=== PATIENT | female | born 1940 | race Caucasian/White ===

== ENCOUNTER 2017-01-25 16:12 | Outpatient (CLI) | payer MEDICARE ==
--- NOTE | 2017-01-26 09:27 | XRAY Report ---
BILATERAL HIPS AND PELVIS: 01/25/2017 CLINICAL INDICATION: Bilateral hip pain. FINDINGS: Frontal view of the hips and pelvis and bilateral frogleg lateral views of the hips demons trate mild degenerative changes in both hips. There is no evidence of acute fracture. The visualize d bowel gas pattern is normal. IMPRESSION: MILD BILATERAL HIP OSTEOARTHRITIS. JOB #: [id number] EXT JOB #:[id number]
--- NOTE | 2017-01-26 09:32 | XRAY Report ---
THREE-VIEW BILATERAL KNEES: 01/25/2017 CLINICAL INDICATION: Pain. FINDINGS: AP, lateral, sunrise views of both knees are compared to previous films of the right knee of 12/05/2012. There is moderate bilateral osteoarthritis, worse laterally on the right and medially on the left. There is no evidence of acute fracture. A moderate right effusion is present. No lef t effusion is seen. IMPRESSION: MODERATE BILATERAL OSTEOARTHRITIS. MODERATE RIGHT JOINT EFFUSION. NO EVIDENCE OF FRACT URE. JOB #: [id number] EXT JOB #:[id number]
== END 2017-01-25 16:13 | disposition home or self-care (01) ==
LOC: DI 16:12
PROVIDERS: ATTEND Internal Medicine
DX: M16.0 Bilateral primary osteoarthritis of hip (principal); M17.0 Bilateral primary osteoarthritis of knee; M25.461 Effusion, right knee
CPT/HCPCS: 73521

== ENCOUNTER 2017-02-10 09:19 | Day surgery (SDC) | payer MEDICARE ==
[~2017-02-10 09:19] MED LIST: PHENYLEPHRINE 2.5% OPHTH 2 ML DROPS ONE
[2017-02-10] MEDS ORDERED: PHENYLEPHRINE 2.5% OPHTH 2 ML DROPS OPTH ONE (09:52)
[2017-02-10] MEDS ORDERED: CYCLOPENTOLATE 1% OPHTH DROPS 2 ML OPTH ONE (09:52)
[2017-02-10] MEDS ORDERED: PROPARACAINE 0.5% OPHTH DROPS 15 ML OPTH ONE ×2 (09:52→10:59)
[2017-02-10] MEDS ORDERED: KETOROLAC 0.45% OPHTH DROPS OPTH ONE (09:52)
[2017-02-10] MEDS ORDERED: LACTATED RINGERS 500 ML IV ONE (09:53)
[2017-02-10] MEDS ORDERED: CHONDR SULF/HYALURONATE SYRINGE IO ONE (10:59)
[2017-02-10] MEDS ORDERED: TIMOLOL 0.5% OPHTH DROPS OPTH ONE (10:59)
[2017-02-10] MEDS ORDERED: EPINEPHrine 1 MG/ML AMP IVP ONE (10:59)
[2017-02-10] MEDS ORDERED: BRIMONIDINE 0.2% OPHTH DROPS 5 ML OPTH ONE (10:59)
[2017-02-10] MEDS ORDERED: MIDAZOLAM 2 MG/2 ML VIAL IVP ONE (11:00)
[2017-02-10] MEDS ORDERED: BSS/LIDOCAINE/EPINEPHRINE 1 ML SYRINGE IO ONE (11:00)
[2017-02-10] MEDS ORDERED: TRIAMCIN/MOXIFLOX/VANCO 1 ML VIAL IO ONE (11:00)
[2017-02-10 11:51] VITALS: BP 131/67
--- NOTE | 2017-02-10 14:51 | OPERATIVE REPORT ---
DATE OF SURGERY: 02/10/2017 00:00:00 PREOPERATIVE DIAGNOSIS: Visually significant cataract, right eye. This was her first cataract surgery. POSTOPERATIVE DIAGNOSIS: Visually significant cataract, right eye. This was her first cataract surgery. NAME OF PROCEDURE: Phacoemulsification with posterior chamber intraocular lens implant, right eye. SURGEON: Hamzah Franks MD ANESTHESIA: Monitored anesthesia care. COMPLICATIONS: None. OPERATIVE INDICATIONS: This is a 76-year-old woman with progressive vision loss in the right eye due to 2+ nuclear sclerotic and 3+ cortical cataract. Best corrected visual acuity was 20/40 with glare to 20/60 in the right eye. Indications for surgery were overall decrease in vision, difficulty reading, difficulty seeing street signs, and just overall complaint of cloudy vision. She was consented at length concerning the risks and benefits of cataract surgery after which she expressed a desire to proceed with surgery. OPERATIVE PROCEDURE: The patient was taken into OR #2 and placed under monitored anesthesia care. A surgical time-out was conducted confirming correct patient, correct procedure and correct surgical site. She was placed under the LenSx laser and her eye docked to the laser interface. The laser performed the capsulotomy, lens softening, phaco wounds, and arcuate keratotomy incisions. She was then moved to the operating microscope, given topical anesthesia, and then prepped and draped in the usual sterile fashion. The eye was entered at the 12 and 9 o'clock positions. Intracameral Shugarcaine was injected into the anterior chamber, followed by Viscoat. Capsulorrhexis flap created by the LenSx laser was removed from the anterior chamber. The nucleus was hydrodissected and phacoemulsified. Cortex was evacuated using automated infusion aspiration. Provisc was injected into the capsular bag and a 16.5 diopter toric intraocular lens was inserted into the bag and rotated into axis 093. I/A was used to evacuate the viscoelastic materials while holding the lens in the proper position. The eye was inflated to physiologic pressure using balanced salt solution and found to be watertight. Again, the lens position was verified. Approximately 0.8 mL of a mixture of triamcinolone, moxifloxacin, and vancomycin was injected subconjunctivally in the superior quadrant for infection and inflammation prophylaxis. The wounds were then checked again. The patient was taken from the operating room in good condition and given postoperative instructions. JOB #: [id number] EXT JOB #:[id number]
== END 2017-02-10 09:20 | disposition home or self-care (01) ==
LOC: SDS 09:19
PROVIDERS: ATTEND Ophthalmology
PROC: 08RJ3JZ Replacement of Right Lens with Synthetic Substitute, Percutaneous Approach (ICD-10-PCS; principal; 2017-02-10 10:30)
DX: H25.811 Combined forms of age-related cataract, right eye (principal); R03.0 Elevated blood-pressure reading, without diagnosis of hypertension; E03.9 Hypothyroidism, unspecified; Z83.3 Family history of diabetes mellitus; Z90.710 Acquired absence of both cervix and uterus
CPT/HCPCS: 66984; A9270; V2632; V2787

== ENCOUNTER 2017-03-17 08:55 | Day surgery (SDC) | payer MEDICARE ==
[2017-03-17] MEDS ORDERED: KETOROLAC 0.45% OPHTH DROPS ONE (09:35)
[2017-03-17] MEDS ORDERED: CYCLOPENTOLATE 1% OPHTH DROPS 2 ML ONE (09:36)
[2017-03-17] MEDS ORDERED: PROPARACAINE 0.5% OPHTH DROPS 15 ML ONE (09:36)
[2017-03-17] MEDS ORDERED: PHENYLEPHRINE 2.5% OPHTH 2 ML DROPS ONE (09:36)
[2017-03-17] MEDS ORDERED: LACTATED RINGERS 500 ML IV ONE (09:37)
[2017-03-17] MEDS ORDERED: PHENYLEPHRINE 2.5% OPHTH 2 ML DROPS OPTH ONE (09:50)
[2017-03-17] MEDS ORDERED: CYCLOPENTOLATE 1% OPHTH DROPS 2 ML OPTH ONE (09:50)
[2017-03-17] MEDS ORDERED: PROPARACAINE 0.5% OPHTH DROPS 15 ML OPTH ONE ×2 (09:50→11:05)
[2017-03-17] MEDS ORDERED: KETOROLAC 0.45% OPHTH DROPS OPTH ONE (09:50)
[2017-03-17] MEDS ORDERED: MIDAZOLAM 2 MG/2 ML VIAL ONE (10:34)
[2017-03-17] MEDS ORDERED: BRIMONIDINE 0.2% OPHTH DROPS 5 ML OPTH ONE (11:04)
[2017-03-17] MEDS ORDERED: EPINEPHrine 1 MG/ML AMP IVP ONE (11:04)
[2017-03-17] MEDS ORDERED: TIMOLOL 0.5% OPHTH DROPS OPTH ONE (11:05)
[2017-03-17] MEDS ORDERED: BSS/LIDOCAINE/EPINEPHRINE 1 ML SYRINGE IO ONE ×2 (11:05)
[2017-03-17] MEDS ORDERED: TRIAMCIN/MOXIFLOX/VANCO 1 ML VIAL IO ONE ×2 (11:05)
[2017-03-17] MEDS ORDERED: CHONDR SULF/HYALURONATE SYRINGE IO ONE (11:05)
[2017-03-17 11:24] VITALS: BP 130/72
--- NOTE | 2017-03-18 03:40 | OPERATIVE REPORT ---
DATE OF SURGERY: 03/17/2017 00:00:00 PREOPERATIVE DIAGNOSIS: Visually significant cataract left eye. Cataract surgery was performed on the right eye on 10 February 2017. POSTOPERATIVE DIAGNOSIS: Visually significant cataract left eye. Cataract surgery was performed on the right eye on 10 February 2017. NAME OF PROCEDURE: Phacoemulsification posterior chamber intraocular lens implant, left eye. SURGEON: Hamzah Franks M.D. ANESTHESIA: Monitored anesthesia care. COMPLICATIONS: None. OPERATIVE INDICATIONS: This is a 76-year-old woman with progressive vision loss in the right eye due to 3+ cortical cataract. Best corrected visual acuity was 20/30 in the left eye. INDICATIONS FOR SURGERY: Overall decrease in vision, difficulty seeing words on a computer screen and difficulty with reading. She was consented at length concerning risks and benefits of cataract surgery after which she expressed a desire to proceed with surgery. OPERATIVE PROCEDURE: The patient was taken into OR #2 and placed under monitored anesthesia care. A surgical timeout was conducted confirming correct patient, correct procedure and correct surgical site. She was placed under the LenSx laser and her eye docked to laser interface. Laser performed a capsulotomy and lens softening, phaco-wounds and ocular keratotomy incisions. She was then moved to the operating microscope, given topical anesthesia and prepped and draped in the usual sterile fashion. The eye was entered at the 6 and 3 o'clock positions. Intracameral Shugarcaine was injected into the anterior chamber followed by Viscoat. Capsulorhexis flap created by the LenSx laser was removed from the anterior chamber. The nucleus was hydrodissected and phacoemulsified. The cortex was evacuated using automated infusion aspiration. Provisc was injected in the capsular bag and an 18.0 Diopter Toric intraocular lens was inserted into the bag and rotated to axis 0.92. Approximately 0.7 mL of a mixture of triamcinolone, moxifloxacin, vancomycin was injected subconjunctivally in the superior quadrant for infection and inflammation prophylaxis. I/A was used to evacuate the viscoelastic materials and the new lens verified to be in the proper position. The eye was inflated to a physiologic pressure using balanced salt solution and found to be watertight. The IOL axis was again verified to be at the proper orientation of axis 0.92. The patient was taken from the operating room in good condition and given postoperative instructions. JOB #: [id number] EXT JOB #:[id number] MTDD
== END 2017-03-17 08:56 | disposition home or self-care (01) ==
LOC: SDS 08:55
PROVIDERS: ATTEND Ophthalmology
PROC: 08RK3JZ Replacement of Left Lens with Synthetic Substitute, Percutaneous Approach (ICD-10-PCS; principal; 2017-03-17 10:00)
DX: H25.812 Combined forms of age-related cataract, left eye (principal); I10 Essential (primary) hypertension; E03.9 Hypothyroidism, unspecified; Z83.3 Family history of diabetes mellitus; Z90.710 Acquired absence of both cervix and uterus
CPT/HCPCS: 66984; A9270; J3490; V2632

== ENCOUNTER 2017-05-11 08:37 | Outpatient (CLI) | payer MEDICARE ==
--- NOTE | 2017-05-13 07:06 | Mammography Report ---
DIGITAL SCREENING MAMMOGRAPHY: 05/11/2017 COMPARISON: 01/03/2014, 12/02/2011, 09/28/2010, 03/16/2010, 09/12/2009, 08/27/2009, and 05/10/2007. TECHNIQUE: Bilateral digital CC and MLO projections. FINDINGS: There are scattered fibroglandular densities. There is a stereotactic biopsy clip in the anterior right breast. A lateral nodule in the right breast is unchanged compared to priors. Otherw ise, no dominant mass, architectural distortion, skin thickening, suspicious microcalcifications, or interval change. IMPRESSION: NEGATIVE. BIRADS CATEGORY 1. SUGGEST RETURN TO ROUTINE SCREENING IN 12 MONTHS. STANDARD QUALIFYING STATEMENTS 1. This examination was reviewed with the aid of Computer-Aided Detection (CAD). 2. A negative or benign imaging report should not delay biopsy if clinically suspicious findings are present. Consider surgical consultation if warranted. More than 5% of cancers are not identified by i maging. 3. Dense breasts may obscure an underlying neoplasm. JOB #: [id number] EXT JOB #:[id number]
== END 2017-05-11 08:38 | disposition home or self-care (01) ==
LOC: DI.N 08:37
PROVIDERS: ATTEND Internal Medicine
DX: Z12.31 Encounter for screening mammogram for malignant neoplasm of breast (principal)
CPT/HCPCS: 77067

== ENCOUNTER 2017-05-11 13:39 | Outpatient (CLI) | payer MEDICARE ==
[2017-05-11 13:26] LABS: BASOPHILS # (AUTO) 0.1 10^3/uL (0.0-0.1); BASOPHILS % (AUTO) 0.8 %; EOSINOPHILS # (AUTO) 0.1 10^3/uL (0.0-0.7); EOSINOPHILS % (AUTO) 1.1 %; HCT - HEMATOCRIT 43.1 % (37.0-47.0); HGB - HEMOGLOBIN 14.5 g/dL (12.0-16.0); LYMPHOCYTES # (AUTO) 0.9 10^3/uL (1.5-3.5); LYMPHOCYTES % (AUTO) 14.3 %; MEAN CORPUSCULAR HEMOGLOBIN 28.6 pg (27.0-31.0); MEAN CORPUSCULAR HGB CONC 33.6 g/dL (32.0-36.0); MEAN CORPUSCULAR VOLUME 85.2 fL (81.0-99.0); MEAN PLATELET VOLUME 9.8 fL (7.9-10.8); MONOCYTES # (AUTO) 0.5 10^3/uL (0.0-1.0); MONOCYTES % (AUTO) 8.1 %; NEUTROPHILS # (AUTO) 4.5 10^3/uL (1.5-6.6); NEUTROPHILS % (AUTO) 75.7 %; RED BLOOD COUNT 5.06 10^6/uL (4.20-5.40); RED CELL DISTRIBUTION WIDTH 14.4 % (12.0-15.0)
[2017-05-11 13:52] LABS: BILIRUBIN,TOTAL 1.4 mg/dL (0.2-1.0); BUN - BLOOD UREA NITROGEN 11 mg/dL (6-20); CALCIUM 9.2 mg/dL (8.5-10.3); CARBON DIOXIDE - CO2 28 mmol/L (21-32); CHLORIDE 101 mmol/L (101-111); CHOL/HDL RATIO 4.4 (<4.4); CHOLESTEROL 194 mg/dL; CREATININE 0.7 mg/dL (0.4-1.0); GFR - MDRD 82 (>89); GLUCOSE 97 mg/dL (70-100); HDL CHOLESTEROL 44 mg/dL; LDL/HDL RATIO 2.7 (<4.4); POTASSIUM 3.5 mmol/L (3.5-5.0); SODIUM 138 mmol/L (135-145); TRIGLYCERIDES 148 mg/dL; VLDL CHOLESTEROL 30 mg/dL
== END 2017-05-11 13:40 | disposition home or self-care (01) ==
LOC: LAB.N 13:39
PROVIDERS: ATTEND Internal Medicine
DX: D70.9 Neutropenia, unspecified (principal); E03.9 Hypothyroidism, unspecified; E78.5 Hyperlipidemia, unspecified; I10 Essential (primary) hypertension
CPT/HCPCS: 36415; 80053; 80061; 84443; 85025

== ENCOUNTER 2018-06-26 09:05 | Outpatient (CLI) | payer MEDICARE ==
[2018-06-26 13:14] LABS: BASOPHILS % (AUTO) 0.7 %; EOSINOPHILS # (AUTO) 0.1 10^3/uL (0.0-0.7); EOSINOPHILS % (AUTO) 1.6 %; HGB - HEMOGLOBIN 12.3 g/dL (12.0-16.0); LYMPHOCYTES # (AUTO) 0.9 10^3/uL (1.5-3.5); LYMPHOCYTES % (AUTO) 19.1 %; MEAN CORPUSCULAR HEMOGLOBIN 25.9 pg (27.0-31.0); MEAN CORPUSCULAR HGB CONC 33.1 g/dL (32.0-36.0); MEAN CORPUSCULAR VOLUME 78.2 fL (81.0-99.0); MEAN PLATELET VOLUME 10.1 fL (7.9-10.8); MONOCYTES # (AUTO) 0.4 10^3/uL (0.0-1.0); MONOCYTES % (AUTO) 8.1 %; NEUTROPHILS # (AUTO) 3.4 10^3/uL (1.5-6.6); NEUTROPHILS % (AUTO) 70.5 %; PLT - PLATELET COUNT 138 10^3/uL (130-450); RED BLOOD COUNT 4.75 10^6/uL (4.20-5.40); RED CELL DISTRIBUTION WIDTH 16.9 % (12.0-15.0); WHITE BLOOD COUNT 4.8 x10^3/uL (4.8-10.8)
[2018-06-26 13:31] LABS: ALBUMIN 3.5 g/dL (3.2-5.5); ALKALINE PHOSPHATASE 49 IU/L (42-121); ALT ALANINE AMINOTRANSFERASE 18 IU/L (10-60); AST ASPARTATE AMINOTRANSFERASE 24 IU/L (10-42); BILIRUBIN,TOTAL 0.9 mg/dL (0.2-1.0); BUN - BLOOD UREA NITROGEN 16 mg/dL (6-20); CALCIUM 8.7 mg/dL (8.5-10.3); CARBON DIOXIDE - CO2 25 mmol/L (21-32); CHLORIDE 104 mmol/L (101-111); CHOL/HDL RATIO 3.5 (<4.4); CHOLESTEROL 164 mg/dL; CREATININE 0.6 mg/dL (0.4-1.0); GFR - MDRD 97 (>89); GLUCOSE 92 mg/dL (70-100); HDL CHOLESTEROL 47 mg/dL; LDL CHOLESTEROL,CALCULATED 95 mg/dL; SODIUM 139 mmol/L (135-145); VLDL CHOLESTEROL 22 mg/dL
== END 2018-06-26 09:06 | disposition home or self-care (01) ==
LOC: LAB.N 09:05
PROVIDERS: ATTEND Internal Medicine
DX: D70.9 Neutropenia, unspecified (principal); E03.9 Hypothyroidism, unspecified; E78.5 Hyperlipidemia, unspecified; I10 Essential (primary) hypertension
CPT/HCPCS: 36415; 80053; 80061; 83721; 84443; 85025

== ENCOUNTER 2018-06-26 11:39 | Outpatient (CLI) | payer MEDICARE ==
--- NOTE | 2018-06-27 11:23 | Mammography Report ---
Reason: SCREENING MAMMOGRAM Procedure Date: 06/26/2018 Accession Number: [id number] / [id number] Procedure: MGN - Screening Mammo Dig Bilat CPT Code: FULL RESULT: EXAM: Screening Mammo Dig Bilat DATE: 06/26/2018 12:05 PM CLINICAL HISTORY: 77-year-old female with family history of breast cancer in the daughter at age 35 as well as personal history of biopsy of the right breast with benign results. The patient is here for screening. TECHNIQUE: Bilateral CC and MLO views were obtained. A left cleavage view was also obtained. COMPARISON: 05/11/2017, 01/03/2014, 12/02/2011, 09/28/2010. FINDINGS: The breasts demonstrate scattered fibroglandular densities bilaterally. A biopsy marker is again seen in the right breast and is unchanged, typically benign. No suspicious masses, clustered microcalcifications, or regions of architectural distortion are identified. IMPRESSION: Benign findings RECOMMENDATION: Routine annual screening unless otherwise clinically indicated. BIRADS CATEGORY 2: Benign findings STANDARD QUALIFYING STATEMENTS: 1. This examination was reviewed with the aid of Computer-Aided Detection (CAD). 2. A negative or benign imaging report should not delay biopsy if clinically suspicious findings are present. Consider surgical consultation if warrented. More than 5% of cancers are not identified by imaging. 3. Dense breasts may obscure an underlying neoplasm. 4. This examination was reviewed without the aid of 3D breast imaging (tomosynthesis).
== END 2018-06-26 11:40 | disposition home or self-care (01) ==
LOC: DI.N 11:39
PROVIDERS: ATTEND Internal Medicine
DX: Z12.31 Encounter for screening mammogram for malignant neoplasm of breast (principal); Z80.3 Family history of malignant neoplasm of breast
CPT/HCPCS: 77067

== ENCOUNTER 2018-09-16 07:57 | Emergency (ER) | payer MEDICARE ==
[2018-09-16 08:13] VITALS: BP 169/84
[2018-09-16] MEDS ORDERED: SODIUM CHLORIDE 0.9% 1,000 ML IV ONE (08:33)
--- NOTE | 2018-09-16 08:36 | ED Physician Documentation ---
History of Present Illness - Stated complaint Stated Complaint: LT FOOT PX - Chief complaint Chief Complaint: Ext Problem - History obtained from History obtained from: Patient - History of Present Illness Timing: Enter time (399), Today - Additonal information Additional information: Previously well 77-year-old female who is on hydrochlorothiazide and Synthroid was awakened at 4:00 in the morning with severe pain in the dorsum of her left foot. She felt this was a cramp she did get up and drink some water and tried to walk around she was unable to walk this off entirely and this morning she has persistence of this pain in an area over the top of the foot that is very tender. She still feels that this area is cramped up. She is come to the emergency department for evaluation. She states that the last visit to her primary care doctor was for routine physical exam and all of her laboratory tests were good. She denies any nocturia denies any polyuria polydipsia. Review of Systems Constitutional: denies: Fever, Chills, Myalgias, Fatigue, Sweats Eyes: denies: Decreased vision Ears: denies: Ear pain Nose: denies: Congestion Throat: denies: Sore throat Cardiac: denies: Chest pain / pressure, Palpitations Respiratory: denies: Dyspnea, Cough GI: denies: Abdominal Pain, Nausea, Vomiting, Constipation, Diarrhea : denies: Dysuria, Frequency Skin: denies: Rash Musculoskeletal: reports: Extremity pain, Extremity swelling, Pain with weight bearing. denies: Neck pain, Back pain Neurologic: denies: Generalized weakness, Focal weakness, Numbness Endocrine: denies: Polydypsia, Polyuria PD PAST MEDICAL HISTORY - Past Medical History Cardiovascular: None Respiratory: None Endocrine/Autoimmune: HyPOthyroidism GI: None : None HEENT: Chronic vision loss Psych: None Musculoskeletal: Osteoarthritis Derm: Psoriasis - Past Surgical History General: Colonoscopy Ortho: Arthroscopic surgery /SALES ENGINEER: Hysterectomy HEENT: Cataracts - Present Medications Home Medications: Ambulatory Orders Medication Instructions Recorded Confirmed Levothyroxine [Synthroid] 1 tab PO DAILY 02/09/17 03/17/17 Hydrochlorothiazide 12.5 mg PO DAILY 03/17/17 03/17/17 traMADol [Ultram] 50 - 100 mg PO Q6H PRN #20 tablet 09/16/18 - Allergies Allergies/Adverse Reactions: Allergies Allergy/AdvReac Type Severity Reaction Status Date / Time No Known Drug Allergies Allergy Verified 09/16/18 08:12 - Social History Does the pt smoke?: No Smoking Status: Never smoker - Immunizations Immunizations are current?: Yes PD ED PE NORMAL - Vitals Vital signs reviewed: Yes (hypertensive ) - General General: Alert and oriented X 3, No acute distress, Well developed/nourished - HEENT HEENT: Atraumatic, PERRL, EOMI - Neck Neck: Supple, no meningeal sign, No bony TTP - Respiratory Respiratory: No respiratory distress - Back Back: No CVA TTP, No spinal TTP - Derm Derm: Normal color, Warm and dry, No rash - Extremities Extremities: No deformity, Other (There is point tenderness to the dorsum of the left foot over the distal metatarsals from #4 to the lateral aspect of #1. There is mild swelling over the area without erythema. The swelling is not consistent with gout. There is no specific pain to movement of the 1st MTP joint. distal n/v is intact. ) - Neuro Neuro: Alert and oriented X 3, presales engineer 2-12 intact, No motor deficit, No sensory deficit, Normal speech Eye Opening: To Voice Verbal: Oriented - Psych Psych: Normal mood, Normal affect Results - Vitals Vitals: Vital Signs - 24 hr 09/16/18 08:10 Temperature 36.8 C Heart Rate 72 Respiratory 16 Rate Blood Pressure 169/84 H O2 Saturation 99 Oxygen O2 Source Room air - Labs Labs: Laboratory Tests 09/16/18 09/16/18 09/16/18 08:54 08:54 08:54 WBC 7.1 RBC 4.90 Hgb 13.1 Hct 39.3 MCV 80.2 L MCH 26.8 L MCHC 33.3 RDW 17.0 H Plt Count 133 MPV 8.9 Neut # (Auto) 6.0 Lymph # (Auto) 0.5 L Hartley # (Auto) 0.5 Eos # (Auto) 0.0 Baso # (Auto) 0.0 Absolute Nucleated RBC 0.00 Nucleated RBC % 0.0 Sodium 140 Potassium 3.7 Chloride 102 Carbon Dioxide 29 Anion Gap 9.0 BUN 13 Creatinine 0.6 Estimated GFR (MDRD) 97 Glucose 110 H Uric Acid Calcium 9.1 Total Bilirubin 1.0 AST 25 ALT 21 Alkaline Phosphatase 51 Troponin I < 0.04 Total Protein 7.4 Albumin 3.6 Globulin 3.8 Albumin/Globulin Ratio 0.9 L Lipase 37 Urine Color Urine Clarity Urine pH Ur Specific Edison Urine Protein Urine Glucose (UA) Urine Ketones Urine Occult Blood Urine Nitrite Urine Bilirubin Urine Urobilinogen Ur Leukocyte Esterase Urine RBC Urine WBC Ur Squamous Epith Cells Urine Bacteria Ur Microscopic Review Urine Culture Comments 09/16/18 09/16/18 08:54 09:53 WBC RBC Hgb Hct MCV MCH MCHC RDW Plt Count MPV Neut # (Auto) Lymph # (Auto) Hartley # (Auto) Eos # (Auto) Baso # (Auto) Absolute Nucleated RBC Nucleated RBC % Sodium Potassium Chloride Carbon Dioxide Anion Gap BUN Creatinine Estimated GFR (MDRD) Glucose Uric Acid 5.4 Calcium Total Bilirubin AST ALT Alkaline Phosphatase Troponin I Total Protein Albumin Globulin Albumin/Globulin Ratio Lipase Urine Color LIGHT YELLOW Urine Clarity CLEAR Urine pH 7.5 Ur Specific Edison 1.010 Urine Protein NEGATIVE Urine Glucose (UA) NEGATIVE Urine Ketones NEGATIVE Urine Occult Blood NEGATIVE Urine Nitrite NEGATIVE Urine Bilirubin NEGATIVE Urine Urobilinogen 0.2 (NORMAL) Ur Leukocyte Esterase TRACE H Urine RBC None Seen Urine WBC 0-3 Ur Squamous Epith Cells RARE Squamous Urine Bacteria Rare Ur Microscopic Review INDICATED Urine Culture Comments INDICATED - Rads (name of study) foot Radiology: Prelim report reviewed (Impression: 1. No definite acute osseous or articular abnormality. Old appearing deformity of the second metatarsal head and second proximal phalangeal base with moderate degenerative joint disease, which may be posttraumatic.), EMP read indepedently, See rad report Procedures - IVC sono (time) 0830 Bedside IVC sono: IVC measures (cm) (1.18), IVC collapsed c insp (cm) (complete), Dehydration (est 1 liter deficit) PD MEDICAL DECISION MAKING - ED course Complexity details: considered differential, d/w patient ED course: 77-year-old female awakened in the middle of the night with a severe pain in her left foot feels that she has had some cramping, and on interrogation of the inferior vena cava, she is found to be dehydrated. IV is begun with normal saline and her electrolytes are checked as well as an x-ray of her foot. There is abnormality to the distal 2nd metatarsal consistent with remote injury and the patient does not give any history of this. Her uric acid is normal. There is some swelling to the dorsum without erythema. She is given decadron and tylenol and we will refer her to the executive talent acquisition consultant for further diagnostics on this metatarsalgia. Departure - Departure Disposition: 01 Home, Self Care Clinical Impression: Metatarsalgia of left foot Condition: Stable Instructions: Metatarsalgia Follow-Up: Ravi Kumar MD [Primary Care Provider] - Florence Cano DPM [Provider Admit Priv/Credential] - Prescriptions: traMADol [Ultram] 50 - 100 mg PO Q6H PRN #20 tablet PRN Reason: Pain Comments: Today in the Emergency Department your blood pressure was elevated. This can happen from the stress of the visit itself, from a current illness or circumstance or from uncontrolled hypertension. If you take blood pressure medications take your usual mediations, have your blood pressure re-checked in an appropriate setting and follow up any elevation with your primary care doctor.
--- NOTE | 2018-09-16 09:06 | XRAY Report ---
Reason: pain over dorsum distal MT's Procedure Date: 09/16/2018 Accession Number: [id number] / [id number] Procedure: XR - Foot 3 View LT CPT Code: FULL RESULT: EXAM: LEFT FOOT RADIOGRAPHY EXAM DATE: 09/16/2018 08:46 AM. CLINICAL HISTORY: Pain over dorsum distal MTs. COMPARISON: None. TECHNIQUE: 3 views. FINDINGS: Bones: There is deformity at the second metatarsophalangeal joint with widening of the second metatarsal head and second proximal phalangeal base. This has the appearance of chronic deformity, possibly sequela of previous injury. No definite new, acute fracture. An os peroneum is present. A small plantar calcaneal spur is present. Joints: Moderate joint space narrowing at the second metatarsophalangeal joint. Probable mild joint space narrowing at the first and third metatarsophalangeal joints. Soft Tissues: Unremarkable. IMPRESSION: 1. No definite acute osseous or articular abnormality. 2. Old-appearing deformity of the second metatarsal head and second proximal phalangeal base with moderate degenerative joint disease, which may be posttraumatic. RADIA
[2018-09-16 09:16] LABS: BASOPHILS % (AUTO) 0.6 %; EOSINOPHILS % (AUTO) 0.4 %; HGB - HEMOGLOBIN 13.1 g/dL (12.0-16.0); LYMPHOCYTES # (AUTO) 0.5 10^3/uL (1.5-3.5); LYMPHOCYTES % (AUTO) 6.9 %; MEAN CORPUSCULAR HEMOGLOBIN 26.8 pg (27.0-31.0); MEAN CORPUSCULAR HGB CONC 33.3 g/dL (32.0-36.0); MEAN CORPUSCULAR VOLUME 80.2 fL (81.0-99.0); MEAN PLATELET VOLUME 8.9 fL (7.9-10.8); MONOCYTES # (AUTO) 0.5 10^3/uL (0.0-1.0); MONOCYTES % (AUTO) 7.3 %; NEUTROPHILS % (AUTO) 84.8 %; PLT - PLATELET COUNT 133 10^3/uL (130-450); WHITE BLOOD COUNT 7.1 x10^3/uL (4.8-10.8)
[2018-09-16 09:29] LABS: ALBUMIN 3.6 g/dL (3.2-5.5); ALBUMIN/GLOBULIN RATIO 0.9 (1.0-2.2); CALCIUM 9.1 mg/dL (8.5-10.3); CREATININE 0.6 mg/dL (0.4-1.0); TOTAL PROTEIN 7.4 g/dL (6.7-8.2)
[2018-09-16] MEDS ORDERED: ACETAMINOPHEN 325 MG TABLET PO STA (10:32)
[2018-09-16 10:34] LABS: BILIRUBIN,URINE NEGATIVE (NEGATIVE); GLUCOSE, URINE (UA) NEGATIVE (NEGATIVE); KETONES,URINE (UA) NEGATIVE (NEGATIVE); LEUKOCYTE ESTERASE, URINE TRACE (NEGATIVE); NITRITE,URINE NEGATIVE (NEGATIVE); OCCULT BLOOD,URINE NEGATIVE (NEGATIVE); PH,URINE 7.5 PH (5.0-7.5); PROTEIN,URINE NEGATIVE (NEGATIVE); UROBILINOGEN,URINE 0.2 (NORMAL) E.U./dL (NORMAL)
[2018-09-16 10:43] LABS: CLARITY,URINE CLEAR (CLEAR)
[2018-09-16 10:51] LABS: BACTERIA,URINE Rare /HPF (None Seen); RBC,URINE None Seen /HPF (0-5); SQUAMOUS EPITHELIAL CELL,UR RARE Squamous (<= Few)
[2018-09-16] MEDS ORDERED: DEXAMETHASONE 10 MG/ML VIAL PO STA (11:30)
== END 2018-09-16 11:48 | disposition home or self-care (01) ==
LOC: ED 07:57
DX: M77.42 Metatarsalgia, left foot (principal); E86.0 Dehydration; R03.0 Elevated blood-pressure reading, without diagnosis of hypertension; E03.9 Hypothyroidism, unspecified
CPT/HCPCS: 36415; 73630; 80053; 81001; 83690; 84484; 84550; 85025; 87086; 96360; 99283; A9270; 81003

== ENCOUNTER 2019-06-05 09:16 | Outpatient (CLI) | payer MEDICARE ==
[2019-06-05 09:57] LABS: BASOPHILS % (AUTO) 0.6 %; EOSINOPHILS # (AUTO) 0.1 10^3/uL (0.0-0.7); EOSINOPHILS % (AUTO) 1.1 %; HGB - HEMOGLOBIN 14.6 g/dL (12.0-16.0); LYMPHOCYTES # (AUTO) 0.9 10^3/uL (1.5-3.5); LYMPHOCYTES % (AUTO) 18.6 %; MEAN CORPUSCULAR HEMOGLOBIN 27.8 pg (27.0-31.0); MEAN CORPUSCULAR VOLUME 86.7 fL (81.0-99.0); MEAN PLATELET VOLUME 10.8 fL (7.9-10.8); MONOCYTES # (AUTO) 0.4 10^3/uL (0.0-1.0); MONOCYTES % (AUTO) 8.9 %; NEUTROPHILS # (AUTO) 3.3 10^3/uL (1.5-6.6); NEUTROPHILS % (AUTO) 70.6 %; PLT - PLATELET COUNT 141 10^3/uL (130-450); RED BLOOD COUNT 5.26 10^6/uL (4.20-5.40); RED CELL DISTRIBUTION WIDTH 14.4 % (12.0-15.0); WHITE BLOOD COUNT 4.7 x10^3/uL (4.8-10.8)
[2019-06-05 10:26] LABS: ALBUMIN 3.8 g/dL (3.2-5.5); ALBUMIN/GLOBULIN RATIO 1.1 (1.0-2.2); ALKALINE PHOSPHATASE 50 IU/L (42-121); ALT ALANINE AMINOTRANSFERASE 24 IU/L (10-60); AST ASPARTATE AMINOTRANSFERASE 24 IU/L (10-42); BILIRUBIN,TOTAL 1.3 mg/dL (0.2-1.0); BUN - BLOOD UREA NITROGEN 13 mg/dL (6-20); CARBON DIOXIDE - CO2 32 mmol/L (21-32); CHLORIDE 100 mmol/L (101-111); CHOLESTEROL 180 mg/dL; CREATININE 0.6 mg/dL (0.4-1.0); GFR - MDRD 97 (>89); GLUCOSE 99 mg/dL (70-100); HDL CHOLESTEROL 45 mg/dL; LDL CHOLESTEROL,CALCULATED 113 mg/dL; LDL/HDL RATIO 2.5 (<4.4); SODIUM 142 mmol/L (135-145); TOTAL PROTEIN 7.4 g/dL (6.7-8.2); URIC ACID 4.8 mg/dL (2.6-7.2); VLDL CHOLESTEROL 22 mg/dL
[2019-06-05 11:01] LABS: THYROID STIMULATING HORMONE 1.22 uIU/mL (0.34-5.60)
[2019-06-05 11:03] LABS: FREE T4 (FREE THYROXINE) 1.16 ng/dL (0.58-1.64)
== END 2019-06-05 09:17 | disposition home or self-care (01) ==
LOC: LAB 09:16
PROVIDERS: ATTEND Family Medicine
DX: E03.9 Hypothyroidism, unspecified (principal); E78.5 Hyperlipidemia, unspecified; I10 Essential (primary) hypertension
CPT/HCPCS: 36415; 80053; 80061; 83721; 84439; 84443; 84481; 84550; 85025

== ENCOUNTER 2019-08-21 10:29 | Outpatient (CLI) | payer MEDICARE ==
[2019-08-21 12:00] LABS: BASOPHILS % (AUTO) 0.9 %; EOSINOPHILS # (AUTO) 0.1 10^3/uL (0.0-0.7); EOSINOPHILS % (AUTO) 1.5 %; HGB - HEMOGLOBIN 14.5 g/dL (12.0-16.0); LYMPHOCYTES # (AUTO) 0.9 10^3/uL (1.5-3.5); LYMPHOCYTES % (AUTO) 18.6 %; MEAN CORPUSCULAR HEMOGLOBIN 28.5 pg (27.0-31.0); MEAN CORPUSCULAR VOLUME 86.4 fL (81.0-99.0); MONOCYTES # (AUTO) 0.4 10^3/uL (0.0-1.0); NEUTROPHILS # (AUTO) 3.3 10^3/uL (1.5-6.6); NEUTROPHILS % (AUTO) 70.8 %; PLT - PLATELET COUNT 157 10^3/uL (130-450); RED BLOOD COUNT 5.09 10^6/uL (4.20-5.40); RED CELL DISTRIBUTION WIDTH 14.3 % (12.0-15.0); WHITE BLOOD COUNT 4.6 x10^3/uL (4.8-10.8)
[2019-08-21 12:07] LABS: BILIRUBIN,URINE NEGATIVE (NEGATIVE); CLARITY,URINE CLEAR (CLEAR); GLUCOSE, URINE (UA) NEGATIVE (NEGATIVE); KETONES,URINE (UA) NEGATIVE (NEGATIVE); LEUKOCYTE ESTERASE, URINE NEGATIVE (NEGATIVE); NITRITE,URINE NEGATIVE (NEGATIVE); OCCULT BLOOD,URINE NEGATIVE (NEGATIVE); PROTEIN,URINE NEGATIVE (NEGATIVE); UROBILINOGEN,URINE 0.2 (NORMAL) E.U./dL (NORMAL)
[2019-08-21 12:09] LABS: ALBUMIN 3.8 g/dL (3.2-5.5); ALBUMIN/GLOBULIN RATIO 1.1 (1.0-2.2); BILIRUBIN,TOTAL 1.4 mg/dL (0.2-1.0); CALCIUM 8.3 mg/dL (8.5-10.3); CREATININE 0.7 mg/dL (0.4-1.0); TOTAL PROTEIN 7.3 g/dL (6.7-8.2)
[2019-08-21 12:16] LABS: HB2 TOTAL 14.6 g/dL; HEMOGLOBIN A1C 0.57 g/dL; HEMOGLOBIN A1C % 5.7 % (4.6-6.2)
== END 2019-08-21 23:59 | disposition home or self-care (01) ==
LOC: LAB.N 10:29
PROVIDERS: ATTEND Family Medicine
DX: Z01.810 Encounter for preprocedural cardiovascular examination (principal); M17.0 Bilateral primary osteoarthritis of knee
CPT/HCPCS: 36415; 80053; 81001; 81003; 83036; 85025; 87086

== ENCOUNTER 2020-08-07 08:00 | Outpatient (CLI) | payer MEDICARE ==
[2020-08-07 17:53] LABS: BASOPHILS % (AUTO) 0.7 %; HGB - HEMOGLOBIN 14.6 g/dL (12.0-16.0); LYMPHOCYTES # (AUTO) 0.6 10^3/uL (1.5-3.5); LYMPHOCYTES % (AUTO) 13.4 %; MEAN CORPUSCULAR HEMOGLOBIN 27.6 pg (27.0-31.0); MEAN CORPUSCULAR HGB CONC 31.3 g/dL (32.0-36.0); MEAN CORPUSCULAR VOLUME 88.1 fL (81.0-99.0); MEAN PLATELET VOLUME 11.9 fL (7.9-10.8); MONOCYTES # (AUTO) 0.4 10^3/uL (0.0-1.0); NEUTROPHILS # (AUTO) 3.1 10^3/uL (1.5-6.6); NEUTROPHILS % (AUTO) 75.7 %; PLT - PLATELET COUNT 170 10^3/uL (130-450); RED BLOOD COUNT 5.29 10^6/uL (4.20-5.40); WHITE BLOOD COUNT 4.1 x10^3/uL (4.8-10.8)
[2020-08-07 18:15] LABS: ALBUMIN 3.9 g/dL (3.2-5.5); ALBUMIN/GLOBULIN RATIO 1.1 (1.0-2.2); ALKALINE PHOSPHATASE 56 IU/L (42-121); ALT ALANINE AMINOTRANSFERASE 18 IU/L (10-60); AST ASPARTATE AMINOTRANSFERASE 22 IU/L (10-42); BILIRUBIN,TOTAL 1.4 mg/dL (0.2-1.0); BUN - BLOOD UREA NITROGEN 14 mg/dL (6-20); CALCIUM 9.6 mg/dL (8.5-10.3); CARBON DIOXIDE - CO2 29 mmol/L (21-32); CHLORIDE 101 mmol/L (101-111); CHOL/HDL RATIO 4.2 (<4.4); CHOLESTEROL 216 mg/dL; CREATININE 0.7 mg/dL (0.4-1.0); GLUCOSE 108 mg/dL (70-100); HDL CHOLESTEROL 51 mg/dL; LDL CHOLESTEROL,CALCULATED 131 mg/dL; LDL/HDL RATIO 2.6 (<4.4); SODIUM 140 mmol/L (135-145); TOTAL PROTEIN 7.6 g/dL (6.7-8.2); URIC ACID 5.7 mg/dL (2.6-7.2); VLDL CHOLESTEROL 34 mg/dL
[2020-08-07 20:51] LABS: HEMOGLOBIN A1c% 5.3 % (4.27-6.07)
== END 2020-08-07 23:59 | disposition home or self-care (01) ==
LOC: LAB.WCP 08:00
PROVIDERS: ATTEND Family Medicine
DX: E03.9 Hypothyroidism, unspecified (principal); R71.8 Other abnormality of red blood cells; E78.5 Hyperlipidemia, unspecified; I10 Essential (primary) hypertension; M10.9 Gout, unspecified; R73.9 Hyperglycemia, unspecified
CPT/HCPCS: 36415; 80053; 80061; 83036; 83721; 84443; 84550; 85025

== ENCOUNTER 2020-09-15 08:02 | Outpatient (CLI) | payer MEDICARE ==
--- NOTE | 2020-09-15 10:03 | XRAY Report ---
PROCEDURE: Knee 4 View LT INDICATIONS: OSTEOARTHRITIS, L KNEE, SEVERE TECHNIQUE: 4 views of the left knee(s) were acquired. COMPARISON: None. FINDINGS: Bones: No fractures or dislocations. Moderate to severe tricompartmental osteoarthritis is seen most prominent in medial femoral tibial compartment with joint space narrowing, subchondral sclerosis and marginal osteophyte formation. No suspicious bony lesions. Soft tissues: No significant joint effusion. Chondrocalcinosis in medial and lateral femoral tibial c ompartments are seen. IMPRESSION: Moderate to severe tricompartmental osteoarthritis most prominent in medial femoral tibi al compartment. Chondrocalcinosis. No significant joint effusion. Reviewed by: Parminder Beltre MD on 09/15/2020 10:01 AM PST Approved by: Parminder Beltre MD on 09/15/2020 10:01 AM PST Station ID: [id number]
== END 2020-09-15 23:59 | disposition home or self-care (01) ==
LOC: DI.N 08:02
PROVIDERS: ATTEND Orthopaedic Surgery
DX: M17.12 Unilateral primary osteoarthritis, left knee (principal); M11.262 Other chondrocalcinosis, left knee

== ENCOUNTER 2020-10-03 11:03 | Outpatient (CLI) | payer MEDICARE | END 2020-10-03 23:59 | disposition home or self-care (01) | LOC: LAB.R 11:03 | PROVIDERS: ATTEND Orthopaedic Surgery | DX: Z01.818 Encounter for other preprocedural examination (principal); Z20.822 Contact with and (suspected) exposure to COVID-19 ==

== ENCOUNTER 2020-10-08 07:22 | Day surgery (SDC) | payer MEDICARE ==
[~2020-10-08 07:22] MED LIST changes: +ACETAMINOPHEN 1,000 MG/100 ML 100 ML IV ONE; +CELECOXIB 100 MG CAPSULE PO ONE; +DEXAMETHASONE 10 MG/ML VIAL ONE; -PHENYLEPHRINE 2.5% OPHTH 2 ML DROPS ONE; +VANCOMYCIN 1 GM VIAL ONE; +ceFAZolin 2 GM/50 ML 2 GM/50 ML BAG IV ONE
[2020-10-08] MEDS ORDERED: LACTATED RINGERS 1,000 ML IV ONE ×3 (08:00→13:33)
[2020-10-08] MEDS ORDERED: BUPIVACAINE 0.5% PF 10 ML VIAL ONE (08:14)
[2020-10-08] MEDS ORDERED: ePHEDrine 50 MG/ML VIAL IVP ONE (08:14)
[2020-10-08] MEDS ORDERED: PHENYLEPHRINE 10 MG/ML VIAL ONE (08:15)
[2020-10-08] MEDS ORDERED: SODIUM CHLORIDE 0.9% 10 ML ONE ×2 (08:17→09:38)
--- NOTE | 2020-10-08 08:18 | ANESTHESIA ---
Pre-Anesthesia VS, & Labs - Diagnosis left knee osteoarthritis - Procedure left total knee osteoarthritis Vital Signs: Temp Pulse Resp BP Pulse Ox 36.5 C 67 16 131/103 H 96 10/08/20 07:32 10/08/20 07:32 10/08/20 07:32 10/08/20 07:32 10/08/20 07:32 Height: 5 ft 4 in Weight (kg): 88 kg Body Mass Index: 33.3 BMI Classification: Obese - NPO >8 hours - Is Patient ?: No - Lab Results Current Lab Results: Laboratory Tests 10/08/20 07:54: POC Whole Bld Glucose 99 Home Medications and Allergies Home Medications: Ambulatory Orders Cholecalciferol [Vitamin D3] 25 mcg PO DAILY 10/01/20 Potassium Chloride 10 meq PO DAILY 10/01/20 Levothyroxine [Synthroid] 75 mcg PO DAILY 02/09/17 Hydrochlorothiazide 12.5 mg PO DAILY 03/17/17 Cholecalciferol [Vitamin D3] 25 mcg PO DAILY 10/01/20 Potassium Chloride 10 meq PO DAILY 10/01/20 Allergies/Adverse Reactions: Allergies Allergy/AdvReac Type Severity Reaction Status Date / Time coffee (Coffea arabica) Allergy Anaphylaxis Verified 10/08/20 07:52 erythromycin base AdvReac Cramps Verified 10/08/20 07:53 [From Staticin] ethyl alcohol [From Staticin] AdvReac Cramps Verified 10/08/20 07:53 Anes History & Medical History - Anesthetic History Anesthesia Complications: reports: No previous complications - Medical History Cardiovascular: reports: None Pulmonary: reports: None Gastrointestinal: reports: None Urinary: reports: None Musculoskeletal: reports: Osteoarthritis Endocrine/Autoimmune: reports: HyPOthyroidism Skin: reports: Psoriasis Smoking Status: Never smoker History of Cancer?: No - Surgical History General: Colonoscopy Eyes Ears Nose Throat (EENT): Cataracts Gynecologic: Hysterectomy Orthopedic: Arthroscopic surgery Exam General: Alert Dental: WNL Mouth Opening: Greater than 4 Fingerbreadths Neck Mobility: Normal Mallampati classification: II Thyromental Distance: greater than 6 cm Respiratory: Lungs clear Cardiovascular: Regular rate Mental/Cognitive Status: Alert/Oriented X3 Plan Anesthesia Type: General, Adductor Block Consent for Procedure(s) Verified and Reviewed: Yes Code Status: Attempt Resuscitation ASA classification: 2-Mild systemic disease Is this case an emergency?: No
[2020-10-08] MEDS ORDERED: VANCOMYCIN 1 GM VIAL ONE (08:45)
[2020-10-08] MEDS ORDERED: TRANEXAMIC ACID 1,000 MG/10 ML VIAL ONE ×2 (09:09→11:39)
[2020-10-08] MEDS ORDERED: ROPIVACAINE 0.5% PF 20 ML AMPULE ONE (09:35)
[2020-10-08] MEDS ORDERED: LIDOCAINE 2%-EPI 1:100000 20 ML MDV SUBQ ONE ×2 (11:54)
[2020-10-08] MEDS ORDERED: BUPIVACAINE 0.5% PF 30 ML VIAL INFIL ONE ×2 (11:54→12:00)
[2020-10-08] MEDS ORDERED: LIDOCAINE 2%-EPI 1:100000 20 ML MDV ONE (11:59)
[2020-10-08] MEDS ORDERED: BUPIVACAINE 0.5% PF 30 ML VIAL ONE (11:59)
--- NOTE | 2020-10-08 12:06 | OPERATIVE REPORT ---
Operative Report - General Procedure Date: 10/08/20 Planned Procedure: Left total knee arthroplasty Pre-Op Diagnosis: Osteoarthritis left knee Procedure Performed: Left total knee arthroplasty using [facility] total knee system: Journey 2 c ruciate retaining #6 femoral component, #4 tibial baseplate with 9 mm deep dish articular insert, 26 mm biconvex patellar component Post Op Diagnosis: Same as preoperative diagnosis - Procedure Note Primary Surgeon: Bk Maxwell MD Secondary Surgeon: Yovani CARDENAS Anesthesia Provider: Delvis Duarte CRNA Anesthesia Technique: Spinal Estimated Blood Loss (mL): 300 Indications: This is a 79-year-old with advanced osteoarthritis of the left knee. She is tried nonoperative treatment as is been documented. She has had a previous right total knee arthroplasty with favorable outcome and has had progressive pain since having that procedure done over a year ago. She had x-rays that show complete loss of articular cartilage to all 3 compartments of the left knee suggestive of advanced osteoarthritis of left knee. On exam she had mild effusion, joint line tenderness, 10 degree flexion contracture, crepitus and good stability. Her flexion was approximately 110 degrees Findings: She had complete loss of articular cartilage to all 3 compartments with eburnated bone surface especially medially. She had large osteophytes about the patella and tibiofemoral joint. She had loose bodies in the posterior compartment of the knee joint. Complications: None noted - Other Other Information/Narrative: The patient was brought to the operating room and was placed in a supine position. She was given a adductor canal block by anesthesia. A pneumatic tourniquet was applied to the proximal left thigh over cast padding. This was a conical shaped [place] thigh tourniquet that was sterile. A bump was placed on the operating room table to facilitate knee flexion of the left knee during surgery. A timeout procedure was performed by the entire operating room team and all were in agreement. A midline longitudinal incision was made with the knee in flexion. A medial parapatellar arthrotomy was made. The anterior horn of medial and lateral menisci were released and part of patellar fat pad was excised. The knee was flexed and the patella was dislocated laterally. A drill hole was made in the intramedullary notch with a 9.5 mm drill. Osteophytes about the proximal tibia and femur had been removed with a rondure. The distal femoral cutting guide was aligned parallel to the posterior condyles. The intramedullary jason and guide was advanced and the distal femoral guide was stabilized with half pins. The distal 5 degrees valgus cut was made through the distal femoral guide; plus 2 mm resection since she has a flexion contracture. Next the extra medullary tibial guide was assembled and applied and aligned to the mechanical axis in both sagittal and coronal planes. Tibial referencing was done to allow 3 mm of bone from the most affected side . The tibial guide was stabilized with half pins. Retractors were placed medially and laterally to protect the collateral ligaments and a retractor was placed directly against the posterior bone to sublux the tibia anteriorly. An oscillating saw was used to make the tibial proximal cut. The tibial block was removed as a single piece and the menisci were removed as well. The extension gap was assessed with a extension block spacer using a 10 mm spacer and this was found to fit well as well as the 9 mm spacer block with the knee in 90 degrees of flexion. Next the femoral positioning guide was applied and aligned to the epicondylar axis and [place] line. This was secured in place with approximately 3 degrees of external rotation. The size of the femur at the anterior lateral trochlea was a #6. Drill holes were made in the 5 and 1 #4 cutting block was inserted and secured. The 5 cuts were made to the captured block using oscillating saw. The flexion gap was assessed with the 10 mm spacer and was found to fit well. The patella was then prepared. A biconvex patellar reamer was used. The tibial trial #4 was then applied to the tibia and aligned to the mechanical axis. The punch fin was utilized. Trial reduction was performed with the femoral and tibial components in place. Notch resection was then through the trial component. Pulsatile lavage was performed. A tourniquet was applied during the cementing process. The components were inserted sequentially: Tibia, femur and lastly patellar component. Excess cement was removed and the knee was placed in extension during the hardening. Dilute Betadine irrigation was performed. The knee had full range of motion, good patellar tracking. There was good stability of the knee in full extension mid flexion and 90 degrees of flexion. There was good alignment of the left knee. The tourniquet had been deflated and had been in place for 16 minutes. Hemostasis was achieved with electrocautery. The deep closure was performed with #2 Ethibond proximal and distal to the patella with the knee in 40 degrees of flexion. O V-Loc suture was then used to close the arthrotomy incision. 2-0 Vicryl was used to close the subcutaneous tissue. 3-0 Monocryl was used to do a subcuticular skin closure. Dermabond was applied to the skin incision. After the Dermabond had hardened, a silver impregnated dressing was applied. She tolerated the procedure well and received 2 g of Ancef intravenously and 2 g of tranexamic acidVancomycin 2 g powder was placed deep and superficial to arthrotomy closure. Dilute sterile Betadine irrigation was placed about the components after cementing the components.
[2020-10-08] MEDS ORDERED: MORPHINE 2 MG/ML CARPUJECT IVP PRN ×2 (12:30→12:43)
[2020-10-08] MEDS ORDERED: ONDANSETRON 4 MG/2 ML VIAL IVP PRN ×2 (12:30→12:43)
[2020-10-08] MEDS ORDERED: SODIUM CHLORIDE FLUSH 0.9% 10 ML SYRINGE IVP PRN (12:30)
[2020-10-08] MEDS ORDERED: oxyCODONE 5 MG TABLET PO PRN (12:30)
[2020-10-08] MEDS ORDERED: DOCUSATE SODIUM 100 MG CAPSULE PO PRN (12:30)
[2020-10-08] MEDS ORDERED: ATROPINE ABBOJECT 1 MG/10 ML SYRINGE IVP PRN (12:43)
[2020-10-08] MEDS ORDERED: ePHEDrine 50 MG/ML VIAL IVP PRN (12:43)
[2020-10-08] MEDS ORDERED: METOCLOPRAMIDE 10 MG/2 ML VIAL IVP PRN (12:43)
[2020-10-08] MEDS ORDERED: HYDROmorphone 0.5 MG/0.5 ML SYRINGE IVP PRN (12:43)
[2020-10-08] MEDS ORDERED: NALOXONE 0.4 MG/ML VIAL IVP PRN (12:43)
[2020-10-08] MEDS ORDERED: fentaNYL 100 MCG/2 ML VIAL IVP PRN (12:43)
[2020-10-08] MEDS ORDERED: LACTATED RINGERS 1,000 ML IV SCH (13:00)
--- NOTE | 2020-10-08 13:13 | XRAY Report ---
PROCEDURE: Knee 3 View LT INDICATIONS: post op TECHNIQUE: 2 views of the left knee(s) were acquired. COMPARISON: 09/15/2020 FINDINGS: Bones: Interval total left knee arthroplasty. Components appear in expected position. The joint is co ngruent.. No suspicious bony lesions. Soft tissues: There are expected postsurgical soft tissue changes. No suspicious soft tissue calcific ations. IMPRESSION: Expected postoperative appearance of left total knee arthroplasty. Reviewed by: Halie Rodriguez MD on 10/08/2020 12:12 PM [place] Approved by: Halie Rodriguez MD on 10/08/2020 12:12 PM AKST Station ID: [id number]
--- NOTE | 2020-10-08 14:09 | CONSULTATION NOTE ---
Referring Provider Name of Referring Provider:: Dr. Maxwell Consult Date: 10/08/20 Chief Complaint - Chief Complaint Chief Complaint: Left knee replacement History of Present Illness - Admitted From Admitted From:: Home - History Obtained From Records Reviewed: Yes History obtained from: Patient, Orthopedic Surgeon, EMR - History of Present Illness HPI Comment/Other: This is a pleasant 79-year-old female with a past medical history significant for hypothyroidism and hypertension who presents today for an elective left total knee arthroplasty. This was performed by Dr. Maxwell of the orthopedic surgery service today. Medicine was consulted postoperatively to help assist with her medical problems. The patient currently reports feeling well. She denies any pain as she had a spinal for the procedure. Currently has no sensation in her lower extremities. She had her right knee replaced about 1 year ago and she states she did well postoperatively. Her pain was controlled with just Tylenol and Aleve alone. She currently denies any chest pain, dyspnea, nausea, abdominal pain. 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 Living arrangement: At home Social History Notes: She is a non-smoker and does not drink alcohol. Meds/Allgy - Home Medications Home Medications: Ambulatory Orders Medication Instructions Recorded Confirmed Levothyroxine [Synthroid] 75 mcg PO DAILY 02/09/17 10/08/20 Hydrochlorothiazide 12.5 mg PO DAILY 03/17/17 10/08/20 Cholecalciferol [Vitamin D3] 25 mcg PO DAILY 10/01/20 10/08/20 Potassium Chloride 10 meq PO DAILY 10/01/20 10/08/20 - Allergies Allergies/Adverse Reactions: Allergies Allergy/AdvReac Type Severity Reaction Status Date / Time coffee (Coffea arabica) Allergy Anaphylaxis Verified 10/08/20 07:52 adhesive AdvReac Rash Verified 10/08/20 13:24 [id number] Reductase AdvReac Cramps Verified 10/08/20 13:24 Inhibitor Review of Systems - Cardiovascular Cariovascular: denies: Chest pain, Edema, Exertional dyspnea, Decr. exercise tolerance - Respiratory Respiratory: denies: Cough, SOB at rest, SOB with exertion - Gastrointestinal Gastrointestinal: denies: Abdominal pain, Nausea, Vomiting - Genitourinary Genitourinary: denies: Dysuria, Frequency - Musculoskeletal Musculoskeletal: denies: Joint pain - Integumentary Integumentary: reports: Rash - All Other Systems All Other Systems: reports: Reviewed and negative Exam - Vital Signs Reviewed Vital Signs: Yes Vital Signs: Vital Signs x48h Temp Pulse Resp BP Pulse Ox 10/08/20 13:30 36.7 C 73 14 115/76 100 10/08/20 13:16 69 11 L 127/98 H 96 10/08/20 13:10 37 C 65 13 120/78 99 10/08/20 13:05 67 16 119/79 98 10/08/20 12:59 75 19 131/79 H 97 10/08/20 12:54 72 19 103/76 97 10/08/20 12:49 69 16 117/70 98 10/08/20 12:45 36.6 C 73 15 125/69 99 10/08/20 12:40 70 14 106/79 99 10/08/20 07:32 36.5 C 67 16 131/103 H 96 - Physical Exam General Appearance: positive: No acute distress, Alert Eyes Bilateral: positive: Normal inspection, Conjunctivae nml ENT: positive: ENT inspection nml Neck: positive: Nml inspection Respiratory: positive: No respiratory distress. negative: Wheezes, Rales Cardiovascular: positive: Regular rate & rhythm, No murmur. negative: Tachycardia, Systolic murmur Skin: positive: Other (Multiple psoriatic lesions located over the lower back, right hip and the extensor surfaces of her upper extremity.) Extremities: positive: No pedal edema, Other (Dressing is in place over the left knee.) Neurologic/Psychiatric: positive: Other (She has decreased sensation due to the spinal in her lower extremities.). negative: Disoriented to person, Disoriented to place Conclusion/Plan - Diagnosis Diagnosis: 1) Hypertension. 2 Hypothyroidism. 3) Psoriais. 4) Status post left total knee arthroplasty - Plan Plan: We will resume her home hydrochlorothiazide and Synthroid tomorrow morning. Continue with current pain regimen. I suspect she should be able to be discharged home tomorrow if okay with orthopedic surgery.
[2020-10-08] MEDS: NS W/20 MEQ KCL 1,000 ML IV SCH (16:27)
[2020-10-08] MEDS: ceFAZolin 2 GM/50 ML 2 GM/50 ML BAG IV SCH ×2 (16:27→21:45)
[2020-10-08] MEDS: SODIUM CHLORIDE FLUSH 0.9% 10 ML SYRINGE IVP SCH (16:28)
--- NOTE | 2020-10-08 16:57 | ANESTHESIA POST OP EVALUATION ---
Anesthesia Post Eval - Post Anesthesia Eval Vitals: Last Vital Signs Temp 36.5 C 10/08/20 15:00 Pulse 75 10/08/20 15:30 Resp 18 10/08/20 15:00 BP 118/72 10/08/20 15:30 Pulse Ox 95 10/08/20 15:00 CV Function Including HR & BP: positive: Stable Pain Control: positive: Satisfactory Nausea & Vomiting: positive: Negative Mental Status: positive: Patient Participates Respiratory Status: Airway Patent Hydration Status: Satisfactory Anesthesia Complications: positive: None
[2020-10-08] MEDS: ACETAMINOPHEN 500 MG TABLET PO SCH (18:20)
[2020-10-08] MEDS ORDERED: CELECOXIB 100 MG CAPSULE PO SCH (21:00)
[2020-10-08] MEDS ORDERED: ASPIRIN EC 81 MG TABLET PO SCH (21:00)
[2020-10-08] MEDS: ethyl alcohoL 62% SWAB AMPULE NAS SCH (21:45)
[2020-10-09] MEDS: CELECOXIB 100 MG CAPSULE PO SCH ×2 (00:14→08:01)
[2020-10-09] MEDS: ASPIRIN EC 81 MG TABLET PO SCH ×2 (00:15→08:00)
[2020-10-09] MEDS: ACETAMINOPHEN 500 MG TABLET PO SCH ×3 (00:15→11:46)
[2020-10-09] MEDS: SODIUM CHLORIDE FLUSH 0.9% 10 ML SYRINGE IVP SCH ×2 (02:13→08:03)
[2020-10-09] MEDS: NS W/20 MEQ KCL 1,000 ML IV SCH ×2 (03:39→12:14)
[2020-10-09 05:37] LABS: BASOPHILS % (AUTO) 0.1 %; EOSINOPHILS % (AUTO) 2.1 %; HGB - HEMOGLOBIN 10.6 g/dL (12.0-16.0); MEAN CORPUSCULAR HEMOGLOBIN 28.5 pg (27.0-31.0); MEAN CORPUSCULAR HGB CONC 32.8 g/dL (32.0-36.0); MEAN CORPUSCULAR VOLUME 86.8 fL (81.0-99.0); MONOCYTES % (AUTO) 8.5 %; NEUTROPHILS % (AUTO) 85.1 %; PLT - PLATELET COUNT 127 10^3/uL (130-450); RED BLOOD COUNT 3.72 10^6/uL (4.20-5.40); RED CELL DISTRIBUTION WIDTH 14.1 % (12.0-15.0); WHITE BLOOD COUNT 9.5 x10^3/uL (4.8-10.8)
[2020-10-09 05:50] LABS: ABNORMAL LYMPHS % (MANUAL) 0 %
[2020-10-09 06:27] LABS: BAND NEUTROPHILS % (MANUAL) 18 %; DIFFERENTIAL COMMENT MANUAL DIFFERENTIAL; LYMPHOCYTES # (MANUAL) 0.2 10^3/uL (1.5-3.5); LYMPHOCYTES % (MANUAL) 2 %; METAMYELOCYTES % (MANUAL) 1 %; MONOCYTES # (MANUAL) 0.4 10^3/uL (0.0-1.0); MYELOCYTES % (MANUAL) 1 %; PLATELET ESTIMATE, MANUAL NORMAL (130-450,000) (NORMAL); RBC MORPHOLOGY (MULTIPLE) NORMAL APPEARANCE (NORMAL)
--- NOTE | 2020-10-09 08:00 | PROVIDER PROGRESS NOTE ---
Subjective - General Procedure Date: 10/08/20 Post Op Days: 1 - Review of Systems Wound/Incisions: positive: Dressing dry and intact General: negative: Fever, Chills Pulmonary: negative: Shortness of breath Cardiovascular: negative: Chest pain Gastrointestinal: positive: Nausea Musculoskeletal: positive: Joint pain (Patient reports achiness left hip) All Other Systems: positive: Reviewed and negative Objective - Patient Data Vital Signs: Vital Signs x48h Temp Pulse Resp BP BP Pulse Ox 10/09/20 05:15 36.5 C 86 18 122/48 L 94 10/09/20 00:26 36.6 C 79 18 114/62 96 Weight: Weight 10/07/20 10/08/20 10/09/20 23:59 23:59 23:59 Weight (kg) 88 kg Intake & Output: Intake and Output Totals x24h 10/07/20 10/08/20 10/09/20 23:59 23:59 23:59 Intake Total 965 1458.333 Output Total 1200 Balance -235 1458.333 - Lab Results Lab Results: 10/09/20 05:09 Other Lab Results: Lab Results x24hrs 10/09/20 10/08/20 Range/Units 05:09 07:54 WBC 9.5 (4.8-10.8) x10^3/uL RBC 3.72 L (4.20-5.40) 10^6/uL Hgb 10.6 L (12.0-16.0) g/dL Hct 32.3 L (37.0-47.0) % MCV 86.8 (81.0-99.0) fL MCH 28.5 (27.0-31.0) pg MCHC 32.8 (32.0-36.0) g/dL RDW 14.1 (12.0-15.0) % Plt Count 127 L (130-450) 10^3/uL MPV 11.0 H (7.9-10.8) fL Neut # (Auto) Not Reportable Lymph # (Auto) Not Reportable [place] # (Auto) Not Reportable Eos # (Auto) Not Reportable Baso # (Auto) Not Reportable Absolute Nucleated RBC Not Reportable Total Counted 100 Band Neuts % (Manual) 18 H (0 - 10) % Abnorm Lymph % (Manual) 0 % Metamyelocytes % 1 H ( - 0) % Myelocytes % 1 H ( - 0) % Nucleated RBC % Not Reportable Neutrophils # (Manual) 8.7 H (1.5-6.6) 10^3/uL Lymphocytes # (Manual) 0.2 L (1.5-3.5) 10^3/uL Monocytes # (Manual) 0.4 (0.0-1.0) 10^3/uL Eosinophils # (Manual) 0.0 (0-0.7) 10^3/uL Basophils # (Manual) 0.0 (0-0.1) 10^3/uL Differential Comment MANUAL DIFFERENTIAL Platelet Estimate NORMAL (130-450,000) (NORMAL) RBC Morph Micro Appear NORMAL APPEARANCE (NORMAL) POC Whole Bld Glucose 99 (70 - 100) mg/dL - Imaging Results Radiology Imaging: positive: EMP read indepedently - Current Medications Current Medications: Current Medications Generic Name Dose Route Start Last Admin Trade Name Freq PRN Reason Stop Dose Admin Acetaminophen 1,000 mg 10/08/20 18:00 10/09/20 05:35 Acetaminophen 500 Mg Tablet PO 1,000 mg Q6HR RASHI Administration Alcohol 1 amp 10/08/20 21:00 10/08/20 21:45 Ethyl Alcohol 62% Swab Ampule SIVA 1 amp BID RASHI Administration Aspirin 81 mg 10/08/20 23:00 10/09/20 00:15 Aspirin Ec 81 Mg Tablet PO 81 mg BID RASHI Administration Celecoxib 200 mg 10/08/20 23:00 10/09/20 00:14 Celecoxib 100 Mg Capsule PO 200 mg BID RASHI Administration Potassium Chloride/Sodium Chloride 1,000 mls @ 100 mls/hr 10/08/20 15:00 10/09/20 05:14 Normal Saline 0.9% W/20 Meq Kcl IV 100 mls/hr .Q10H RASHI Infusion Sodium Chloride 10 ml 10/08/20 17:00 10/09/20 02:13 Sodium Chloride Flush 0.9% 10 Ml Syringe IVP Not Given 0100,0900,1700 [facility] - Physical Exam Wound/Incisions: positive: Dressing dry and intact Neurologic/Psychiatric: positive: Oriented x3, Motor nml (Patient reports no focal numbness or tingling patient can move foot and toes and left operative leg), Sensation nml Impression/Plan - Problem List Problem List: Patient is 79-year-old woman who is postop day 1 after left TKA. No signs or symptoms of infection.Patient is able to move operative extremityPatient is pain is well controlled, patient is hemodynamically stable. Patient's been able to complete her PT postop day 0. Patient is able to get to the commode. Patient did have some nausea that has passed. If patient meets PT and OT goals today And remained stable patient can be discharged from an orthopedic standpoint. Patient is comanaged with hospitalist.
[2020-10-09] MEDS: ethyl alcohoL 62% SWAB AMPULE NAS SCH (08:03)
[2020-10-09] MEDS ORDERED: hydroCHLOROthiazide 12.5 MG CAPSULE PO SCH (09:00)
[2020-10-09] MEDS ORDERED: LEVOTHYROXINE 75 MCG TABLET PO SCH (09:00)
[2020-10-09] MEDS ORDERED: POTASSIUM CHLORIDE 10 MEQ CAPSULE PO SCH (09:00)
[2020-10-09] MEDS ORDERED: CHOLECALCIFEROL 25 MCG TABLET PO SCH (09:00)
--- NOTE | 2020-10-09 11:48 | PROVIDER PROGRESS NOTE ---
Subjective - Prog Note Date Prog Note Date: 10/09/20 - Subjective Subjective: She reports feeling well. Has no pain in her left knee. Has slight pain superior to the left knee where the femoral block was placed. She been able to ambulate with physical therapy. Current Medications - Current Medications Current Medications: Active Medications Acetaminophen (Acetaminophen 500 Mg Tablet) 1,000 mg PO Q6HR [facility] Last Admin: 10/09/20 11:46 Dose: 1,000 mg Documented by: Alcohol (Ethyl Alcohol 62% Swab Ampule) 1 amp SIVA BID [facility] Last Admin: 10/09/20 08:03 Dose: 1 amp Documented by: Aspirin (Aspirin Ec 81 Mg Tablet) 81 mg PO BID [facility] Last Admin: 10/09/20 08:00 Dose: 81 mg Documented by: Celecoxib (Celecoxib 100 Mg Capsule) 200 mg PO BID [facility] Last Admin: 10/09/20 08:01 Dose: 200 mg Documented by: Cholecalciferol (Cholecalciferol 25 Mcg Tablet) 25 mcg PO DAILY [facility] Last Admin: 10/09/20 08:00 Dose: 25 mcg Documented by: Docusate Sodium (Docusate Sodium 100 Mg Capsule) 100 mg PO BID PRN PRN Reason: Constipation Hydrochlorothiazide (Hydrochlorothiazide 12.5 Mg Capsule) 12.5 mg PO DAILY [facility] Last Admin: 10/09/20 08:00 Dose: 12.5 mg Documented by: Potassium Chloride/Sodium Chloride (Normal Saline 0.9% W/20 Meq Kcl) 1,000 mls @ 100 mls/hr IV .Q10H [facility] Last Infusion: 10/09/20 05:14 Dose: 100 mls/hr Documented by: Levothyroxine Sodium (Levothyroxine 75 Mcg Tablet) 75 mcg PO DAILY [facility] Last Admin: 10/09/20 08:01 Dose: 75 mcg Documented by: Morphine Sulfate (Morphine 2 Mg/Ml Carpuject) 2 mg IVP Q2HR PRN PRN Reason: PAIN >8 Ondansetron HCl (Ondansetron 4 Mg/2 Ml Vial) 4 mg IVP Q6HR PRN PRN Reason: Nausea / Vomiting Oxycodone HCl (Oxycodone 5 Mg Tablet) 5 mg PO Q6HR PRN PRN Reason: PAIN Potassium Chloride (Potassium Chloride 10 Meq Capsule) 10 meq PO DAILY [facility] Last Admin: 10/09/20 08:00 Dose: 10 meq Documented by: Sodium Chloride (Sodium Chloride Flush 0.9% 10 Ml Syringe) 10 ml IVP 0100,0900,1700 RASHI Last Admin: 10/09/20 08:03 Dose: Not Given Documented by: Sodium Chloride (Sodium Chloride Flush 0.9% 10 Ml Syringe) 10 ml IVP PRN PRN PRN Reason: NEEDED PER PROVIDER ORDERS Levothyroxine [Synthroid] 75 mcg PO QDAC 02/09/17 Hydrochlorothiazide 12.5 mg PO DAILY 03/17/17 Cholecalciferol [Vitamin D3] 25 mcg PO DAILY 10/01/20 Potassium Chloride 10 meq PO DAILY 10/01/20 Objective - Vital Signs/Intake & Output Reviewed Vital Signs: Yes Vital Signs: Vital Signs x48h Temp Pulse Resp BP BP Pulse Ox 10/09/20 11:00 124/69 10/09/20 09:00 36.5 C 71 18 115/52 L 96 10/09/20 05:15 36.5 C 86 18 122/48 L 94 Intake & Output: Intake & Output 10/06/20 10/07/20 10/08/20 10/09/20 23:59 23:59 23:59 23:59 Intake Total 965 1678.333 Output Total 1200 75 Balance -235 1603.333 - Objective General Appearance: positive: No acute distress, Alert Eyes Bilateral: positive: Normal inspection, Conjunctivae nml ENT: positive: ENT inspection nml Neck: positive: Nml inspection Respiratory: positive: No respiratory distress. negative: Wheezes, Rales Cardiovascular: positive: Regular rate & rhythm, No murmur. negative: Tachycardia Skin: positive: Warm, Dry, Other (Multiple scaly lesions noted over her back and right hip.). negative: No rash Extremities: positive: No pedal edema, Other (Dressing is in place over left knee. She does have mild tenderness superior to the left knee. No erythema or edema.) Neurologic/Psychiatric: positive: Oriented x3, Sensation nml. negative: Disoriented to person, Disoriented to place - Lab Results Fish Bones: 10/09/20 05:09 Other Labs: Lab Results x24hrs 10/09/20 Range/Units 05:09 WBC 9.5 (4.8-10.8) x10^3/uL RBC 3.72 L (4.20-5.40) 10^6/uL Hgb 10.6 L (12.0-16.0) g/dL Hct 32.3 L (37.0-47.0) % MCV 86.8 (81.0-99.0) fL MCH 28.5 (27.0-31.0) pg MCHC 32.8 (32.0-36.0) g/dL RDW 14.1 (12.0-15.0) % Plt Count 127 L (130-450) 10^3/uL MPV 11.0 H (7.9-10.8) fL Neut # (Auto) Not Reportable Lymph # (Auto) Not Reportable [place] # (Auto) Not Reportable Eos # (Auto) Not Reportable Baso # (Auto) Not Reportable Absolute Nucleated RBC Not Reportable Total Counted 100 Band Neuts % (Manual) 18 H (0 - 10) % Abnorm Lymph % (Manual) 0 % Metamyelocytes % 1 H ( - 0) % Myelocytes % 1 H ( - 0) % Nucleated RBC % Not Reportable Neutrophils # (Manual) 8.7 H (1.5-6.6) 10^3/uL Lymphocytes # (Manual) 0.2 L (1.5-3.5) 10^3/uL Monocytes # (Manual) 0.4 (0.0-1.0) 10^3/uL Eosinophils # (Manual) 0.0 (0-0.7) 10^3/uL Basophils # (Manual) 0.0 (0-0.1) 10^3/uL Differential Comment MANUAL DIFFERENTIAL Platelet Estimate NORMAL (130-450,000) (NORMAL) RBC Morph Micro Appear NORMAL APPEARANCE (NORMAL) ABX Reporting Has patient been on IV antibiotics over the past 48 hours?: No Assessment/Plan - Problem List (1) Hypertension Impression: Her blood pressures been overall stable. Her diastolic was low this morning but has since improved. She continue her home hydrochlorothiazide on discharge. (2) Hypothyroidism Impression: She can continue her home Synthroid on discharge. (3) Psoriasis Impression: Stable. She is not on any therapy for this. (4) Status post total left knee replacement Impression: She appears to be doing well postoperatively. Will defer discharge to orthopedic surgery. Of note, she does have 18% bands on her differential this morning and her white count is slightly increased compared to her baseline although there is no evidence of infection at this time. Although she has pain at the site of the femoral block, there is no evidence of cellulitis. I suspect this is likely just reactive in nature given the recent surgical intervention.
[2020-10-09 12:57] VITALS: BP 125/68
== END 2020-10-09 13:32 | disposition home or self-care (01) ==
LOC: SDS 07:22 → MS3 13:46 → SDS 10-09 13:32
PROVIDERS: ATTEND Orthopaedic Surgery
DX: M17.12 Unilateral primary osteoarthritis, left knee (principal); I10 Essential (primary) hypertension; E03.9 Hypothyroidism, unspecified; L40.9 Psoriasis, unspecified; Z96.651 Presence of right artificial knee joint; E66.9 Obesity, unspecified; Z68.33 Body mass index [BMI] 33.0-33.9, adult
CPT/HCPCS: 27447; 73562; 85025; 97161; 97165; 97530; A9270; J0131; J0690; J3370; J7120

== ENCOUNTER 2020-10-10 10:15 | Outpatient (CLI) | payer MEDICARE | END 2020-10-10 10:16 | disposition critical access hospital (66) | LOC: EMS 10:15 | PROVIDERS: ATTEND Emergency Medicine | DX: R00.0 Tachycardia, unspecified (principal); I95.9 Hypotension, unspecified | CPT/HCPCS: A0425; A0429 ==

== ENCOUNTER 2020-10-10 10:36 | Inpatient (IN) | payer MEDICARE ==
[2020-10-10] MEDS ORDERED: diltiaZEM INJ 5 MG/ML VIAL IVP STA ×2 (10:50→11:04)
--- NOTE | 2020-10-10 10:52 | ED Physician Documentation ---
History of Present Illness - Stated complaint Stated Complaint: WEAK - Chief complaint Chief Complaint: Neuro - History obtained from History obtained from: Patient, EMS - History of Present Illness Timing: Today - Additonal information Additional information: 79 y/o female 2 days post TKR has developed a feeling of "blah" this morning and is found to be in rapid afib. She has not had afib previously. She has a rate in the 170 range and appears to be tolerating it with a blood pressure just over 100 systolic. The patient reports noting her heart fast at about 730am while at rest in a chair. Review of Systems Constitutional: denies: Fever Eyes: denies: Decreased vision Ears: denies: Ear pain Nose: denies: Rhinorrhea / runny nose, Congestion Throat: denies: Sore throat Cardiac: reports: Palpitations. denies: Chest pain / pressure, Pedal edema, Calf pain Respiratory: denies: Dyspnea, Cough GI: denies: Abdominal Pain, Nausea, Vomiting : denies: Dysuria, Frequency PD PAST MEDICAL HISTORY - Past Medical History Cardiovascular: Hypertension Respiratory: None Endocrine/Autoimmune: HyPOthyroidism GI: None : None HEENT: Chronic vision loss Psych: None Musculoskeletal: Osteoarthritis Derm: Psoriasis - Past Surgical History General: Colonoscopy Ortho: Knee replacement, Arthroscopic surgery /CLARIFICATION OPERATOR: Hysterectomy HEENT: Cataracts - Present Medications Home Medications: Ambulatory Orders Medication Instructions Recorded Confirmed Levothyroxine [Synthroid] 55 mcg PO QDAC 02/09/17 10/10/20 Hydrochlorothiazide 12.5 mg PO DAILY 03/17/17 10/10/20 Cholecalciferol [Vitamin D3] 25 mcg PO DAILY 10/01/20 10/10/20 Potassium Chloride 10 meq PO DAILY 10/01/20 10/10/20 Aspirin EC [Ecotrin] 325 mg PO BID 10/10/20 10/10/20 - Allergies Allergies/Adverse Reactions: Allergies Allergy/AdvReac Type Severity Reaction Status Date / Time coffee (Coffea arabica) Allergy Anaphylaxis Verified 10/08/20 07:52 adhesive AdvReac Rash Verified 10/08/20 13:24 Jpqaudt-Xhf-Vtl Reductase AdvReac Cramps Verified 10/08/20 13:24 Inhibitor - Social History Does the pt smoke?: No Smoking Status: Never smoker - Immunizations Immunizations are current?: Yes PD ED PE NORMAL - Vitals Vital signs reviewed: Yes - General General: Alert and oriented X 3, Well developed/nourished, Other (pale appearing female preferrs eyes closed. ) - HEENT HEENT: Atraumatic, PERRL, EOMI - Neck Neck: Supple, no meningeal sign, No bony TTP - Cardiac Cardiac: No murmur, Other (tachy and irregularly irregular) - Respiratory Respiratory: No respiratory distress, Clear bilaterally - Abdomen Abdomen: Soft, Non tender - Back Back: No CVA TTP, No spinal TTP - Derm Derm: Normal color, Warm and dry, No rash - Extremities Extremities: No deformity, Other (There is bandaging to the left knee and mild expected distal swelling is present.) - Neuro Neuro: Alert and oriented X 3, staff registered nurse 2-12 intact, No motor deficit, No sensory deficit, Normal speech Eye Opening: To Voice Motor: Obeys Commands Verbal: Oriented GCS Score: 14 - Psych Psych: Normal mood, Normal affect Results - Vitals Vitals: Vital Signs - 24 hr 10/10/20 10/10/20 10/10/20 10:36 10:57 11:09 Temperature 36.6 C Heart Rate 157 H 119 H 132 H Respiratory 28 H 31 H 28 H Rate Blood Pressure 97/62 89/73 L 104/66 O2 Saturation 93 93 10/10/20 10/10/20 10/10/20 11:19 11:23 11:28 Temperature Heart Rate 92 115 H 97 Respiratory 25 H 26 H 28 H Rate Blood Pressure 88/56 L 120/68 106/63 O2 Saturation 92 94 89 L 10/10/20 10/10/20 10/10/20 11:34 12:05 12:30 Temperature Heart Rate 104 H 89 117 H Respiratory 16 20 24 Rate Blood Pressure 100/64 112/70 102/63 O2 Saturation 93 95 96 10/10/20 10/10/20 13:00 13:30 Temperature Heart Rate 76 73 Respiratory 22 23 Rate Blood Pressure 112/65 104/61 O2 Saturation 96 95 Oxygen O2 Source Nasal cannula - EKG (time done) 1042 Rate: Rate (enter#) (175) Rhythm: SVT Ischemia: ST depression (appears rate related) Compare to prior EKG: Old EKG unavailable Computer interpretation: Agree with computer 1259 Rate: Rate (enter#) (72) Rhythm: NSR Ischemia: Normal ST segments Compare to prior EKG: Changed from prior EKG (SPT earlier today the rate has decreased, the rate related strain pattern has resolved and the rhythm has changed to sinus.) Computer interpretation: Agree with computer - Labs Labs: Laboratory Tests 10/10/20 10/10/20 10/10/20 11:03 11:03 11:03 WBC 6.4 RBC 3.57 L Hgb 10.4 L Hct 31.0 L MCV 86.8 MCH 29.1 MCHC 33.5 RDW 14.6 Plt Count 91 L MPV 11.3 H Neut # (Auto) 5.4 Lymph # (Auto) 0.4 L Union # (Auto) 0.6 Eos # (Auto) 0.0 Baso # (Auto) 0.1 Absolute Nucleated RBC 0.00 Nucleated RBC % 0.0 Sodium 138 Potassium 3.2 L Chloride 104 Carbon Dioxide 21 Anion Gap 13.0 BUN 13 Creatinine 0.6 Estimated GFR (MDRD) 97 Glucose 116 H Calcium 8.1 L Magnesium Total Bilirubin 1.7 H AST 85 H ALT 86 H Alkaline Phosphatase 48 Troponin I High Sens B-Natriuretic Peptide 109 H Total Protein 6.2 L Albumin 3.0 L Globulin 3.2 Albumin/Globulin Ratio 0.9 L Lipase 23 TSH Urine Color Urine Clarity Urine pH Ur Specific Granger Urine Protein Urine Glucose (UA) Urine Ketones Urine Occult Blood Urine Nitrite Urine Bilirubin Urine Urobilinogen Ur Leukocyte Esterase Urine RBC Urine WBC Ur Squamous Epith Cells Urine Bacteria Ur Microscopic Review Urine Culture Comments 10/10/20 10/10/20 10/10/20 11:03 11:03 11:03 WBC RBC Hgb Hct MCV MCH MCHC RDW Plt Count MPV Neut # (Auto) Lymph # (Auto) Union # (Auto) Eos # (Auto) Baso # (Auto) Absolute Nucleated RBC Nucleated RBC % Sodium Potassium Chloride Carbon Dioxide Anion Gap BUN Creatinine Estimated GFR (MDRD) Glucose Calcium Magnesium 1.7 Total Bilirubin AST ALT Alkaline Phosphatase Troponin I High Sens 100.5 H* B-Natriuretic Peptide Total Protein Albumin Globulin Albumin/Globulin Ratio Lipase TSH 1.71 Urine Color Urine Clarity Urine pH Ur Specific Granger Urine Protein Urine Glucose (UA) Urine Ketones Urine Occult Blood Urine Nitrite Urine Bilirubin Urine Urobilinogen Ur Leukocyte Esterase Urine RBC Urine WBC Ur Squamous Epith Cells Urine Bacteria Ur Microscopic Review Urine Culture Comments 10/10/20 10/10/20 12:24 13:10 WBC RBC Hgb Hct MCV MCH MCHC RDW Plt Count MPV Neut # (Auto) Lymph # (Auto) Union # (Auto) Eos # (Auto) Baso # (Auto) Absolute Nucleated RBC Nucleated RBC % Sodium Potassium Chloride Carbon Dioxide Anion Gap BUN Creatinine Estimated GFR (MDRD) Glucose Calcium Magnesium Total Bilirubin AST ALT Alkaline Phosphatase Troponin I High Sens 108.3 H* B-Natriuretic Peptide Total Protein Albumin Globulin Albumin/Globulin Ratio Lipase TSH Urine Color YELLOW Urine Clarity CLEAR Urine pH 6.0 Ur Specific Granger 1.025 Urine Protein 30 H Urine Glucose (UA) NEGATIVE Urine Ketones >=80 H Urine Occult Blood NEGATIVE Urine Nitrite NEGATIVE Urine Bilirubin NEGATIVE Urine Urobilinogen 0.2 (NORMAL) Ur Leukocyte Esterase NEGATIVE Urine RBC 0-5 Urine WBC 0-3 Ur Squamous Epith Cells MOD Squamous H Urine Bacteria Rare Ur Microscopic Review INDICATED Urine Culture Comments NOT INDICATED - Rads (name of study) chest Radiology: Prelim report reviewed (Impression: Normal chest), EMP read indepedently, See rad report Procedures - IVC sono (time) 1045 Bedside IVC sono: IVC measures (cm) (1.55), Euvolemia PD MEDICAL DECISION MAKING - ED course Complexity details: reviewed old records, reviewed results, re-evaluated patient, considered differential, d/w patient ED course: 79-year-old female with a history of a recent knee replacement has developed atrial fibrillation with rapid ventricular response and she has had some improvement with the use of intravenous diltiazem she was given a dose of 20 mg followed by dose of 25 mg as well as 500 mils of saline she her rate came down to under 100 but she has not converted. She does have an elevation in her troponin and BNP consistent with a strain. She did have a heart rate of over 170 for several hours. She is found to be hypokalemic and she is administered IV and oral potassium as well as magnesium. She converts to sinus and feels much improved. Her initial trop is elevated over 100 and a second trop is obtained as well as a respiratory PCR to evaluate for respiratory illness specifically COVID-19 for respiratory isolation on admission. Dr. Conklin is consulted in the case and graciously agrees to observe the patient in the hospital. Departure - Departure Disposition: ED Place in Observation Clinical Impression: Atrial fibrillation with RVR, Hypokalemia
[2020-10-10] MEDS ORDERED: diltiaZEM INJ 5 MG/ML VIAL ONE (11:01)
[2020-10-10] MEDS ORDERED: SODIUM CHLORIDE 0.9% 500 ML IV STA (11:04)
--- NOTE | 2020-10-10 11:07 | XRAY Report ---
PROCEDURE: Chest 1 View X-Ray INDICATIONS: chest pain TECHNIQUE: One view of the chest was acquired. COMPARISON: None FINDINGS: Surgical changes and devices: None. Lungs and pleura: No pleural effusions or pneumothorax. Lungs are clear. Mediastinum: Mediastinal contours appear normal. Heart size is normal. Bones and chest wall: No suspicious bony lesions. Overlying soft tissues appear unremarkable. IMPRESSION: Normal chest. Reviewed by: Halie Rodriguez MD on 10/10/2020 10:06 AM [facility] Approved by: Halie Rodriguez MD on 10/10/2020 10:06 AM [facility] Station ID: [id number]
[2020-10-10 11:09] LABS: BASOPHILS # (AUTO) 0.1 10^3/uL (0.0-0.1); BASOPHILS % (AUTO) 0.8 %; EOSINOPHILS % (AUTO) 0.2 %; HGB - HEMOGLOBIN 10.4 g/dL (12.0-16.0); LYMPHOCYTES # (AUTO) 0.4 10^3/uL (1.5-3.5); LYMPHOCYTES % (AUTO) 5.6 %; MEAN CORPUSCULAR HEMOGLOBIN 29.1 pg (27.0-31.0); MEAN CORPUSCULAR HGB CONC 33.5 g/dL (32.0-36.0); MEAN CORPUSCULAR VOLUME 86.8 fL (81.0-99.0); MEAN PLATELET VOLUME 11.3 fL (7.9-10.8); MONOCYTES # (AUTO) 0.6 10^3/uL (0.0-1.0); MONOCYTES % (AUTO) 8.7 %; NEUTROPHILS # (AUTO) 5.4 10^3/uL (1.5-6.6); NEUTROPHILS % (AUTO) 84.4 %; PLT - PLATELET COUNT 91 10^3/uL (130-450); RED BLOOD COUNT 3.57 10^6/uL (4.20-5.40); RED CELL DISTRIBUTION WIDTH 14.6 % (12.0-15.0); WHITE BLOOD COUNT 6.4 x10^3/uL (4.8-10.8)
[2020-10-10 11:27] LABS: ALBUMIN/GLOBULIN RATIO 0.9 (1.0-2.2); BILIRUBIN,TOTAL 1.7 mg/dL (0.2-1.0); CALCIUM 8.1 mg/dL (8.5-10.3); CREATININE 0.6 mg/dL (0.4-1.0); POTASSIUM 3.2 mmol/L (3.5-5.0); TOTAL PROTEIN 6.2 g/dL (6.7-8.2)
[2020-10-10] MEDS ORDERED: POTASSIUM CHLOR 10 MEQ/100 ML 10 MEQ/100 ML BAG IV ONE (11:51)
[2020-10-10] MEDS ORDERED: POTASSIUM CHLORIDE 20 MEQ TABLET PO STA ×2 (11:52→14:15)
[2020-10-10] MEDS ORDERED: MAGNESIUM SULFATE 2 GRAM 2 GM/50 ML BAG IV ONE (11:54)
[2020-10-10 12:28] LABS: GLUCOSE, URINE (UA) NEGATIVE (NEGATIVE); KETONES,URINE (UA) >=80 mg/dL (NEGATIVE); LEUKOCYTE ESTERASE, URINE NEGATIVE (NEGATIVE); NITRITE,URINE NEGATIVE (NEGATIVE); OCCULT BLOOD,URINE NEGATIVE (NEGATIVE); PROTEIN,URINE 30 mg/dL (NEGATIVE); UROBILINOGEN,URINE 0.2 (NORMAL) E.U./dL (NORMAL)
[2020-10-10 12:42] LABS: BACTERIA,URINE Rare /HPF (None Seen); BILIRUBIN,URINE NEGATIVE (NEGATIVE); CLARITY,URINE CLEAR (CLEAR); ICTOTEST,URINE NEGATIVE; RBC,URINE 0-5 /HPF (0-5); SQUAMOUS EPITHELIAL CELL,UR MOD Squamous (<= Few); WBC,URINE 0-3 /HPF (0-5)
[2020-10-10] MEDS ORDERED: ONDANSETRON ODT 4 MG TABLET TL PRN (14:00)
[2020-10-10] MEDS ORDERED: ONDANSETRON 4 MG/2 ML VIAL IVP PRN (14:00)
[2020-10-10 14:15] LABS: B. PARAPERTUSSIS- RESP PCR PAN NOT DETECTED; B. PERTUSSIS- RESP PCR PANEL NOT DETECTED; C. PNEUMONIAE- RESP PCR PANEL NOT DETECTED; CORONAVIRUS 229E-RESP PCR NOT DETECTED; CORONAVIRUS HKU1-RESP PCR NOT DETECTED; CORONAVIRUS NL63-RESP PCR NOT DETECTED; CORONAVIRUS OC43-RESP PCR NOT DETECTED; HUMAN METAPNEUMOVIRUS NOT DETECTED; INFLUENZA A- RESP PCR PANEL NOT DETECTED; INFLUENZA B - RESP PCR PANEL NOT DETECTED; M. PNEUMONIAE- RESP PCR PANEL NOT DETECTED; PARAINFLUENZA VIRUS 1 NOT DETECTED; PARAINFLUENZA VIRUS 2 NOT DETECTED; PARAINFLUENZA VIRUS 3 NOT DETECTED; PARAINFLUENZA VIRUS 4 NOT DETECTED; RHINOVIRUS/ENTEROVIRUS NOT DETECTED; RSV- RESP PCR PANEL NOT DETECTED; SARS-CoV-2 -RESP PCR PANEL NOT DETECTED
--- NOTE | 2020-10-10 15:02 | HISTORY & PHYSICAL EXAMINATION ---
Chief Complaint - Chief Complaint Chief Complaint: Weakness History of Present Illness - Admitted From Admitted From:: Home - History Obtained From Records Reviewed: Yes History obtained from: Patient, ER Physician, EMR - History of Present Illness HPI Comment/Other: This is a pleasant 79-year-old female with a past medical history significant for hypertension, hypothyroidism, psoriasis who presents today complaining of fatigue and weakness that began this morning. She was just discharged in our facility yesterday after undergoing a left total knee replacement on 08 October. She states she felt fine yesterday evening but when she woke up this morning, she felt very weak and fatigued. She drank some water this morning and then had an episode of emesis. She felt lightheaded and dizzy. She also felt slightly diaphoretic at times. She reported no chest pain or dyspnea and denied palpitations. She sat in a recliner and elevated her legs briefly. She then checked her blood pressure as she felt it was likely low and it came back at 9 0/46. Her pulse was also noted to be in the 140s. She contacted her orthopedic surgeon who spoke with her primary care provider and it was recommended that she go to the emergency department. She denies any prior history of atrial fibrillation or heart disease. She has never had a stress test. She is normally quite active and never has chest pain or dyspnea. She is a non-smoker. She has been taking Tylenol postoperatively to help control her pain. In the emergency department, she was found to be in atrial relation with a heart rate in the 140s. She was given diltiazem and she eventually converted to a sinus rhythm. Repeat EKG showed a sinus rhythm without any ischemic changes. Her labs were significant for a platelet count in the 90s as well as mildly elevated LFTs. Her troponin was also initially elevated at 100 and repeat was 108. Her chest x-ray was unremarkable. Given her elevated troponin and new onset atrial relation, medicine was consulted to place the patient in o bservation overnight. I did discuss goals of care with the patient and she would like to be a full code. History - Past Medical History Cardiovascular: reports: Hypertension Respiratory: reports: None Endocrine/Autoimmune: reports: HyPOthyroidism GI: reports: None : reports: None HEENT: reports: Chronic vision loss Psych: reports: None Musculoskeletal: reports: Osteoarthritis Derm: reports: Psoriasis MRSA Hx?: No - Past Surgical History General: reports: Colonoscopy Ortho: reports: Knee replacement, Arthroscopic surgery /MOLDER INFLATED BALL: reports: Hysterectomy HEENT: reports: Cataracts - Family & Social History Family History Comment/Other: Her mother is alive at the age of 100 but does have dementia. Social History Notes: She is a non-smoker and does not drink alcohol. Meds/Allgy - Home Medications Home Medications: Ambulatory Orders Medication Instructions Recorded Confirmed Levothyroxine [Synthroid] 75 mcg PO QDAC 02/09/17 10/10/20 Hydrochlorothiazide 12.5 mg PO DAILY 03/17/17 10/10/20 Cholecalciferol [Vitamin D3] 25 mcg PO DAILY 10/01/20 10/10/20 Potassium Chloride 10 meq PO DAILY 10/01/20 10/10/20 Aspirin EC [Ecotrin] 325 mg PO BID 10/10/20 10/10/20 - Allergies Allergies/Adverse Reactions: Allergies Allergy/AdvReac Type Severity Reaction Status Date / Time coffee (Coffea arabica) Allergy Anaphylaxis Verified 10/08/20 07:52 adhesive AdvReac Rash Verified 10/08/20 13:24 Jemydze-Hjl-Efs Reductase AdvReac Cramps Verified 10/08/20 13:24 Inhibitor Review of Systems - Constitutional Constitutional: reports: Fatigue, Weakness. denies: Fever, Chills - Eyes Eyes: denies: Blurred vision - Cardiovascular Cariovascular: reports: Edema, Lightheadedness. denies: Irregular heart rate, Palpitations, Chest pain, Syncope, Exertional dyspnea, Decr. exercise tolerance - Respiratory Respiratory: denies: Cough, SOB at rest, SOB with exertion - Gastrointestinal Gastrointestinal: denies: Abdominal pain, Nausea, Vomiting - Genitourinary Genitourinary: denies: Dysuria, Frequency - Musculoskeletal Musculoskeletal: reports: Limited range of motion, Joint swelling - Integumentary Integumentary: reports: Rash - Neurological Neurological: reports: General weakness, Dizziness. denies: Focal weakness, Numbness - All Other Systems All Other Systems: reports: Reviewed and negative Prior Level of Functionality: She is independent with her ADL's. Exam - Vital Signs Reviewed Vital Signs: Yes Vital Signs: Vital Signs x48h Temp Pulse Resp BP Pulse Ox 10/10/20 14:30 37.0 C 73 19 130/114 H 97 02/19/21 14:00 73 24 113/60 94 10/10/20 13:30 73 23 104/61 95 10/10/20 13:00 76 22 112/65 96 10/10/20 12:30 117 H 24 102/63 96 10/10/20 12:05 89 20 112/70 95 10/10/20 11:34 104 H 16 100/64 93 10/10/20 11:28 97 28 H 106/63 89 L 10/10/20 11:23 115 H 26 H 120/68 94 10/10/20 11:19 92 25 H 88/56 L 92 10/10/20 11:09 132 H 28 H 104/66 93 10/10/20 10:57 119 H 31 H 89/73 L 93 10/10/20 10:36 36.6 C 157 H 28 H 97/62 - Physical Exam General Appearance: positive: No acute distress, Alert Eyes Bilateral: positive: Normal inspection, Conjunctivae nml ENT: positive: ENT inspection nml Neck: positive: Nml inspection Respiratory: positive: No respiratory distress. negative: Wheezes, Rales Cardiovascular: positive: Regular rate & rhythm, No murmur. negative: Tachycardia Abdomen: positive: Non-tender, No distention. negative: Tenderness Skin: positive: Warm, Dry Extremities: positive: Pedal edema (+1 pitting edema in left lower extremity.), Other (Dressing in place over left knee.) Neurologic/Psychiatric: positive: Oriented x3, Motor nml Conclusion/Plan - Problem List (1) Paroxysmal atrial fibrillation with rapid ventricular response Conclusion/Plan: She presented with atrial fibrillation with rapid ventricular response and is now converted to sinus rhythm after receiving diltiazem in the emergency department. Her [id number] score is 4. Her EKG does not suggest ischemia although troponin is elevated at 100 but flat. We did discuss anticoagulation and AV iftikhar blocking agents. Given this is her first episode and that it was brief, she like to hold off on AV iftikhar blocking agents or anticoagulation for the time being. We did discuss that she could consider an outpatient Zio patch to evaluate for further episodes of atrial fibrillation. At this time we will continue to monitor her on telemetry. (2) Elevated troponin Conclusion/Plan: Suspect this is likely demand ischemia due to the atrial fibrillation. Her EKG does not suggest ischemia and she has no chest pain. Her troponin is elevated at 108 but this is flat compared to prior reading of 100. She is already on aspirin for DVT prophylaxis given her recent left total knee arthroplasty. We will keep her on this and obtain an echocardiogram today. Unfortunately, we do not have stress test available over the weekend but I have recommended an outpa tient stress test on discharge. (3) Thrombocytopenia Conclusion/Plan: Her platelet count is decreased 91 and it was 127 yesterday. Her baseline is approximately 130s to 140s. The cause of this is not clear at the moment. There does not appear to be a source of infection that would suggest sepsis. She did not receive the heparin during her prior hospitalization. There have been no changes to her medications. At this time, we will continue aspirin 81 mg twice a day. We will recheck a CBC in the morning. If her platelet count continues to decrease then we will need to consider the discontinuation of aspirin. (4) Status post total left knee replacement Conclusion/Plan: She is postop day 2 total left knee arthroplasty. She is doing well from a mobility and pain perspective. Continue with Tylenol as needed. Continue with aspirin for DVT prophylaxis. Continue with outpatient physical therapy on disch arge. (5) Elevated LFTs Conclusion/Plan: Her LFTs are mildly elevated in the 80s. The etiology is not clear at the moment although this may be due to tylenol use. She does not report a history of alcohol use. At this point in time, we will recheck her LFTs in the morning. Will consider ultrasound if they continue to increase. (6) Hypertension Conclusion/Plan: She is currently normotensive. She is on hydrochlorothiazide which we will continue. (7) Hypokalemia Conclusion/Plan: This is a chronic problem for which she is on potassium. This is likely secondary to her hydrochlorothiazide as well. We will increase her submental potassium to 20 mEq daily. (8) Hypothyroidism Conclusion/Plan: Stable. Her TSH is within normal limits. Continue her home Synthroid. (9) Psoriasis Conclusion/Plan: Stable. She is not on any therapy at home. - Lab Results Lab results reviewed: Yes Fish Bones: 10/10/20 11:03 10/10/20 11:03 - Diagnostic Imaging Results Diagnostic Imaging Results: positive: Final report reviewed - EKG Results EKG Interpreted Independently: Yes EKG Findings: Her initial EKG showed atrial fibrillation with rapid ventricular response. There were nonspecific ST segment changes. Repeat EKG after converting to sinus rhythm reveals no ST segment changes. Core Measures - Anticipated LOS I expect patient to be DC'd or transferred within 96 hours.: Yes - Issues Hospital Issues and Management Plan: 79-year-old female who is postop day 2 with left total knee replacement presents with atrial fibrillation with rapid ventricular response. She has converted to a sinus rhythm but does have an elevated troponin which is likely demand ischemia. Will place in observation for echocardiogram and trending of troponins. - DVT/VTE - Prophylaxis VTE/DVT Device ordered at admit?: Yes VTE/DVT Prophylaxis med ordered at admit?: No
[2020-10-10] MEDS: ACETAMINOPHEN 325 MG TABLET PO PRN ×2 (16:12→20:48)
[2020-10-10] MEDS: SODIUM CHLORIDE FLUSH 0.9% 10 ML SYRINGE IVP SCH (16:29)
[2020-10-10] MEDS ORDERED: LACTATED RINGERS 1,000 ML IV SCH (17:00)
[2020-10-10] MEDS ORDERED: MULTIVITAMIN TABLET PO SCH (18:00)
[2020-10-10] MEDS ORDERED: THIAMINE 100 MG TABLET PO SCH (18:00)
[2020-10-10] MEDS ORDERED: IOVERSOL 320 100 ML VIAL IVP ONE ×2 (19:33→20:46)
[2020-10-10] MEDS ORDERED: METOPROLOL TARTRATE 25 MG TABLET PO SCH (21:00)
[2020-10-10] MEDS ORDERED: ASPIRIN EC 325 MG TABLET PO SCH ×2 (21:00)
[2020-10-10] MEDS ORDERED: ASPIRIN EC 81 MG TABLET PO SCH (21:00)
--- NOTE | 2020-10-10 21:07 | CT Report ---
PROCEDURE: ANGIO CHEST W/WO INDICATIONS: New afib. Elevated troponin. Post op. CONTRAST: IV CONTRAST: Optiray 320 ml: 80 PO CONTRAST: *NO PO CONTRAST TECHNIQUE: After the administration of intravenous contrast, 2 mm thick sections acquired from the pulmonary api omero to the posterior costophrenic angles. 3-dimensional maximum intensity projection (MIP) coronal a nd sagittal reformats were then acquired through the thorax. For radiation dose reduction, the follow ing was used: automated exposure control, adjustment of mA and/or kV according to patient size. COMPARISON: None FINDINGS: Image quality: Excellent. Pulmonary arteries: Filling defects defects noted in multiple bilateral lobar, segmental and subsegme ntal pulmonary arteries compatible pulmonary emboli. Lungs and pleura: Lungs are clear of acute opacities. 1.2 cm calcified granuloma in the right lung b ase. No pleural effusions or pneumothorax. Central and peripheral airways are patent. Mediastinum: Heart size is normal, without pericardial effusion. RV/LV ratio 1.3. No mediastinal or hilar adenopathy. Thoracic aorta is normal in caliber and enhancement. Esophagus is normal in krishna courtney, without hiatal hernia. Bones and chest wall: No suspicious bony lesions. Ribs and thoracic spine appear intact throughout. Spine degenerative disc disease and facet arthropathy are noted. The thyroid is normal. No axillar y or supraclavicular adenopathy. Abdomen: Multiple large calcified gallstones. Punctate desiccation in the spleen compatible sequela prior granulomatous disease. Visualized upper abdominal solid organs: appear normal in the early carei rial phase of enhancement. IMPRESSION: 1. Bilateral pulmonary emboli involving the multiple lobar, segmental and subsegmental pulmonary carie og. 2. RV/LV ratio 1.3 suggesting right heart strain. 3. No lung consolidation or pleural effusions. 4. Cholelithiasis. Reviewed by: Vanessa Bonilla MD, PhD on 10/10/2020 9:06 PM PST Approved by: Vanessa Bonilla MD, PhD on 10/10/2020 9:06 PM PST Station ID: [id number]
[2020-10-11] MEDS: SODIUM CHLORIDE FLUSH 0.9% 10 ML SYRINGE IVP SCH ×3 (00:10→18:21)
[2020-10-11 06:06] LABS: BASOPHILS % (AUTO) 0.4 %; EOSINOPHILS # (AUTO) 0.1 10^3/uL (0.0-0.7); EOSINOPHILS % (AUTO) 1.3 %; HCT - HEMATOCRIT 27.2 % (37.0-47.0); HGB - HEMOGLOBIN 8.8 g/dL (12.0-16.0); LYMPHOCYTES # (AUTO) 0.4 10^3/uL (1.5-3.5); LYMPHOCYTES % (AUTO) 7.9 %; MEAN CORPUSCULAR HEMOGLOBIN 28.7 pg (27.0-31.0); MEAN CORPUSCULAR HGB CONC 32.4 g/dL (32.0-36.0); MEAN CORPUSCULAR VOLUME 88.6 fL (81.0-99.0); MEAN PLATELET VOLUME 11.8 fL (7.9-10.8); MONOCYTES # (AUTO) 0.4 10^3/uL (0.0-1.0); MONOCYTES % (AUTO) 9.4 %; NEUTROPHILS # (AUTO) 3.6 10^3/uL (1.5-6.6); NEUTROPHILS % (AUTO) 80.3 %; PLT - PLATELET COUNT 83 10^3/uL (130-450); RED BLOOD COUNT 3.07 10^6/uL (4.20-5.40); RED CELL DISTRIBUTION WIDTH 15.1 % (12.0-15.0); WHITE BLOOD COUNT 4.5 x10^3/uL (4.8-10.8)
[2020-10-11] MEDS: LEVOTHYROXINE 75 MCG TABLET PO SCH (06:14)
[2020-10-11] MEDS: ACETAMINOPHEN 325 MG TABLET PO PRN (06:15)
[2020-10-11 06:20] LABS: ALBUMIN 2.5 g/dL (3.2-5.5); BILIRUBIN,DIRECT 0.4 mg/dL (0.1-0.5); BILIRUBIN,TOTAL 1.4 mg/dL (0.2-1.0); CALCIUM 7.9 mg/dL (8.5-10.3); CREATININE 0.6 mg/dL (0.4-1.0); POTASSIUM 3.6 mmol/L (3.5-5.0); TOTAL PROTEIN 5.4 g/dL (6.7-8.2)
[2020-10-11] MEDS ORDERED: HEPARIN 5,000 UNIT/ML VIAL IVP ONE (08:00)
[2020-10-11] MEDS: POTASSIUM CHLORIDE 10 MEQ CAPSULE PO SCH (08:05)
[2020-10-11] MEDS: hydroCHLOROthiazide 12.5 MG CAPSULE PO SCH (08:05)
[2020-10-11] MEDS: CHOLECALCIFEROL 25 MCG TABLET PO SCH (08:05)
[2020-10-11] MEDS ORDERED: SODIUM CHLORIDE 0.9% 500 ML IV ONE (08:16)
[2020-10-11] MEDS: HEPARIN 25000UNITS/500ML (D5W) 25,000 UNIT/500 ML BAG IV SCH (08:19)
[2020-10-11 08:34] LABS: % IRON SATURATION 5 % (20-50); IRON 11 ug/dL (28-170); TOTAL IRON BINDING CAPACITY 214 ug/dL (250-450); TRANSFERRIN 153 mg/dL (192-382)
[2020-10-11 08:37] LABS: INR 1.3 (0.8-1.2)
--- NOTE | 2020-10-11 09:07 | PROVIDER PROGRESS NOTE ---
Subjective - Prog Note Date Prog Note Date: 10/11/20 - Subjective Subjective: Reports feeling well today. Denies any chest pain or dyspnea. Her left knee pain is well controlled. Current Medications - Current Medications Current Medications: Active Medications Acetaminophen (Acetaminophen 325 Mg Tablet) 650 mg PO Q4HR PRN PRN Reason: Pain 1 to 4 Last Admin: 10/11/20 06:15 Dose: 650 mg Documented by: Cholecalciferol (Cholecalciferol 25 Mcg Tablet) 25 mcg PO DAILY [facility] Last Admin: 10/11/20 08:05 Dose: 25 mcg Documented by: Heparin Sodium (Porcine) (Heparin 1,000 Unit/Ml Vial) 2,250 unit 25 unit/kg (2250 unit) IVP Q6H PRN PRN Reason: ANTI-XA < 0.2 Hydrochlorothiazide (Hydrochlorothiazide 12.5 Mg Capsule) 12.5 mg PO DAILY [facility] Last Admin: 10/11/20 08:05 Dose: 12.5 mg Documented by: Heparin Sodium/Dextrose (Heparin Sodium/Dextrose) 25,000 unit in 500 mls @ 27.1 5 mls/hr IV .[id number] [facility]; Protocol Last Admin: 10/11/20 08:19 Dose: 15 unit/kg/hr, 27.15 mls/hr Documented by: Levothyroxine Sodium (Levothyroxine 75 Mcg Tablet) 75 mcg PO QDAC [facility] Last Admin: 10/11/20 06:14 Dose: 75 mcg Documented by: Ondansetron HCl (Ondansetron Odt 4 Mg Tablet) 4 mg TL Q6HR PRN PRN Reason: Nausea / Vomiting Ondansetron HCl (Ondansetron 4 Mg/2 Ml Vial) 4 mg IVP Q6HR PRN PRN Reason: Nausea / Vomiting Potassium Chloride (Potassium Chloride 10 Meq Capsule) 10 meq PO DAILY [facility] Last Admin: 10/11/20 08:05 Dose: 10 meq Documented by: Sodium Chloride (Sodium Chloride Flush 0.9% 10 Ml Syringe) 10 ml IVP PRN PRN PRN Reason: NEEDED PER PROVIDER ORDERS Sodium Chloride (Sodium Chloride Flush 0.9% 10 Ml Syringe) 10 ml IVP 0100,0900,1700 [facility] Last Admin: 10/11/20 08:17 Dose: 10 ml Documented by: Levothyroxine [Synthroid] 75 mcg PO QDAC 02/09/17 Hydrochlorothiazide 12.5 mg PO DAILY 03/17/17 Cholecalciferol [Vitamin D3] 25 mcg PO DAILY 10/01/20 Potassium Chloride 10 meq PO DAILY 10/01/20 Aspirin EC [Ecotrin] 325 mg PO BID 10/10/20 Objective - Vital Signs/Intake & Output Reviewed Vital Signs: Yes Vital Signs: Vital Signs x48h Temp Pulse Resp BP BP Pulse Ox 10/11/20 08:13 36.7 C 74 18 140/74 H 94 10/11/20 06:19 95 10/11/20 04:14 36.7 C 74 20 136/69 H 97 Intake & Output: Intake & Output 10/08/20 10/09/20 10/10/20 10/11/20 23:59 23:59 23:59 23:59 Intake Total 1000 1400 Output Total 250 350 Balance 750 1050 - Objective General Appearance: positive: No acute distress, Alert Eyes Bilateral: positive: Normal inspection, Conjunctivae nml ENT: positive: ENT inspection nml Neck: positive: Nml inspection Respiratory: positive: No respiratory distress. negative: Wheezes, Rales Cardiovascular: positive: Regular rate & rhythm, No murmur. negative: Tachycardia Abdomen: positive: Non-tender, No distention. negative: Tenderness Extremities: positive: Pedal edema (+1 to +2 pitting edema in left lower extremity.), Other (Dressing in place over left knee.). negative: Calf tenderness, Maya's sign/cords Neurologic/Psychiatric: positive: Oriented x3, Motor nml, Sensation nml - Lab Results Fish Bones: 10/11/20 05:30 10/11/20 05:30 Other Labs: Lab Results x24hrs 10/11/20 10/11/20 10/11/20 Range/Units 07:38 07:38 07:38 WBC (4.8-10.8) x10^3/uL RBC (4.20-5.40) 10^6/uL Hgb (12.0-16.0) g/dL Hct (37.0-47.0) % MCV (81.0-99.0) fL MCH (27.0-31.0) pg MCHC (32.0-36.0) g/dL RDW (12.0-15.0) % Plt Count (130-450) 10^3/uL MPV (7.9-10.8) fL Neut # (Auto) (1.5-6.6) 10^3/uL Lymph # (Auto) (1.5-3.5) 10^3/uL Wheeler # (Auto) (0.0-1.0) 10^3/uL Eos # (Auto) (0.0-0.7) 10^3/uL Baso # (Auto) (0.0-0.1) 10^3/uL Absolute Nucleated RBC x10^3/uL Nucleated RBC % /100WBC PT 14.0 H (9.9-12.6) secs INR 1.3 H (0.8-1.2) Anti-Xa Level 0.0 ( - 0.7) U/mL Sodium (135-145) mmol/L Potassium (3.5-5.0) mmol/L Chloride (101-111) mmol/L Carbon Dioxide (21-32) mmol/L Anion Gap (6-13) BUN (6-20) mg/dL Creatinine (0.4-1.0) mg/dL Estimated GFR (MDRD) (>89) Glucose (70-100) mg/dL Calcium (8.5-10.3) mg/dL Magnesium (1.7-2.8) mg/dL Iron (28-170) ug/dL TIBC (250-450) ug/dL % Saturation (20-50) % Transferrin (192-382) mg/dL Ferritin 111.5 (11.0-306.8) ng/mL Total Bilirubin (0.2-1.0) mg/dL Direct Bilirubin (0.1-0.5) mg/dL AST (10-42) IU/L ALT (10-60) IU/L Alkaline Phosphatase (42-121) IU/L Troponin I High Sens (2.3-14.8) ng/L B-Natriuretic Peptide (5-100) pg/mL Total Protein (6.7-8.2) g/dL Albumin (3.2-5.5) g/dL Globulin (2.1-4.2) g/dL Albumin/Globulin Ratio (1.0-2.2) Lipase (22-51) U/L TSH (0.34-5.60) uIU/mL Urine Color Urine Clarity (CLEAR) Urine pH (5.0-7.5) PH Ur Specific [place] (1.002-1.030) Urine Protein (NEGATIVE) mg/dL Urine Glucose (UA) (NEGATIVE) mg/dL Urine Ketones (NEGATIVE) mg/dL Urine Occult Blood (NEGATIVE) Urine Nitrite (NEGATIVE) Urine Bilirubin (NEGATIVE) Urine Urobilinogen (NORMAL) E.U./dL Ur Leukocyte Esterase (NEGATIVE) Urine RBC (0-5) /HPF Urine WBC (0-5) /HPF Ur Squamous Epith Cells (<= Few) Urine Bacteria (None Seen) /HPF Ur Microscopic Review Urine Culture Comments Nasal Adenovirus (PCR) Nasal B. parapertussis DNA (PCR) Nasal Coronavir 229E PCR Nasal Coronavir HKU1 PCR Nasal Coronavir NL63 PCR Nasal Coronavir OC43 PCR Nasal Enterovir/Rhinovir PCR Nasal Influenza B PCR Nasal Influenza A PCR Nasal Parainfluen 1 PCR Nasal Parainfluen 2 PCR Nasal Parainfluen 3 PCR Nasal Parainfluen 4 PCR Nasal RSV (PCR) Nasal B.pertussis DNA PCR Nasal C.pneumoniae (PCR) Joesph Human Metapneumo PCR Nasal M.pneumoniae (PCR) Nasal SARS-CoV-2 (PCR) 10/11/20 10/11/20 10/11/20 Range/Units 07:38 05:30 05:30 WBC (4.8-10.8) x10^3/uL RBC (4.20-5.40) 10^6/uL Hgb (12.0-16.0) g/dL Hct (37.0-47.0) % MCV (81.0-99.0) fL MCH (27.0-31.0) pg MCHC (32.0-36.0) g/dL RDW (12.0-15.0) % Plt Count (130-450) 10^3/uL MPV (7.9-10.8) fL Neut # (Auto) (1.5-6.6) 10^3/uL Lymph # (Auto) (1.5-3.5) 10^3/uL Wheeler # (Auto) (0.0-1.0) 10^3/uL Eos # (Auto) (0.0-0.7) 10^3/uL Baso # (Auto) (0.0-0.1) 10^3/uL Absolute Nucleated RBC x10^3/uL Nucleated RBC % /100WBC PT (9.9-12.6) secs INR (0.8-1.2) Anti-Xa Level ( - 0.7) U/mL Sodium 140 (135-145) mmol/L Potassium 3.6 (3.5-5.0) mmol/L Chloride 105 (101-111) mmol/L Carbon Dioxide 24 (21-32) mmol/L Anion Gap 11.0 (6-13) BUN 8 (6-20) mg/dL Creatinine 0.6 (0.4-1.0) mg/dL Estimated GFR (MDRD) 97 (>89) Glucose 96 (70-100) mg/dL Calcium 7.9 L (8.5-10.3) mg/dL Magnesium (1.7-2.8) mg/dL Iron 11 L (28-170) ug/dL TIBC 214 L (250-450) ug/dL % Saturation 5 L (20-50) % Transferrin 153 L (192-382) mg/dL Ferritin (11.0-306.8) ng/mL Total Bilirubin 1.4 H (0.2-1.0) mg/dL Direct Bilirubin 0.4 (0.1-0.5) mg/dL AST 61 H (10-42) IU/L ALT 67 H (10-60) IU/L Alkaline Phosphatase 62 (42-121) IU/L Troponin I High Sens 91.1 H* (2.3-14.8) ng/L B-Natriuretic Peptide (5-100) pg/mL Total Protein 5.4 L (6.7-8.2) g/dL Albumin 2.5 L (3.2-5.5) g/dL Globulin 2.9 (2.1-4.2) g/dL Albumin/Globulin Ratio (1.0-2.2) Lipase (22-51) U/L TSH (0.34-5.60) uIU/mL Urine Color Urine Clarity (CLEAR) Urine pH (5.0-7.5) PH Ur Specific [place] (1.002-1.030) Urine Protein (NEGATIVE) mg/dL Urine Glucose (UA) (NEGATIVE) mg/dL Urine Ketones (NEGATIVE) mg/dL Urine Occult Blood (NEGATIVE) Urine Nitrite (NEGATIVE) Urine Bilirubin (NEGATIVE) Urine Urobilinogen (NORMAL) E.U./dL Ur Leukocyte Esterase (NEGATIVE) Urine RBC (0-5) /HPF Urine WBC (0-5) /HPF Ur Squamous Epith Cells (<= Few) Urine Bacteria (None Seen) /HPF Ur Microscopic Review Urine Culture Comments Nasal Adenovirus (PCR) Nasal B. parapertussis DNA (PCR) Nasal Coronavir 229E PCR Nasal Coronavir HKU1 PCR Nasal Coronavir NL63 PCR Nasal Coronavir OC43 PCR Nasal Enterovir/Rhinovir PCR Nasal Influenza B PCR Nasal Influenza A PCR Nasal Parainfluen 1 PCR Nasal Parainfluen 2 PCR Nasal Parainfluen 3 PCR Nasal Parainfluen 4 PCR Nasal RSV (PCR) Nasal B.pertussis DNA PCR Nasal C.pneumoniae (PCR) Joesph Human Metapneumo PCR Nasal M.pneumoniae (PCR) Nasal SARS-CoV-2 (PCR) 10/11/20 10/10/20 10/10/20 Range/Units 05:30 21:10 17:18 WBC 4.5 L (4.8-10.8) x10^3/uL RBC 3.07 L (4.20-5.40) 10^6/uL Hgb 8.8 L (12.0-16.0) g/dL Hct 27.2 L (37.0-47.0) % MCV 88.6 (81.0-99.0) fL MCH 28.7 (27.0-31.0) pg MCHC 32.4 (32.0-36.0) g/dL RDW 15.1 H (12.0-15.0) % Plt Count 83 L (130-450) 10^3/uL MPV 11.8 H (7.9-10.8) fL Neut # (Auto) 3.6 (1.5-6.6) 10^3/uL Lymph # (Auto) 0.4 L (1.5-3.5) 10^3/uL Wheeler # (Auto) 0.4 (0.0-1.0) 10^3/uL Eos # (Auto) 0.1 (0.0-0.7) 10^3/uL Baso # (Auto) 0.0 (0.0-0.1) 10^3/uL Absolute Nucleated RBC 0.00 x10^3/uL Nucleated RBC % 0.0 /100WBC PT (9.9-12.6) secs INR (0.8-1.2) Anti-Xa Level ( - 0.7) U/mL Sodium (135-145) mmol/L Potassium (3.5-5.0) mmol/L Chloride (101-111) mmol/L Carbon Dioxide (21-32) mmol/L Anion Gap (6-13) BUN (6-20) mg/dL Creatinine (0.4-1.0) mg/dL Estimated GFR (MDRD) (>89) Glucose (70-100) mg/dL Calcium (8.5-10.3) mg/dL Magnesium (1.7-2.8) mg/dL Iron (28-170) ug/dL TIBC (250-450) ug/dL % Saturation (20-50) % Transferrin (192-382) mg/dL Ferritin (11.0-306.8) ng/mL Total Bilirubin (0.2-1.0) mg/dL Direct Bilirubin (0.1-0.5) mg/dL AST (10-42) IU/L ALT (10-60) IU/L Alkaline Phosphatase (42-121) IU/L Troponin I High Sens 112.6 H* 126.2 H* (2.3-14.8) ng/L B-Natriuretic Peptide (5-100) pg/mL Total Protein (6.7-8.2) g/dL Albumin (3.2-5.5) g/dL Globulin (2.1-4.2) g/dL Albumin/Globulin Ratio (1.0-2.2) Lipase (22-51) U/L TSH (0.34-5.60) uIU/mL Urine Color Urine Clarity (CLEAR) Urine pH (5.0-7.5) PH Ur Specific [place] (1.002-1.030) Urine Protein (NEGATIVE) mg/dL Urine Glucose (UA) (NEGATIVE) mg/dL Urine Ketones (NEGATIVE) mg/dL Urine Occult Blood (NEGATIVE) Urine Nitrite (NEGATIVE) Urine Bilirubin (NEGATIVE) Urine Urobilinogen (NORMAL) E.U./dL Ur Leukocyte Esterase (NEGATIVE) Urine RBC (0-5) /HPF Urine WBC (0-5) /HPF Ur Squamous Epith Cells (<= Few) Urine Bacteria (None Seen) /HPF Ur Microscopic Review Urine Culture Comments Nasal Adenovirus (PCR) Nasal B. parapertussis DNA (PCR) Nasal Coronavir 229E PCR Nasal Coronavir HKU1 PCR Nasal Coronavir NL63 PCR Nasal Coronavir OC43 PCR Nasal Enterovir/Rhinovir PCR Nasal Influenza B PCR Nasal Influenza A PCR Nasal Parainfluen 1 PCR Nasal Parainfluen 2 PCR Nasal Parainfluen 3 PCR Nasal Parainfluen 4 PCR Nasal RSV (PCR) Nasal B.pertussis DNA PCR Nasal C.pneumoniae (PCR) Joesph Human Metapneumo PCR Nasal M.pneumoniae (PCR) Nasal SARS-CoV-2 (PCR) 10/10/20 10/10/20 10/10/20 Range/Units 13:11 13:10 12:24 WBC (4.8-10.8) x10^3/uL RBC (4.20-5.40) 10^6/uL Hgb (12.0-16.0) g/dL Hct (37.0-47.0) % MCV (81.0-99.0) fL MCH (27.0-31.0) pg MCHC (32.0-36.0) g/dL RDW (12.0-15.0) % Plt Count (130-450) 10^3/uL MPV (7.9-10.8) fL Neut # (Auto) (1.5-6.6) 10^3/uL Lymph # (Auto) (1.5-3.5) 10^3/uL [place] # (Auto) (0.0-1.0) 10^3/uL Eos # (Auto) (0.0-0.7) 10^3/uL Baso # (Auto) (0.0-0.1) 10^3/uL Absolute Nucleated RBC x10^3/uL Nucleated RBC % /100WBC PT (9.9-12.6) secs INR (0.8-1.2) Anti-Xa Level ( - 0.7) U/mL Sodium (135-145) mmol/L Potassium (3.5-5.0) mmol/L Chloride (101-111) mmol/L Carbon Dioxide (21-32) mmol/L Anion Gap (6-13) BUN (6-20) mg/dL Creatinine (0.4-1.0) mg/dL Estimated GFR (MDRD) (>89) Glucose (70-100) mg/dL Calcium (8.5-10.3) mg/dL Magnesium (1.7-2.8) mg/dL Iron (28-170) ug/dL TIBC (250-450) ug/dL % Saturation (20-50) % Transferrin (192-382) mg/dL Ferritin (11.0-306.8) ng/mL Total Bilirubin (0.2-1.0) mg/dL Direct Bilirubin (0.1-0.5) mg/dL AST (10-42) IU/L ALT (10-60) IU/L Alkaline Phosphatase (42-121) IU/L Troponin I High Sens 108.3 H* (2.3-14.8) ng/L B-Natriuretic Peptide (5-100) pg/mL Total Protein (6.7-8.2) g/dL Albumin (3.2-5.5) g/dL Globulin (2.1-4.2) g/dL Albumin/Globulin Ratio (1.0-2.2) Lipase (22-51) U/L TSH (0.34-5.60) uIU/mL Urine Color YELLOW Urine Clarity CLEAR (CLEAR) Urine pH 6.0 (5.0-7.5) PH Ur Specific [place] 1.025 (1.002-1.030) Urine Protein 30 H (NEGATIVE) mg/dL Urine Glucose (UA) NEGATIVE (NEGATIVE) mg/dL Urine Ketones >=80 H (NEGATIVE) mg/dL Urine Occult Blood NEGATIVE (NEGATIVE) Urine Nitrite NEGATIVE (NEGATIVE) Urine Bilirubin NEGATIVE (NEGATIVE) Urine Urobilinogen 0.2 (NORMAL) (NORMAL) E.U./dL Ur Leukocyte Esterase NEGATIVE (NEGATIVE) Urine RBC 0-5 (0-5) /HPF Urine WBC 0-3 (0-5) /HPF Ur Squamous Epith Cells MOD Squamous H (<= Few) Urine Bacteria Rare (None Seen) /HPF Ur Microscopic Review INDICATED Urine Culture Comments NOT INDICATED Nasal Adenovirus (PCR) NOT DETECTED Nasal B. parapertussis DNA (PCR) NOT DETECTED Nasal Coronavir 229E PCR NOT DETECTED Nasal Coronavir HKU1 PCR NOT DETECTED Nasal Coronavir NL63 PCR NOT DETECTED Nasal Coronavir OC43 PCR NOT DETECTED Nasal Enterovir/Rhinovir PCR NOT DETECTED Nasal Influenza B PCR NOT DETECTED Nasal Influenza A PCR NOT DETECTED Nasal Parainfluen 1 PCR NOT DETECTED Nasal Parainfluen 2 PCR NOT DETECTED Nasal Parainfluen 3 PCR NOT DETECTED Nasal Parainfluen 4 PCR NOT DETECTED Nasal RSV (PCR) NOT DETECTED Nasal B.pertussis DNA PCR NOT DETECTED Nasal C.pneumoniae (PCR) NOT DETECTED Joesph Human Metapneumo PCR NOT DETECTED Nasal M.pneumoniae (PCR) NOT DETECTED Nasal SARS-CoV-2 (PCR) NOT DETECTED 10/10/20 10/10/20 10/10/20 Range/Units 11:03 11:03 11:03 WBC (4.8-10.8) x10^3/uL RBC (4.20-5.40) 10^6/uL Hgb (12.0-16.0) g/dL Hct (37.0-47.0) % MCV (81.0-99.0) fL MCH (27.0-31.0) pg MCHC (32.0-36.0) g/dL RDW (12.0-15.0) % Plt Count (130-450) 10^3/uL MPV (7.9-10.8) fL Neut # (Auto) (1.5-6.6) 10^3/uL Lymph # (Auto) (1.5-3.5) 10^3/uL Wheeler # (Auto) (0.0-1.0) 10^3/uL Eos # (Auto) (0.0-0.7) 10^3/uL Baso # (Auto) (0.0-0.1) 10^3/uL Absolute Nucleated RBC x10^3/uL Nucleated RBC % /100WBC PT (9.9-12.6) secs INR (0.8-1.2) Anti-Xa Level ( - 0.7) U/mL Sodium (135-145) mmol/L Potassium (3.5-5.0) mmol/L Chloride (101-111) mmol/L Carbon Dioxide (21-32) mmol/L Anion Gap (6-13) BUN (6-20) mg/dL Creatinine (0.4-1.0) mg/dL Estimated GFR (MDRD) (>89) Glucose (70-100) mg/dL Calcium (8.5-10.3) mg/dL Magnesium 1.7 (1.7-2.8) mg/dL Iron (28-170) ug/dL TIBC (250-450) ug/dL % Saturation (20-50) % Transferrin (192-382) mg/dL Ferritin (11.0-306.8) ng/mL Total Bilirubin (0.2-1.0) mg/dL Direct Bilirubin (0.1-0.5) mg/dL AST (10-42) IU/L ALT (10-60) IU/L Alkaline Phosphatase (42-121) IU/L Troponin I High Sens 100.5 H* (2.3-14.8) ng/L B-Natriuretic Peptide (5-100) pg/mL Total Protein (6.7-8.2) g/dL Albumin (3.2-5.5) g/dL Globulin (2.1-4.2) g/dL Albumin/Globulin Ratio (1.0-2.2) Lipase (22-51) U/L TSH 1.71 (0.34-5.60) uIU/mL Urine Color Urine Clarity (CLEAR) Urine pH (5.0-7.5) PH Ur Specific [place] (1.002-1.030) Urine Protein (NEGATIVE) mg/dL Urine Glucose (UA) (NEGATIVE) mg/dL Urine Ketones (NEGATIVE) mg/dL Urine Occult Blood (NEGATIVE) Urine Nitrite (NEGATIVE) Urine Bilirubin (NEGATIVE) Urine Urobilinogen (NORMAL) E.U./dL Ur Leukocyte Esterase (NEGATIVE) Urine RBC (0-5) /HPF Urine WBC (0-5) /HPF Ur Squamous Epith Cells (<= Few) Urine Bacteria (None Seen) /HPF Ur Microscopic Review Urine Culture Comments Nasal Adenovirus (PCR) Nasal B. parapertussis DNA (PCR) Nasal Coronavir 229E PCR Nasal Coronavir HKU1 PCR Nasal Coronavir NL63 PCR Nasal Coronavir OC43 PCR Nasal Enterovir/Rhinovir PCR Nasal Influenza B PCR Nasal Influenza A PCR Nasal Parainfluen 1 PCR Nasal Parainfluen 2 PCR Nasal Parainfluen 3 PCR Nasal Parainfluen 4 PCR Nasal RSV (PCR) Nasal B.pertussis DNA PCR Nasal C.pneumoniae (PCR) Joesph Human Metapneumo PCR Nasal M.pneumoniae (PCR) Nasal SARS-CoV-2 (PCR) 10/10/20 10/10/20 10/10/20 Range/Units 11:03 11:03 11:03 WBC 6.4 (4.8-10.8) x10^3/uL RBC 3.57 L (4.20-5.40) 10^6/uL Hgb 10.4 L (12.0-16.0) g/dL Hct 31.0 L (37.0-47.0) % MCV 86.8 (81.0-99.0) fL MCH 29.1 (27.0-31.0) pg MCHC 33.5 (32.0-36.0) g/dL RDW 14.6 (12.0-15.0) % Plt Count 91 L (130-450) 10^3/uL MPV 11.3 H (7.9-10.8) fL Neut # (Auto) 5.4 (1.5-6.6) 10^3/uL Lymph # (Auto) 0.4 L (1.5-3.5) 10^3/uL Wheeler # (Auto) 0.6 (0.0-1.0) 10^3/uL Eos # (Auto) 0.0 (0.0-0.7) 10^3/uL Baso # (Auto) 0.1 (0.0-0.1) 10^3/uL Absolute Nucleated RBC 0.00 x10^3/uL Nucleated RBC % 0.0 /100WBC PT (9.9-12.6) secs INR (0.8-1.2) Anti-Xa Level ( - 0.7) U/mL Sodium 138 (135-145) mmol/L Potassium 3.2 L (3.5-5.0) mmol/L Chloride 104 (101-111) mmol/L Carbon Dioxide 21 (21-32) mmol/L Anion Gap 13.0 (6-13) BUN 13 (6-20) mg/dL Creatinine 0.6 (0.4-1.0) mg/dL Estimated GFR (MDRD) 97 (>89) Glucose 116 H (70-100) mg/dL Calcium 8.1 L (8.5-10.3) mg/dL Magnesium (1.7-2.8) mg/dL Iron (28-170) ug/dL TIBC (250-450) ug/dL % Saturation (20-50) % Transferrin (192-382) mg/dL Ferritin (11.0-306.8) ng/mL Total Bilirubin 1.7 H (0.2-1.0) mg/dL Direct Bilirubin (0.1-0.5) mg/dL AST 85 H (10-42) IU/L ALT 86 H (10-60) IU/L Alkaline Phosphatase 48 (42-121) IU/L Troponin I High Sens (2.3-14.8) ng/L B-Natriuretic Peptide 109 H (5-100) pg/mL Total Protein 6.2 L (6.7-8.2) g/dL Albumin 3.0 L (3.2-5.5) g/dL Globulin 3.2 (2.1-4.2) g/dL Albumin/Globulin Ratio 0.9 L (1.0-2.2) Lipase 23 (22-51) U/L TSH (0.34-5.60) uIU/mL Urine Color Urine Clarity (CLEAR) Urine pH (5.0-7.5) PH Ur Specific [place] (1.002-1.030) Urine Protein (NEGATIVE) mg/dL Urine Glucose (UA) (NEGATIVE) mg/dL Urine Ketones (NEGATIVE) mg/dL Urine Occult Blood (NEGATIVE) Urine Nitrite (NEGATIVE) Urine Bilirubin (NEGATIVE) Urine Urobilinogen (NORMAL) E.U./dL Ur Leukocyte Esterase (NEGATIVE) Urine RBC (0-5) /HPF Urine WBC (0-5) /HPF Ur Squamous Epith Cells (<= Few) Urine Bacteria (None Seen) /HPF Ur Microscopic Review Urine Culture Comments Nasal Adenovirus (PCR) Nasal B. parapertussis DNA (PCR) Nasal Coronavir 229E PCR Nasal Coronavir HKU1 PCR Nasal Coronavir NL63 PCR Nasal Coronavir OC43 PCR Nasal Enterovir/Rhinovir PCR Nasal Influenza B PCR Nasal Influenza A PCR Nasal Parainfluen 1 PCR Nasal Parainfluen 2 PCR Nasal Parainfluen 3 PCR Nasal Parainfluen 4 PCR Nasal RSV (PCR) Nasal B.pertussis DNA PCR Nasal C.pneumoniae (PCR) Joesph Human Metapneumo PCR Nasal M.pneumoniae (PCR) Nasal SARS-CoV-2 (PCR) ABX Reporting Has patient been on IV antibiotics over the past 48 hours?: No Assessment/Plan - Problem List (1) Bilateral pulmonary embolism Impression: She has bilateral pulmonary embolism evident on CT. This is likely a provoked pulmonary embolism given her recent orthopedic intervention. Although there was concern for right heart strain on CT angiogram, echocardiogram obtained yesterday showed a mildly dilated RV with normal systolic function. Her PA pressures were elevated in the 60s. She is normotensive and is not tachycardic. Given her thrombocytopenia, we will observe her while she is started on anticoagulation. We will start her on heparin today. If her thrombocytopenia becomes more severe then she will likely need to be transferred for an IVC filter. Will obtain duplex of the lower extremities to evaluate for DVT. Her platelet count remained stable without evidence of bleeding over next 24 to 48 hours we will transition her to oral anticoagulation. (2) Paroxysmal atrial fibrillation with rapid ventricular response Impression: She has been in a sinus rhythm since admission. This was likely exacerbated by the pulmonary embolism. She has declined AV iftikhar blocking agents and prefers to watch her heart rate for the time being. She is on anticoagulation given the pulmonary embolism. We will continue to monitor on telemetry during this hospitalization given the pulmonary embolism. (3) Elevated troponin Impression: Likely related to the pulmonary embolism or demand ischemia due to the atrial fibrillation with rapid ventricular response. Her repeat EKG does not suggest ischemia and she has no chest pain. Her troponin is now trending down and we will no longer trend this. (4) Thrombocytopenia Impression: Her platelet count continues to decrease and is in the 80s today. Suspect this is likely due to the pulmonary embolism. Given she needs anticoagulation, we wi ll monitor her over next 24 to 48 hours to ensure that her platelet count remained stable while she is on heparin. Daily CBC. (5) Postoperative anemia Impression: Her hemoglobin is decreased this morning to less than 9. There is currently no evidence of active hemorrhage. She does have thrombocytopenia as well. We will check iron studies and recheck her hemoglobin this evening given she is now on anticoagulation. We will transfuse for goal hemoglobin greater than 7. (6) Status post total left knee replacement Impression: She is doing well and is now postop day 3. Continue with Tylenol as needed for pain control. I did notify her orthopedic surgeon that she is hospitalized and he will be seeing her later today. We will ask PT to see the patient. (7) Elevated LFTs Impression: Her LFTs are improved today. Suspect this is likely related to the use of Tylenol or due to passive congestion given the pulmonary hypertension. We will hold off on ultrasound for the time being. We will continue with Tylenol as needed but at a lower dose given the improvement in her LFTs. Continue to trend LFTs. (8) Hypertension Impression: Her blood pressure is well controlled on hydrochlorothiazide which we will continue. (9) Hypokalemia Impression: Has resolved. We will continue her home potassium but at a higher dose of 20 mEq daily. (10) Hypothyroidism Impression: Stable. Continue Synthroid. (11) Psoriasis Impression: Stable. She is not on any therapy.
--- NOTE | 2020-10-11 12:03 | Ultrasound Report ---
PROCEDURE: Duplex Ext Veins Bilateral INDICATIONS: CHRISTINA RAPP TECHNIQUE: Real-time imaging, as well as color and pulse Doppler interrogation, were performed of the deep veins of both legs from the inguinal ligament to the popliteal fossa. COMPARISON: None. FINDINGS: On the left, the peroneal veins are occluded. Areas of occlusive and nonocclusive thrombus can be seen into the left posterior tibial veins. Within the left popliteal vein, there is a chronic appearing fibrotic strands. More proximally, no left-sided deep venous thrombosis can be seen. No right-sided deep venous thrombosis can be seen. IMPRESSION: On the left, deep venous thrombosis can be seen distal to the knee. Fibrotic strands can be seen within the left popliteal vein, which is likely related to chronic deep venous thrombosis Note: Concordant preliminary findings given by the director of institutional research upon the completion of the examination to Dr. Conklin at 11:30 AM. Reviewed by: Johny Kincaid MD on 10/11/2020 11:01 AM [facility] Approved by: Johny Kincaid MD on 10/11/2020 11:01 AM [facility] Station ID: [id number]
--- NOTE | 2020-10-11 14:46 | PROVIDER PROGRESS NOTE ---
Subjective - General Admit Date: 10/11/20 Procedure Date: 10/08/20 Post Op Days: 3 Procedure Performed: Left total knee arthroplasty - Review of Systems Wound/Incisions: positive: Healing well, Dressing dry and intact. negative: Other (Mild bloody drainage without change in the past 24 hours into dressing) All Other Systems: positive: Reviewed and negative - Other Other Information/Narrative: The patient called my office yesterday with a rapid heart rate and reduced blood pressure. She noted some nausea and felt faint. She did not have any chest pain or shortness of breath. She was advised to be seen in the emergency room where she was evaluated and admitted to the hospital. She was found to have atrial fibrillation which was converted but also had a CT of the chest that suggested pulmonary embolus. She has mild pain to her left knee that is controlled with Tylenol. She is comfortable at rest. She was progressing with her walker until hospitalization. She seems to be doing well with regard to her knee. Overall, she is progressing well and is on anticoagulation. She denies chest pain, shortness of breath, nausea or vomiting or fever/chills. Her examination shows that the knee has mild to moderate swelling. There is no sign of hematoma. There is bloody drainage to the lower portion of the dressing, silver impregnated dressing that is relatively thin. The dressing shows no increase in the size of the bloody drainage over the past 24 hours. On exam the knee shows intact extensor mechanism, neurologic and vascular systems are intact to left lower extremity. Impression: Physical and Occupational Therapy can be continued while she is in the hospital. Will monitor for signs of bleeding to her knee as she has been placed on anticoagulation. She was on aspirin prophylaxis after surgery and at home. Objective - Patient Data Vital Signs: Vital Signs x48h Temp Pulse Pulse Pulse Pulse Resp BP 10/11/20 13:00 36.6 C 80 18 10/11/20 12:25 10/11/20 11:45 81 72 141/78 H 10/11/20 10:27 36.7 C 74 18 10/11/20 08:13 36.7 C 74 18 BP BP Pulse Ox 10/11/20 13:00 138/70 H 94 10/11/20 12:25 89 L 10/11/20 11:45 134/74 H 10/11/20 10:27 94 10/11/20 08:13 140/74 H 94 Weight: Weight 10/09/20 10/10/20 10/11/20 23:59 23:59 23:59 Weight (kg) 90.5 kg Intake & Output: Intake and Output Totals x24h 10/09/20 10/10/20 10/11/20 23:59 23:59 23:59 Intake Total 1000 1996 Output Total 250 1050 Balance 750 946 - Lab Results Lab Results: 10/11/20 05:30 10/11/20 05:30 Other Lab Results: Lab Results x24hrs 10/11/20 10/11/20 10/11/20 Range/Units 07:38 07:38 07:38 WBC (4.8-10.8) x10^3/uL RBC (4.20-5.40) 10^6/uL Hgb (12.0-16.0) g/dL Hct (37.0-47.0) % MCV (81.0-99.0) fL MCH (27.0-31.0) pg MCHC (32.0-36.0) g/dL RDW (12.0-15.0) % Plt Count (130-450) 10^3/uL MPV (7.9-10.8) fL Neut # (Auto) (1.5-6.6) 10^3/uL Lymph # (Auto) (1.5-3.5) 10^3/uL [place] # (Auto) (0.0-1.0) 10^3/uL Eos # (Auto) (0.0-0.7) 10^3/uL Baso # (Auto) (0.0-0.1) 10^3/uL Absolute Nucleated RBC x10^3/uL Nucleated RBC % /100WBC PT 14.0 H (9.9-12.6) secs INR 1.3 H (0.8-1.2) Anti-Xa Level 0.0 ( - 0.7) U/mL Sodium (135-145) mmol/L Potassium (3.5-5.0) mmol/L Chloride (101-111) mmol/L Carbon Dioxide (21-32) mmol/L Anion Gap (6-13) BUN (6-20) mg/dL Creatinine (0.4-1.0) mg/dL Estimated GFR (MDRD) (>89) Glucose (70-100) mg/dL Calcium (8.5-10.3) mg/dL Iron (28-170) ug/dL TIBC (250-450) ug/dL % Saturation (20-50) % Transferrin (192-382) mg/dL Ferritin 111.5 (11.0-306.8) ng/mL Total Bilirubin (0.2-1.0) mg/dL Direct Bilirubin (0.1-0.5) mg/dL AST (10-42) IU/L ALT (10-60) IU/L Alkaline Phosphatase (42-121) IU/L Troponin I High Sens (2.3-14.8) ng/L Total Protein (6.7-8.2) g/dL Albumin (3.2-5.5) g/dL Globulin (2.1-4.2) g/dL 10/11/20 10/11/20 10/11/20 Range/Units 07:38 05:30 05:30 WBC (4.8-10.8) x10^3/uL RBC (4.20-5.40) 10^6/uL Hgb (12.0-16.0) g/dL Hct (37.0-47.0) % MCV (81.0-99.0) fL MCH (27.0-31.0) pg MCHC (32.0-36.0) g/dL RDW (12.0-15.0) % Plt Count (130-450) 10^3/uL MPV (7.9-10.8) fL Neut # (Auto) (1.5-6.6) 10^3/uL Lymph # (Auto) (1.5-3.5) 10^3/uL [place] # (Auto) (0.0-1.0) 10^3/uL Eos # (Auto) (0.0-0.7) 10^3/uL Baso # (Auto) (0.0-0.1) 10^3/uL Absolute Nucleated RBC x10^3/uL Nucleated RBC % /100WBC PT (9.9-12.6) secs INR (0.8-1.2) Anti-Xa Level ( - 0.7) U/mL Sodium 140 (135-145) mmol/L Potassium 3.6 (3.5-5.0) mmol/L Chloride 105 (101-111) mmol/L Carbon Dioxide 24 (21-32) mmol/L Anion Gap 11.0 (6-13) BUN 8 (6-20) mg/dL Creatinine 0.6 (0.4-1.0) mg/dL Estimated GFR (MDRD) 97 (>89) Glucose 96 (70-100) mg/dL Calcium 7.9 L (8.5-10.3) mg/dL Iron 11 L (28-170) ug/dL TIBC 214 L (250-450) ug/dL % Saturation 5 L (20-50) % Transferrin 153 L (192-382) mg/dL Ferritin (11.0-306.8) ng/mL Total Bilirubin 1.4 H (0.2-1.0) mg/dL Direct Bilirubin 0.4 (0.1-0.5) mg/dL AST 61 H (10-42) IU/L ALT 67 H (10-60) IU/L Alkaline Phosphatase 62 (42-121) IU/L Troponin I High Sens 91.1 H* (2.3-14.8) ng/L Total Protein 5.4 L (6.7-8.2) g/dL Albumin 2.5 L (3.2-5.5) g/dL Globulin 2.9 (2.1-4.2) g/dL 10/11/20 10/10/20 10/10/20 Range/Units 05:30 21:10 17:18 WBC 4.5 L (4.8-10.8) x10^3/uL RBC 3.07 L (4.20-5.40) 10^6/uL Hgb 8.8 L (12.0-16.0) g/dL Hct 27.2 L (37.0-47.0) % MCV 88.6 (81.0-99.0) fL MCH 28.7 (27.0-31.0) pg MCHC 32.4 (32.0-36.0) g/dL RDW 15.1 H (12.0-15.0) % Plt Count 83 L (130-450) 10^3/uL MPV 11.8 H (7.9-10.8) fL Neut # (Auto) 3.6 (1.5-6.6) 10^3/uL Lymph # (Auto) 0.4 L (1.5-3.5) 10^3/uL [place] # (Auto) 0.4 (0.0-1.0) 10^3/uL Eos # (Auto) 0.1 (0.0-0.7) 10^3/uL Baso # (Auto) 0.0 (0.0-0.1) 10^3/uL Absolute Nucleated RBC 0.00 x10^3/uL Nucleated RBC % 0.0 /100WBC PT (9.9-12.6) secs INR (0.8-1.2) Anti-Xa Level ( - 0.7) U/mL Sodium (135-145) mmol/L Potassium (3.5-5.0) mmol/L Chloride (101-111) mmol/L Carbon Dioxide (21-32) mmol/L Anion Gap (6-13) BUN (6-20) mg/dL Creatinine (0.4-1.0) mg/dL Estimated GFR (MDRD) (>89) Glucose (70-100) mg/dL Calcium (8.5-10.3) mg/dL Iron (28-170) ug/dL TIBC (250-450) ug/dL % Saturation (20-50) % Transferrin (192-382) mg/dL Ferritin (11.0-306.8) ng/mL Total Bilirubin (0.2-1.0) mg/dL Direct Bilirubin (0.1-0.5) mg/dL AST (10-42) IU/L ALT (10-60) IU/L Alkaline Phosphatase (42-121) IU/L Troponin I High Sens 112.6 H* 126.2 H* (2.3-14.8) ng/L Total Protein (6.7-8.2) g/dL Albumin (3.2-5.5) g/dL Globulin (2.1-4.2) g/dL - Current Medications Current Medications: Current Medications Generic Name Dose Route Start Last Admin Trade Name Freq PRN Reason Stop Dose Admin Acetaminophen 650 mg 10/10/20 14:00 10/11/20 06:15 Acetaminophen 325 Mg Tablet PO 650 mg Q4HR PRN Administration Pain 1 to 4 Cholecalciferol 25 mcg 10/11/20 09:00 10/11/20 08:05 Cholecalciferol 25 Mcg Tablet PO 25 mcg DAILY RASHI Administration Hydrochlorothiazide 12.5 mg 10/11/20 09:00 10/11/20 08:05 Hydrochlorothiazide 12.5 Mg Capsule PO 12.5 mg DAILY RASHI Administration Heparin Sodium/Dextrose 25,000 unit in 500 mls @ 27.15 mls/hr 10/11/20 08:00 10/11/20 08:19 Heparin Sodium/Dextrose IV 15 unit/kg/hr .[id number] RASHI 27.15 mls/hr Administration Protocol 15 UNIT/KG/HR Levothyroxine Sodium 75 mcg 10/11/20 07:00 10/11/20 06:14 Levothyroxine 75 Mcg Tablet PO 75 mcg QDAC RASHI Administration Potassium Chloride 10 meq 10/11/20 09:00 10/11/20 08:05 Potassium Chloride 10 Meq Capsule PO 10 meq DAILY RASHI Administration Sodium Chloride 10 ml 10/10/20 17:00 10/11/20 08:17 Sodium Chloride Flush 0.9% 10 Ml Syringe IVP 10 ml 0100,0900,1700 RASHI Administration
[2020-10-11 18:04] LABS: HGB - HEMOGLOBIN 10.1 g/dL (12.0-16.0); MEAN CORPUSCULAR HEMOGLOBIN 28.5 pg (27.0-31.0); MEAN CORPUSCULAR HGB CONC 31.6 g/dL (32.0-36.0); MEAN CORPUSCULAR VOLUME 90.4 fL (81.0-99.0); MEAN PLATELET VOLUME 11.8 fL (7.9-10.8); RED BLOOD COUNT 3.54 10^6/uL (4.20-5.40); RED CELL DISTRIBUTION WIDTH 15.1 % (12.0-15.0); WHITE BLOOD COUNT 5.7 x10^3/uL (4.8-10.8)
[2020-10-12] MEDS: SODIUM CHLORIDE 0.9% 500 ML IV PRN ×2 (00:37→19:02)
[2020-10-12] MEDS: SODIUM CHLORIDE FLUSH 0.9% 10 ML SYRINGE IVP SCH ×3 (02:36→16:49)
[2020-10-12] MEDS: HEPARIN 25000UNITS/500ML (D5W) 25,000 UNIT/500 ML BAG IV SCH (03:24)
[2020-10-12 04:18] LABS: BASOPHILS % (AUTO) 0.7 %; EOSINOPHILS # (AUTO) 0.1 10^3/uL (0.0-0.7); EOSINOPHILS % (AUTO) 2.2 %; HCT - HEMATOCRIT 28.2 % (37.0-47.0); HGB - HEMOGLOBIN 9.1 g/dL (12.0-16.0); LYMPHOCYTES # (AUTO) 0.5 10^3/uL (1.5-3.5); LYMPHOCYTES % (AUTO) 11.6 %; MEAN CORPUSCULAR HEMOGLOBIN 28.5 pg (27.0-31.0); MEAN CORPUSCULAR HGB CONC 32.3 g/dL (32.0-36.0); MEAN CORPUSCULAR VOLUME 88.4 fL (81.0-99.0); MEAN PLATELET VOLUME 10.3 fL (7.9-10.8); MONOCYTES # (AUTO) 0.4 10^3/uL (0.0-1.0); MONOCYTES % (AUTO) 8.4 %; NEUTROPHILS # (AUTO) 3.2 10^3/uL (1.5-6.6); NEUTROPHILS % (AUTO) 76.1 %; PLT - PLATELET COUNT 94 10^3/uL (130-450); RED BLOOD COUNT 3.19 10^6/uL (4.20-5.40); RED CELL DISTRIBUTION WIDTH 15.1 % (12.0-15.0); WHITE BLOOD COUNT 4.2 x10^3/uL (4.8-10.8)
[2020-10-12 04:25] LABS: CALCIUM 7.9 mg/dL (8.5-10.3); CREATININE 0.6 mg/dL (0.4-1.0); POTASSIUM 3.5 mmol/L (3.5-5.0)
[2020-10-12] MEDS: LEVOTHYROXINE 75 MCG TABLET PO SCH (06:21)
--- NOTE | 2020-10-12 07:26 | PROVIDER PROGRESS NOTE ---
Subjective - Prog Note Date Prog Note Date: 10/12/20 - Subjective Subjective: She feels a little short of breath with exertion and has a nonproductive cough. Reports occasional chest pain when she has a cough but did not have any pain when ambulating. States her left knee feels well. Current Medications - Current Medications Current Medications: Active Medications Acetaminophen (Acetaminophen 325 Mg Tablet) 650 mg PO Q4HR PRN PRN Reason: Pain 1 to 4 Last Admin: 10/11/20 06:15 Dose: 650 mg Documented by: Cholecalciferol (Cholecalciferol 25 Mcg Tablet) 25 mcg PO DAILY [facility] Last Admin: 10/12/20 08:34 Dose: 25 mcg Documented by: Heparin Sodium (Porcine) (Heparin 1,000 Unit/Ml Vial) 2,250 unit 25 unit/kg (2250 unit) IVP Q6H PRN PRN Reason: ANTI-XA < 0.2 Hydrochlorothiazide (Hydrochlorothiazide 12.5 Mg Capsule) 12.5 mg PO DAILY [facility] Last Admin: 10/12/20 08:34 Dose: 12.5 mg Documented by: Heparin Sodium/Dextrose (Heparin Sodium/Dextrose) 25,000 unit in 500 mls @ 27.15 mls/hr IV .[id number] [facility]; Protocol Last Titration: 10/12/20 09:36 Dose: 14 unit/kg/hr, 25.34 mls/hr Documented by: Sodium Chloride (Normal Saline 0.9%) 500 mls @ 0 mls/hr IV Q24H PRN PRN Reason: TKO RATE Last Infusion: 10/12/20 09:36 Dose: 30 mls/hr Documented by: Levothyroxine Sodium (Levothyroxine 75 Mcg Tablet) 75 mcg PO QDAC [facility] Last Admin: 10/12/20 06:21 Dose: 75 mcg Documented by: Ondansetron HCl (Ondansetron Odt 4 Mg Tablet) 4 mg TL Q6HR PRN PRN Reason: Nausea / Vomiting Ondansetron HCl (Ondansetron 4 Mg/2 Ml Vial) 4 mg IVP Q6HR PRN PRN Reason: Nausea / Vomiting Potassium Chloride (Potassium Chloride 10 Meq Capsule) 10 meq PO DAILY [facility] Last Admin: 10/12/20 08:34 Dose: 10 meq Documented by: Sodium Chloride (Sodium Chloride Flush 0.9% 10 Ml Syringe) 10 ml IVP PRN PRN PRN Reason: NEEDED PER PROVIDER ORDERS Sodium Chloride (Sodium Chloride Flush 0.9% 10 Ml Syringe) 10 ml IVP 0100,0900,1700 RASHI Last Admin: 10/12/20 08:34 Dose: 10 ml Documented by: Levothyroxine [Synthroid] 75 mcg PO QDAC 02/09/17 Hydrochlorothiazide 12.5 mg PO DAILY 03/17/17 Cholecalciferol [Vitamin D3] 25 mcg PO DAILY 10/01/20 Potassium Chloride 10 meq PO DAILY 10/01/20 Aspirin EC [Ecotrin] 325 mg PO BID 10/10/20 Objective - Vital Signs/Intake & Output Reviewed Vital Signs: Yes Vital Signs: Vital Signs x48h Temp Pulse Resp BP Pulse Ox 10/12/20 04:23 37.2 C 73 16 141/76 H 94 10/12/20 00:48 36.9 C 81 16 140/69 H 96 Intake & Output: Intake & Output 10/09/20 10/10/20 10/11/20 10/12/20 23:59 23:59 23:59 23:59 Intake Total 1000 2610.353 631.768 Output Total 250 2750 1350 Balance 750 -139.647 -718.232 - Objective General Appearance: positive: No acute distress, Alert Eyes Bilateral: positive: Normal inspection, Conjunctivae nml ENT: positive: ENT inspection nml, Other (Nasal cannula in place.) Neck: positive: Nml inspection Respiratory: positive: No respiratory distress. negative: Wheezes, Rales Cardiovascular: positive: Regular rate & rhythm, No murmur. negative: Tachycardia Abdomen: positive: Non-tender, No distention. negative: Tenderness Skin: positive: Warm, Dry Extremities: positive: Pedal edema (+1 to +2 pitting edema in left lower extrem ity.), Other (Dressing is in place over left knee without surrounding erythema.). negative: Calf tenderness Neurologic/Psychiatric: negative: Disoriented to person, Disoriented to place - Lab Results Fish Bones: 10/12/20 04:10 10/12/20 04:10 Other Labs: Lab Results x24hrs 10/12/20 10/12/20 10/12/20 Range/Units 04:10 04:10 04:10 WBC 4.2 L (4.8-10.8) x10^3/uL RBC 3.19 L (4.20-5.40) 10^6/uL Hgb 9.1 L (12.0-16.0) g/dL Hct 28.2 L (37.0-47.0) % MCV 88.4 (81.0-99.0) fL MCH 28.5 (27.0-31.0) pg MCHC 32.3 (32.0-36.0) g/dL RDW 15.1 H (12.0-15.0) % Plt Count 94 L (130-450) 10^3/uL MPV 10.3 (7.9-10.8) fL Neut # (Auto) 3.2 (1.5-6.6) 10^3/uL Lymph # (Auto) 0.5 L (1.5-3.5) 10^3/uL [place] # (Auto) 0.4 (0.0-1.0) 10^3/uL Eos # (Auto) 0.1 (0.0-0.7) 10^3/uL Baso # (Auto) 0.0 (0.0-0.1) 10^3/uL Absolute Nucleated RBC 0.00 x10^3/uL Nucleated RBC % 0.0 /100WBC PT (9.9-12.6) secs INR (0.8-1.2) Anti-Xa Level 0.5 ( - 0.7) U/mL Sodium 138 (135-145) mmol/L Potassium 3.5 (3.5-5.0) mmol/L Chloride 106 (101-111) mmol/L Carbon Dioxide 23 (21-32) mmol/L Anion Gap 9.0 (6-13) BUN 7 (6-20) mg/dL Creatinine 0.6 (0.4-1.0) mg/dL Estimated GFR (MDRD) 97 (>89) Glucose 113 H (70-100) mg/dL Calcium 7.9 L (8.5-10.3) mg/dL Iron (28-170) ug/dL TIBC (250-450) ug/dL % Saturation (20-50) % Transferrin (192-382) mg/dL Ferritin (11.0-306.8) ng/mL 10/11/20 10/11/20 10/11/20 Range/Units 21:06 18:00 14:42 WBC 5.7 (4.8-10.8) x10^3/uL RBC 3.54 L (4.20-5.40) 10^6/uL Hgb 10.1 L (12.0-16.0) g/dL Hct 32.0 L (37.0-47.0) % MCV 90.4 (81.0-99.0) fL MCH 28.5 (27.0-31.0) pg MCHC 31.6 L (32.0-36.0) g/dL RDW 15.1 H (12.0-15.0) % Plt Count 99 L (130-450) 10^3/uL MPV 11.8 H (7.9-10.8) fL Neut # (Auto) (1.5-6.6) 10^3/uL Lymph # (Auto) (1.5-3.5) 10^3/uL [place] # (Auto) (0.0-1.0) 10^3/uL Eos # (Auto) (0.0-0.7) 10^3/uL Baso # (Auto) (0.0-0.1) 10^3/uL Absolute Nucleated RBC x10^3/uL Nucleated RBC % /100WBC PT (9.9-12.6) secs INR (0.8-1.2) Anti-Xa Level 0.6 0.8 H ( - 0.7) U/mL Sodium (135-145) mmol/L Potassium (3.5-5.0) mmol/L Chloride (101-111) mmol/L Carbon Dioxide (21-32) mmol/L Anion Gap (6-13) BUN (6-20) mg/dL Creatinine (0.4-1.0) mg/dL Estimated GFR (MDRD) (>89) Glucose (70-100) mg/dL Calcium (8.5-10.3) mg/dL Iron (28-170) ug/dL TIBC (250-450) ug/dL % Saturation (20-50) % Transferrin (192-382) mg/dL Ferritin (11.0-306.8) ng/mL 10/11/20 10/11/20 10/11/20 Range/Units 07:38 07:38 07:38 WBC (4.8-10.8) x10^3/uL RBC (4.20-5.40) 10^6/uL Hgb (12.0-16.0) g/dL Hct (37.0-47.0) % MCV (81.0-99.0) fL MCH (27.0-31.0) pg MCHC (32.0-36.0) g/dL RDW (12.0-15.0) % Plt Count (130-450) 10^3/uL MPV (7.9-10.8) fL Neut # (Auto) (1.5-6.6) 10^3/uL Lymph # (Auto) (1.5-3.5) 10^3/uL [place] # (Auto) (0.0-1.0) 10^3/uL Eos # (Auto) (0.0-0.7) 10^3/uL Baso # (Auto) (0.0-0.1) 10^3/uL Absolute Nucleated RBC x10^3/uL Nucleated RBC % /100WBC PT 14.0 H (9.9-12.6) secs INR 1.3 H (0.8-1.2) Anti-Xa Level 0.0 ( - 0.7) U/mL Sodium (135-145) mmol/L Potassium (3.5-5.0) mmol/L Chloride (101-111) mmol/L Carbon Dioxide (21-32) mmol/L Anion Gap (6-13) BUN (6-20) mg/dL Creatinine (0.4-1.0) mg/dL Estimated GFR (MDRD) (>89) Glucose (70-100) mg/dL Calcium (8.5-10.3) mg/dL Iron (28-170) ug/dL TIBC (250-450) ug/dL % Saturation (20-50) % Transferrin (192-382) mg/dL Ferritin 111.5 (11.0-306.8) ng/mL 10/11/20 Range/Units 07:38 WBC (4.8-10.8) x10^3/uL RBC (4.20-5.40) 10^6/uL Hgb (12.0-16.0) g/dL Hct (37.0-47.0) % MCV (81.0-99.0) fL MCH (27.0-31.0) pg MCHC (32.0-36.0) g/dL RDW (12.0-15.0) % Plt Count (130-450) 10^3/uL MPV (7.9-10.8) fL Neut # (Auto) (1.5-6.6) 10^3/uL Lymph # (Auto) (1.5-3.5) 10^3/uL [place] # (Auto) (0.0-1.0) 10^3/uL Eos # (Auto) (0.0-0.7) 10^3/uL Baso # (Auto) (0.0-0.1) 10^3/uL Absolute Nucleated RBC x10^3/uL Nucleated RBC % /100WBC PT (9.9-12.6) secs INR (0.8-1.2) Anti-Xa Level ( - 0.7) U/mL Sodium (135-145) mmol/L Potassium (3.5-5.0) mmol/L Chloride (101-111) mmol/L Carbon Dioxide (21-32) mmol/L Anion Gap (6-13) BUN (6-20) mg/dL Creatinine (0.4-1.0) mg/dL Estimated GFR (MDRD) (>89) Glucose (70-100) mg/dL Calcium (8.5-10.3) mg/dL Iron 11 L (28-170) ug/dL TIBC 214 L (250-450) ug/dL % Saturation 5 L (20-50) % Transferrin 153 L (192-382) mg/dL Ferritin (11.0-306.8) ng/mL Assessment/Plan - Problem List (1) Bilateral pulmonary embolism Impression: This appears to be provoked pulmonary embolism secondary to her recent orthop edic intervention. She is slightly hypoxic today saturating 89 to 90% on room air. She has improved to the mid 90s on 1 L of oxygen via nasal cannula. She still feels short of breath with exertion. Her troponin has been trending down. Her echocardiogram did not show evidence of right heart strain. Duplex is positive for left lower extremity DVT. We will keep her on heparin until she improves from a hypoxia and dyspnea standpoint. I did review the [facility] formulary and they prefer Pradaxa as anticoagulation. Pradaxa does require 5 days of parenteral anticoagulation and we will keep her on heparin for the time being. We can consider Lovenox on discharge if she is ready before the 5 days. (2) Paroxysmal atrial fibrillation with rapid ventricular response Impression: This was likely exacerbated by the pulmonary embolism. She has remained in a sinus rhythm. She is on heparin given the pulmonary embolism. She declined any AV iftikhar blocking agents for the time being. Continue to monitor on telemetry. (3) Thrombocytopenia Impression: Her platelet count is improved today to the 90s. Suspect this is likely due to consumption from a pulmonary embolism. We will continue the daily CBC while she is on anticoagulation. No evidence of bleeding. (4) Postoperative anemia Impression: She does have mild postoperative anemia but her hemoglobin is relatively stable. There has been no evidence of bleeding. We will continue to monitor overall she is on heparin. (5) Status post total left knee replacement Impression: She is doing well postoperatively. Continue with physical therapy and Tylenol as needed for pain. (6) Elevated LFTs Impression: Her LFTs had been improving. Suspect this likely may have been due to the use of Tylenol versus passive congestion given the pulmonary hypertension. Will recommend they be rechecked on outpatient basis in the future. (7) Hypertension Impression: She is hypertensive today with systolic in the 140s. We will continue her hydrochlorothiazide. (8) Hypokalemia Impression: We will continue with potassium supplementation. (9) Hypothyroidism Impression: Continue Synthroid. (10) Psoriasis Impression: Stable. She is not on any therapy. (11) Elevated troponin Impression: This was likely demand ischemia from the pulmonary embolism and atrial fibrillation. Her troponins have been trending down and her EKG did not suggest ischemia. Her echocardiogram had no wall motion abnormalities.
[2020-10-12] MEDS: hydroCHLOROthiazide 12.5 MG CAPSULE PO SCH (08:34)
[2020-10-12] MEDS: CHOLECALCIFEROL 25 MCG TABLET PO SCH (08:34)
[2020-10-12] MEDS: POTASSIUM CHLORIDE 10 MEQ CAPSULE PO SCH (08:34)
[2020-10-12 10:15] LABS: FECAL OCCULT BLOOD (FIT) NEGATIVE (NEGATIVE)
[2020-10-13] MEDS: SODIUM CHLORIDE FLUSH 0.9% 10 ML SYRINGE IVP SCH ×3 (00:01→16:08)
[2020-10-13] MEDS: HEPARIN 25000UNITS/500ML (D5W) 25,000 UNIT/500 ML BAG IV SCH ×2 (00:08→19:38)
[2020-10-13 04:41] LABS: BASOPHILS % (AUTO) 0.5 %; EOSINOPHILS # (AUTO) 0.1 10^3/uL (0.0-0.7); EOSINOPHILS % (AUTO) 2.4 %; HCT - HEMATOCRIT 28.7 % (37.0-47.0); HGB - HEMOGLOBIN 9.3 g/dL (12.0-16.0); LYMPHOCYTES # (AUTO) 0.4 10^3/uL (1.5-3.5); LYMPHOCYTES % (AUTO) 9.7 %; MEAN CORPUSCULAR HEMOGLOBIN 28.4 pg (27.0-31.0); MEAN CORPUSCULAR HGB CONC 32.4 g/dL (32.0-36.0); MEAN CORPUSCULAR VOLUME 87.5 fL (81.0-99.0); MEAN PLATELET VOLUME 10.3 fL (7.9-10.8); MONOCYTES # (AUTO) 0.5 10^3/uL (0.0-1.0); MONOCYTES % (AUTO) 11.1 %; NEUTROPHILS # (AUTO) 3.1 10^3/uL (1.5-6.6); NEUTROPHILS % (AUTO) 73.9 %; PLT - PLATELET COUNT 106 10^3/uL (130-450); RED BLOOD COUNT 3.28 10^6/uL (4.20-5.40); WHITE BLOOD COUNT 4.1 x10^3/uL (4.8-10.8)
[2020-10-13 04:49] LABS: CREATININE 0.6 mg/dL (0.4-1.0); POTASSIUM 3.3 mmol/L (3.5-5.0)
[2020-10-13] MEDS: LEVOTHYROXINE 75 MCG TABLET PO SCH (06:29)
--- NOTE | 2020-10-13 07:38 | PROVIDER PROGRESS NOTE ---
Subjective - Prog Note Date Prog Note Date: 10/13/20 - Subjective Subjective: Feels short of breath with exertion but feels that this has improved compared to yesterday. Still has a nonproductive cough. Her left lower extremity remains edematous and she does have pain in her left calf. Current Medications - Current Medications Current Medications: Active Medications Acetaminophen (Acetaminophen 325 Mg Tablet) 650 mg PO Q4HR PRN PRN Reason: Pain 1 to 4 Last Admin: 10/11/20 06:15 Dose: 650 mg Documented by: Cholecalciferol (Cholecalciferol 25 Mcg Tablet) 25 mcg PO DAILY [facility] Last Admin: 10/13/20 08:30 Dose: 25 mcg Documented by: Heparin Sodium (Porcine) (Heparin 1,000 Unit/Ml Vial) 2,250 unit 25 unit/kg (2250 unit) IVP Q6H PRN PRN Reason: ANTI-XA < 0.2 Hydrochlorothiazide (Hydrochlorothiazide 12.5 Mg Capsule) 12.5 mg PO DAILY [facility] Last Admin: 10/13/20 08:30 Dose: 12.5 mg Documented by: Heparin Sodium/Dextrose (Heparin Sodium/Dextrose) 25,000 unit in 500 mls @ 27.15 mls/hr IV .[id number] [facility]; Protocol Last Admin: 10/13/20 00:08 Dose: 14 unit/kg/hr, 25.34 mls/hr Documented by: Sodium Chloride (Normal Saline 0.9%) 500 mls @ 0 mls/hr IV Q24H PRN PRN Reason: TKO RATE Last Infusion: 10/12/20 22:09 Dose: 10 mls/hr Documented by: Levothyroxine Sodium (Levothyroxine 75 Mcg Tablet) 75 mcg PO QDAC [facility] Last Admin: 10/13/20 06:29 Dose: 75 mcg Documented by: Ondansetron HCl (Ondansetron Odt 4 Mg Tablet) 4 mg TL Q6HR PRN PRN Reason: Nausea / Vomiting Ondansetron HCl (Ondansetron 4 Mg/2 Ml Vial) 4 mg IVP Q6HR PRN PRN Reason: Nausea / Vomiting Potassium Chloride (Potassium Chloride 10 Meq Capsule) 10 meq PO DAILY [facility] Last Admin: 10/13/20 08:30 Dose: 10 meq Documented by: Sodium Chloride (Sodium Chloride Flush 0.9% 10 Ml Syringe) 10 ml IVP PRN PRN PRN Reason: NEEDED PER PROVIDER ORDERS Sodium Chloride (Sodium Chloride Flush 0.9% 10 Ml Syringe) 10 ml IVP 0100,0900,1700 RASHI Last Admin: 10/13/20 08:30 Dose: 10 ml Documented by: Levothyroxine [Synthroid] 75 mcg PO QDAC 02/09/17 Hydrochlorothiazide 12.5 mg PO DAILY 03/17/17 Cholecalciferol [Vitamin D3] 25 mcg PO DAILY 10/01/20 Potassium Chloride 10 meq PO DAILY 10/01/20 Aspirin EC [Ecotrin] 325 mg PO BID 10/10/20 Objective - Vital Signs/Intake & Output Reviewed Vital Signs: Yes Vital Signs: Vital Signs x48h Temp Pulse Resp BP Pulse Ox 10/13/20 03:02 36.8 C 76 20 168/78 H 94 10/12/20 23:39 36.2 C L 80 20 128/76 96 Intake & Output: Intake & Output 10/10/20 10/11/20 10/12/20 10/13/20 23:59 23:59 23:59 23:59 Intake Total 1000 2610.353 2880.407 254.861 Output Total 250 2750 2500 900 Balance 750 -139.647 380.407 -645.139 - Objective General Appearance: positive: No acute distress, Alert Eyes Bilateral: positive: Normal inspection, Conjunctivae nml ENT: positive: ENT inspection nml, Other (Nasal cannula in place.) Neck: positive: Nml inspection Respiratory: positive: No respiratory distress. negative: Wheezes, Rales, Rhonchi Cardiovascular: positive: Regular rate & rhythm, No murmur. negative: Tachycardia Skin: positive: Warm, Dry, Other (Small areas of ecchymosis over the left lower extremity surrounding the knee.) Extremities: positive: Pedal edema (+1 to +2 pitting edema left lower extremity.). negative: Calf tenderness Neurologic/Psychiatric: negative: Disoriented to person, Disoriented to place - Lab Results Fish Bones: 10/13/20 04:33 10/13/20 04:33 Other Labs: Lab Results x24hrs 10/13/20 10/13/20 10/13/20 Range/Units 04:33 04:33 04:33 WBC 4.1 L (4.8-10.8) x10^3/uL RBC 3.28 L (4.20-5.40) 10^6/uL Hgb 9.3 L (12.0-16.0) g/dL Hct 28.7 L (37.0-47.0) % MCV 87.5 (81.0-99.0) fL MCH 28.4 (27.0-31.0) pg MCHC 32.4 (32.0-36.0) g/dL RDW 15.0 (12.0-15.0) % Plt Count 106 L (130-450) 10^3/uL MPV 10.3 (7.9-10.8) fL Neut # (Auto) 3.1 (1.5-6.6) 10^3/uL Lymph # (Auto) 0.4 L (1.5-3.5) 10^3/uL [place] # (Auto) 0.5 (0.0-1.0) 10^3/uL Eos # (Auto) 0.1 (0.0-0.7) 10^3/uL Baso # (Auto) 0.0 (0.0-0.1) 10^3/uL Absolute Nucleated RBC 0.00 x10^3/uL Nucleated RBC % 0.0 /100WBC Anti-Xa Level 0.4 ( - 0.7) U/mL Sodium 135 (135-145) mmol/L Potassium 3.3 L (3.5-5.0) mmol/L Chloride 103 (101-111) mmol/L Carbon Dioxide 24 (21-32) mmol/L Anion Gap 8.0 (6-13) BUN 7 (6-20) mg/dL Creatinine 0.6 (0.4-1.0) mg/dL Estimated GFR (MDRD) 97 (>89) Glucose 125 H (70-100) mg/dL Calcium 8.0 L (8.5-10.3) mg/dL Stl Occult Blood (IFOB) (NEGATIVE) 10/12/20 Range/Units 09:47 WBC (4.8-10.8) x10^3/uL RBC (4.20-5.40) 10^6/uL Hgb (12.0-16.0) g/dL Hct (37.0-47.0) % MCV (81.0-99.0) fL MCH (27.0-31.0) pg MCHC (32.0-36.0) g/dL RDW (12.0-15.0) % Plt Count (130-450) 10^3/uL MPV (7.9-10.8) fL Neut # (Auto) (1.5-6.6) 10^3/uL Lymph # (Auto) (1.5-3.5) 10^3/uL [place] # (Auto) (0.0-1.0) 10^3/uL Eos # (Auto) (0.0-0.7) 10^3/uL Baso # (Auto) (0.0-0.1) 10^3/uL Absolute Nucleated RBC x10^3/uL Nucleated RBC % /100WBC Anti-Xa Level ( - 0.7) U/mL Sodium (135-145) mmol/L Potassium (3.5-5.0) mmol/L Chloride (101-111) mmol/L Carbon Dioxide (21-32) mmol/L Anion Gap (6-13) BUN (6-20) mg/dL Creatinine (0.4-1.0) mg/dL Estimated GFR (MDRD) (>89) Glucose (70-100) mg/dL Calcium (8.5-10.3) mg/dL Stl Occult Blood (IFOB) NEGATIVE (NEGATIVE) Assessment/Plan - Problem List (1) Bilateral pulmonary embolism Impression: This appears to be provoked pulmonary embolism secondary to her recent or thopedic intervention. Her oxygen requirements are slowly improving but she still requires half a liter to 1 L at times. She also continues to have dyspnea with exertion although this is improving. Echocardiogram did not suggest right heart strain. Duplex of the lower extremity did reveal a DVT in her left calf. She remains on heparin until her hypoxia and dyspnea improve. She will likely need Pradaxa and Lovenox on discharge given the preferred [facility] formulary but I did send her prescription today to see if Eliquis may be covered. She still feels short of breath with exertion. Her troponin has been trending down. Her echocardiogram did not show evidence of right heart strain. Duplex is positive for left lower extremity DVT. We will keep her on heparin until she improves from a hypoxia and dyspnea standpoint. I did review the [facility] formulary and they prefer Pradaxa as anticoagulation. Pradaxa does require 5 days of parenteral anticoagulation and we will keep her on heparin for the time being. We can consider Lovenox on discharge if she is ready before the 5 days. (2) Paroxysmal atrial fibrillation with rapid ventricular response Impression: This was likely exacerbated by the pulmonary embolism. She has remained in a sinus rhythm. She is on heparin given the pulmonary embolism. She declined any AV iftikhar blocking agents for the time being. Continue to monitor on telemetry. (3) Thrombocytopenia Impression: Platelet count continues to improve and is greater than 100. She was likely thrombocytopenic due to consumption from the pulmonary embolism. We will continue to monitor for signs of bleeding. (4) Postoperative anemia Impression: She does have mild postoperative anemia but her hemoglobin is stable. There has been no evidence of bleeding. We will continue to monitor overall she is on heparin. (5) Status post total left knee replacement Impression: She is doing well postoperatively. Continue with physical therapy and Tylenol as needed for pain. (6) Elevated LFTs Impression: Her LFTs had been improving. Suspect this likely may have been due to the use of Tylenol versus passive congestion given the pulmonary hypertension. Will recheck in AM. (7) Hypertension Impression: This is improved today with systolic in the 130s. Continue hydrochlorothiazide. (8) Hypokalemia Impression: Stable and chronic. Continue potassium supplementation. (9) Hypothyroidism Impression: Continue Synthroid. (10) Psoriasis Impression: Stable and not on therapy for this. (11) Elevated troponin Impression: This is demand ischemia due to pulmonary embolism and atrial fibrillation. There were no wall motion normalities on echo and EKG showed no ischemia.
[2020-10-13] MEDS: POTASSIUM CHLORIDE 10 MEQ CAPSULE PO SCH (08:30)
[2020-10-13] MEDS: hydroCHLOROthiazide 12.5 MG CAPSULE PO SCH (08:30)
[2020-10-13] MEDS: CHOLECALCIFEROL 25 MCG TABLET PO SCH (08:30)
--- NOTE | 2020-10-13 09:29 | PROVIDER PROGRESS NOTE ---
Subjective - General Admit Date: 10/11/20 Procedure Date: 10/08/20 Post Op Days: 5 Procedure Performed: Left total knee arthroplasty - Review of Systems Wound/Incisions: positive: Healing well, Dressing dry and intact. negative: Other (Mild bloody drainage without change in the past 24 hours into dressing) All Other Systems: positive: Reviewed and negative - Other Other Information/Narrative: She is making improvement with her overall condition. She is not feeling short of breath or having chest pain today. Her left knee pain is well controlled. She is receiving physical and occupational therapy and progressing satisfactorily. Exam she has mild swelling to the left knee. Incision is clean and dry and dressing is completely dry. Her neurovascular status is intact. She has good extension but does have extensor lag. Her flexion is close to 90 degrees. Neurovascular status is intact to left leg. Objective - Patient Data Vital Signs: Vital Signs x48h Temp Pulse Resp BP Pulse Ox 10/13/20 08:05 37.1 C 71 16 131/65 H 98 10/13/20 03:02 36.8 C 76 20 168/78 H 94 Intake & Output: Intake and Output Totals x24h 10/11/20 10/12/20 10/13/20 23:59 23:59 23:59 Intake Total 2610.353 2880.407 494.861 Output Total 2750 2500 900 Balance -139.647 380.407 -405.139 - Lab Results Lab Results: 10/13/20 04:33 10/13/20 04:33 Other Lab Results: Lab Results x24hrs 10/13/20 10/13/20 10/13/20 Range/Units 04:33 04:33 04:33 WBC 4.1 L (4.8-10.8) x10^3/uL RBC 3.28 L (4.20-5.40) 10^6/uL Hgb 9.3 L (12.0-16.0) g/dL Hct 28.7 L (37.0-47.0) % MCV 87.5 (81.0-99.0) fL MCH 28.4 (27.0-31.0) pg MCHC 32.4 (32.0-36.0) g/dL RDW 15.0 (12.0-15.0) % Plt Count 106 L (130-450) 10^3/uL MPV 10.3 (7.9-10.8) fL Neut # (Auto) 3.1 (1.5-6.6) 10^3/uL Lymph # (Auto) 0.4 L (1.5-3.5) 10^3/uL [place] # (Auto) 0.5 (0.0-1.0) 10^3/uL Eos # (Auto) 0.1 (0.0-0.7) 10^3/uL Baso # (Auto) 0.0 (0.0-0.1) 10^3/uL Absolute Nucleated RBC 0.00 x10^3/uL Nucleated RBC % 0.0 /100WBC Anti-Xa Level 0.4 ( - 0.7) U/mL Sodium 135 (135-145) mmol/L Potassium 3.3 L (3.5-5.0) mmol/L Chloride 103 (101-111) mmol/L Carbon Dioxide 24 (21-32) mmol/L Anion Gap 8.0 (6-13) BUN 7 (6-20) mg/dL Creatinine 0.6 (0.4-1.0) mg/dL Estimated GFR (MDRD) 97 (>89) Glucose 125 H (70-100) mg/dL Calcium 8.0 L (8.5-10.3) mg/dL Stl Occult Blood (IFOB) (NEGATIVE) 10/12/20 Range/Units 09:47 WBC (4.8-10.8) x10^3/uL RBC (4.20-5.40) 10^6/uL Hgb (12.0-16.0) g/dL Hct (37.0-47.0) % MCV (81.0-99.0) fL MCH (27.0-31.0) pg MCHC (32.0-36.0) g/dL RDW (12.0-15.0) % Plt Count (130-450) 10^3/uL MPV (7.9-10.8) fL Neut # (Auto) (1.5-6.6) 10^3/uL Lymph # (Auto) (1.5-3.5) 10^3/uL [place] # (Auto) (0.0-1.0) 10^3/uL Eos # (Auto) (0.0-0.7) 10^3/uL Baso # (Auto) (0.0-0.1) 10^3/uL Absolute Nucleated RBC x10^3/uL Nucleated RBC % /100WBC Anti-Xa Level ( - 0.7) U/mL Sodium (135-145) mmol/L Potassium (3.5-5.0) mmol/L Chloride (101-111) mmol/L Carbon Dioxide (21-32) mmol/L Anion Gap (6-13) BUN (6-20) mg/dL Creatinine (0.4-1.0) mg/dL Estimated GFR (MDRD) (>89) Glucose (70-100) mg/dL Calcium (8.5-10.3) mg/dL Stl Occult Blood (IFOB) NEGATIVE (NEGATIVE) - Current Medications Current Medications: Current Medications Generic Name Dose Route Start Last Admin Trade Name Freq PRN Reason Stop Dose Admin Acetaminophen 650 mg 10/10/20 14:00 10/11/20 06:15 Acetaminophen 325 Mg Tablet PO 650 mg Q4HR PRN Administration Pain 1 to 4 Cholecalciferol 25 mcg 10/11/20 09:00 10/13/20 08:30 Cholecalciferol 25 Mcg Tablet PO 25 mcg DAILY RASHI Administration Hydrochlorothiazide 12.5 mg 10/11/20 09:00 10/13/20 08:30 Hydrochlorothiazide 12.5 Mg Capsule PO 12.5 mg DAILY RASHI Administration Heparin Sodium/Dextrose 25,000 unit in 500 mls @ 27.15 mls/hr 10/11/20 08:00 10/13/20 00:08 Heparin Sodium/Dextrose IV 14 unit/kg/hr .[id number] RASHI 25.34 mls/hr Administration Protocol 15 UNIT/KG/HR Sodium Chloride 500 mls @ 0 mls/hr 10/11/20 22:26 10/12/20 22:09 Normal Saline 0.9% IV 10 mls/hr Q24H PRN Infusion TKO RATE TKO Levothyroxine Sodium 75 mcg 10/11/20 07:00 10/13/20 06:29 Levothyroxine 75 Mcg Tablet PO 75 mcg QDAC RASHI Administration Potassium Chloride 10 meq 10/11/20 09:00 10/13/20 08:30 Potassium Chloride 10 Meq Capsule PO 10 meq DAILY [facility]ASHI Administration Sodium Chloride 10 ml 10/10/20 17:00 10/13/20 08:30 Sodium Chloride Flush 0.9% 10 Ml Syringe IVP 10 ml 0100,0900,1700 RASHI Administration
[2020-10-14] MEDS: SODIUM CHLORIDE FLUSH 0.9% 10 ML SYRINGE IVP SCH ×3 (03:47→18:50)
[2020-10-14 04:28] LABS: BASOPHILS % (AUTO) 0.6 %; EOSINOPHILS # (AUTO) 0.1 10^3/uL (0.0-0.7); EOSINOPHILS % (AUTO) 1.9 %; HCT - HEMATOCRIT 28.7 % (37.0-47.0); HGB - HEMOGLOBIN 9.5 g/dL (12.0-16.0); LYMPHOCYTES # (AUTO) 0.5 10^3/uL (1.5-3.5); LYMPHOCYTES % (AUTO) 10.7 %; MEAN CORPUSCULAR HEMOGLOBIN 28.9 pg (27.0-31.0); MEAN CORPUSCULAR HGB CONC 33.1 g/dL (32.0-36.0); MEAN CORPUSCULAR VOLUME 87.2 fL (81.0-99.0); MEAN PLATELET VOLUME 10.3 fL (7.9-10.8); MONOCYTES # (AUTO) 0.6 10^3/uL (0.0-1.0); MONOCYTES % (AUTO) 12.4 %; NEUTROPHILS # (AUTO) 3.2 10^3/uL (1.5-6.6); NEUTROPHILS % (AUTO) 69.3 %; NRBC ABSOLUTE COUNT (AUTO) 0.03 x10^3/uL; NUCLEATED RED BLOOD CELLS AUTO 0.6 /100WBC; PLT - PLATELET COUNT 111 10^3/uL (130-450); RED BLOOD COUNT 3.29 10^6/uL (4.20-5.40); RED CELL DISTRIBUTION WIDTH 14.9 % (12.0-15.0); WHITE BLOOD COUNT 4.7 x10^3/uL (4.8-10.8)
[2020-10-14 04:42] LABS: ALBUMIN 2.8 g/dL (3.2-5.5); BILIRUBIN,DIRECT 0.3 mg/dL (0.1-0.5); BILIRUBIN,TOTAL 1.9 mg/dL (0.2-1.0); CALCIUM 8.4 mg/dL (8.5-10.3); CREATININE 0.6 mg/dL (0.4-1.0); POTASSIUM 3.2 mmol/L (3.5-5.0); TOTAL PROTEIN 6.2 g/dL (6.7-8.2)
[2020-10-14] MEDS: LEVOTHYROXINE 75 MCG TABLET PO SCH (06:20)
[2020-10-14] MEDS: CHOLECALCIFEROL 25 MCG TABLET PO SCH (08:38)
[2020-10-14] MEDS: hydroCHLOROthiazide 12.5 MG CAPSULE PO SCH (08:38)
[2020-10-14] MEDS ORDERED: POTASSIUM CHLORIDE 10 MEQ CAPSULE PO SCH (09:00)
[2020-10-14] MEDS ORDERED: POTASSIUM CHLOR 10 MEQ/100 ML 10 MEQ/100 ML BAG IV ONE (09:23)
[2020-10-14] MEDS ORDERED: SODIUM CHLORIDE 0.9% 500 ML IV ONE (10:10)
--- NOTE | 2020-10-14 10:16 | PROVIDER PROGRESS NOTE ---
Subjective - General Admit Date: 10/11/20 Procedure Date: 10/08/20 Post Op Days: 6 Procedure Performed: Left total knee arthroplasty - Review of Systems Wound/Incisions: positive: Healing well, Dressing dry and intact. negative: Other (Mild bloody drainage without change in the past 24 hours into dressing) Pulmonary: positive: Cough Gastrointestinal: positive: No symptoms Psychiatric: positive: No symptoms All Other Systems: positive: Reviewed and negative - Other Other Information/Narrative: Her pain to her left knee is mild and continues to improve. Her quadriceps strength is gradually improving but still has an extensor lag. She has good passive motion to left knee. Her dressing is dry and intact. Her incision is healing well. There is no neurovascular deficit to left leg. She is progressing with physical therapy using a walker to ambulate. Discussed with Dr. Bergeron yesterday and with the current hospitalist today; she seems to be progressing with of her pulmonary embolus. There is no sign of hematoma or hemorrhage at the operative site, left knee.Her pain to her left knee is mild and continues to improve. Her quadriceps strength is gradually improving but still has an extensor lag. She has good passive motion to left knee. Her cas ssing is dry and intact. Her incision is healing well. There is no neurovascular deficit to left leg. She is progressing with physical therapy using a walker to ambulate. Discussed with Dr. Bergeron yesterday and with the current hospitalist today; she seems to be progressing with of her pulmonary embolus. There is no sign of hematoma or hemorrhage at the operative site, left knee. Objective - Patient Data Vital Signs: Vital Signs x48h Temp Pulse Resp BP Pulse Ox 10/14/20 08:21 37.1 C 72 16 136/72 H 94 10/14/20 04:22 37.2 C 16 146/72 H 94 Intake & Output: Intake and Output Totals x24h 10/12/20 10/13/20 10/14/20 23:59 23:59 23:59 Intake Total 2880.407 1578.991 Output Total 2500 900 Balance 380.407 678.991 - Lab Results Lab Results: 10/14/20 04:23 10/14/20 04:23 Other Lab Results: Lab Results x24hrs 10/14/20 10/14/20 10/14/20 Range/Units 04:23 04:23 04:23 WBC 4.7 L (4.8-10.8) x10^3/uL RBC 3.29 L (4.20-5.40) 10^6/uL Hgb 9.5 L (12.0-16.0) g/dL Hct 28.7 L (37.0-47.0) % MCV 87.2 (81.0-99.0) fL MCH 28.9 (27.0-31.0) pg MCHC 33.1 (32.0-36.0) g/dL RDW 14.9 (12.0-15.0) % Plt Count 111 L (130-450) 10^3/uL MPV 10.3 (7.9-10.8) fL Neut # (Auto) 3.2 (1.5-6.6) 10^3/uL Lymph # (Auto) 0.5 L (1.5-3.5) 10^3/uL [place] # (Auto) 0.6 (0.0-1.0) 10^3/uL Eos # (Auto) 0.1 (0.0-0.7) 10^3/uL Baso # (Auto) 0.0 (0.0-0.1) 10^3/uL Absolute Nucleated RBC 0.03 x10^3/uL Nucleated RBC % 0.6 /100WBC Anti-Xa Level 0.3 ( - 0.7) U/mL Sodium 137 (135-145) mmol/L Potassium 3.2 L (3.5-5.0) mmol/L Chloride 103 (101-111) mmol/L Carbon Dioxide 25 (21-32) mmol/L Anion Gap 9.0 (6-13) BUN 6 (6-20) mg/dL Creatinine 0.6 (0.4-1.0) mg/dL Estimated GFR (MDRD) 97 (>89) Glucose 116 H (70-100) mg/dL Calcium 8.4 L (8.5-10.3) mg/dL Total Bilirubin 1.9 H (0.2-1.0) mg/dL Direct Bilirubin 0.3 (0.1-0.5) mg/dL AST 39 (10-42) IU/L ALT 51 (10-60) IU/L Alkaline Phosphatase 86 (42-121) IU/L Total Protein 6.2 L (6.7-8.2) g/dL Albumin 2.8 L (3.2-5.5) g/dL Globulin 3.4 (2.1-4.2) g/dL - Current Medications Current Medications: Current Medications Generic Name Dose Route Start Last Admin Trade Name Freq PRN Reason Stop Dose Admin Acetaminophen 650 mg 10/10/20 14:00 10/11/20 06:15 Acetaminophen 325 Mg Tablet PO 650 mg Q4HR PRN Administration Pain 1 to 4 Cholecalciferol 25 mcg 10/11/20 09:00 10/14/20 08:38 Cholecalciferol 25 Mcg Tablet PO 25 mcg DAILY RASHI Administration Hydrochlorothiazide 12.5 mg 10/11/20 09:00 10/14/20 08:38 Hydrochlorothiazide 12.5 Mg Capsule PO 12.5 mg DAILY RASHI Administration Heparin Sodium/Dextrose 25,000 unit in 500 mls @ 27.15 mls/hr 10/11/20 08:00 10/13/20 19:38 Heparin Sodium/Dextrose IV 14 unit/kg/hr .[id number] RASHI 25.34 mls/hr Administration Protocol 15 UNIT/KG/HR Sodium Chloride 500 mls @ 0 mls/hr 10/11/20 22:26 10/12/20 22:09 Normal Saline 0.9% IV 10 mls/hr Q24H PRN Infusion TKO RATE TKO Levothyroxine Sodium 75 mcg 10/11/20 07:00 10/14/20 06:20 Levothyroxine 75 Mcg Tablet PO 75 mcg QDAC RASHI Administration Potassium Chloride 20 meq 10/14/20 09:00 10/14/20 08:38 Potassium Chloride 10 Meq Capsule PO 20 meq DAILY RASHI Administration Sodium Chloride 10 ml 10/10/20 17:00 10/14/20 08:39 Sodium Chloride Flush 0.9% 10 Ml Syringe IVP 10 ml 0100,0900,1700 RASHI Administration
[2020-10-14] MEDS: SODIUM CHLORIDE 0.9% 500 ML IV PRN (10:23)
[2020-10-14] MEDS: SODIUM CHLORIDE FLUSH 0.9% 10 ML SYRINGE IVP PRN (10:37)
--- NOTE | 2020-10-14 15:29 | PROVIDER PROGRESS NOTE ---
Assessment/Plan - Problem List (1) Bilateral pulmonary embolism Assessment/Plan: This appears to be a provoked pulmonary embolism secondary to her recent orthopedic intervention. She also continues to have dyspnea and air hunger with exertion and with speaking although this is improving, slowly, she reports. I measured her O2 sat on r.a. and measured her resp rate while she was talking: O2 sat of 94% was the lowest, but resp rate was 28-32 at rest, during speaking. Echocardiogram DOES suggest right heart strain: it showed RV enlargement and pulm HTN present. Duplex of the lower extremity did reveal a DVT in her left calf. She remains hospitalized until her marked dyspnea improves. She will likely need Pradaxa at discharge given Pradaxa is on the preferred [facility] formulary. Pradaxa does require 5 days of parenteral anticoagulation and we will keep her on heparin for that time. (2) Acute pulmonary embolism with acute cor pulmonale Assessment/Plan: Her Echo findings did show RV dilation and pulmonary HTN (severe). She has a new murmur of tricuspid regurg and never had one before, she said. With those findings, she does have acute Cor pulmonale. (3) Paroxysmal atrial fibrillation with rapid ventricular response Impression: This was likely caused by the pulmonary embolism. She has remained in a sinus rhythm, since converting out of Afib. She is on heparin for the pulmonary embolism and will be switched to Pradaxa, probably tomorrow. She declined any AV iftikhar blocking agents for the time being. Continue to monitor on telemetry. (4) Thrombocytopenia Impression: Platelet count continues to improve and is greater than 100. She was likely thrombocytopenic due to consumption from the pulmonary embolism. We will continue to monitor for signs of bleeding. (5) Postoperative anemia Impression: She does have mild postoperative anemia but her hemoglobin is stable. There has been no evidence of bleeding. We will continue to monitor overall she is on heparin. (6) Status post total left knee replacement Impression: She is doing well postoperatively. Continue with physical therapy and she is needing only Tylenol prn for pain. (7) Hypertension Impression: This is improved with systolic in the 130s. Continue hydrochlorothiazide. (8) Hypokalemia Impression: Stable and chronic. Continue po potassium supplementation and iv K riders. (9) Hypothyroidism Impression: Continue Synthroid. (10) Psoriasis Impression: Stable and not on therapy for this. (11) Elevated troponin Impression: This was likely demand ischemia due to pulmonary embolism and rapid atrial fibrillation. There were no LV wall motion normalities on Echo and EKG showed no ischemia. (12) Elevated LFTs Impression: Resolved. I suspect this was due to passive congestion given the pulmonary hypertension. - Current Meds Current Meds: Current Medications Generic Name Dose Route Start Last Admin Trade Name Freq PRN Reason Stop Dose Admin Acetaminophen 650 mg 10/10/20 14:00 10/11/20 06:15 Acetaminophen 325 Mg Tablet PO 650 mg Q4HR PRN Administration Pain 1 to 4 Cholecalciferol 25 mcg 10/11/20 09:00 10/14/20 08:38 Cholecalciferol 25 Mcg Tablet PO 25 mcg DAILY RASHI Administration Hydrochlorothiazide 12.5 mg 10/11/20 09:00 10/14/20 08:38 Hydrochlorothiazide 12.5 Mg Capsule PO 12.5 mg DAILY RASHI Administration Heparin Sodium/Dextrose 25,000 unit in 500 mls @ 27.15 mls/hr 10/11/20 08:00 10/13/20 19:38 Heparin Sodium/Dextrose IV 14 unit/kg/hr .[id number] RASHI 25.34 mls/hr Administration Protocol 15 UNIT/KG/HR Sodium Chloride 500 mls @ 0 mls/hr 10/11/20 22:26 10/14/20 12:33 Normal Saline 0.9% IV 0 mls/hr Q24H PRN Infusion TKO RATE TKO Levothyroxine Sodium 75 mcg 10/11/20 07:00 10/14/20 06:20 Levothyroxine 75 Mcg Tablet PO 75 mcg QDAC RASHI Administration Potassium Chloride 20 meq 10/14/20 09:00 10/14/20 08:38 Potassium Chloride 10 Meq Capsule PO 20 meq DAILY RASHI Administration Sodium Chloride 10 ml 10/10/20 14:00 10/14/20 10:37 Sodium Chloride Flush 0.9% 10 Ml Syringe IVP 10 ml PRN PRN Administration NEEDED PER PROVIDER ORDERS Sodium Chloride 10 ml 10/10/20 17:00 10/14/20 08:39 Sodium Chloride Flush 0.9% 10 Ml Syringe IVP 10 ml 0100,0900,1700 RASHI Administration - Lab Result Fish Bone Diagrams: 10/14/20 04:23 10/14/20 04:23 Subjective - Subjective Patient Reports: Shortness of Breath (Just standing and pivoting makes her feel air hunger) Objective Vital Signs: Vital Signs - 24 hr 10/13/20 10/13/20 10/13/20 15:52 21:00 21:44 Temperature 36.7 C 37.4 C 36.9 C Heart Rate [ 74 79 Brachial] Respiratory 18 18 Rate Blood Pressure 157/83 H [Left Brachial artery] Blood Pressure 151/80 H [Right Brachial artery] O2 Saturation 94 95 10/14/20 10/14/20 10/14/20 01:00 04:22 08:21 Temperature 37.4 C 37.2 C 37.1 C Heart Rate [ 77 72 Brachial] Respiratory 18 16 16 Rate Blood Pressure 144/53 H [Left Brachial artery] Blood Pressure 146/72 H 136/72 H [Right Brachial artery] O2 Saturation 94 94 94 10/14/20 11:35 Temperature 36.9 C Heart Rate [ 72 Brachial] Respiratory 18 Rate Blood Pressure [Left Brachial artery] Blood Pressure 115/64 [Right Brachial artery] O2 Saturation 93 Oxygen O2 Source Room air I&O (Last 24 Hrs): Intake and Output Totals x24h 10/12/20 10/13/20 10/14/20 23:59 23:59 23:59 Intake Total 2880.407 7959.565 7399.833 Output Total 2500 900 Balance 380.407 624.019 3526.833 General: Alert, Oriented x3 HEENT: Mucous membr. moist/pink Neck: Supple, No JVD Neuro: Alert, Non Focal Cardiovascular: Regular rate, Other (2-3/6 murmur at LLSB, no gallop) Respiratory: Breath sounds nml, Other (In mild resp distress during speaking) Abdomen: Soft Extremities: Other (L leg 3+ edema, tense and shiny skin of leg, no knee tenderness, neg Maya's sign) - Results Results: Laboratory Results WBC 4.7 x10^3/uL (4.8-10.8) L 10/14/20 04:23 RBC 3.29 10^6/uL (4.20-5.40) L 10/14/20 04:23 Hgb 9.5 g/dL (12.0-16.0) L 10/14/20 04:23 Hct 28.7 % (37.0-47.0) L 10/14/20 04:23 MCV 87.2 fL (81.0-99.0) 10/14/20 04:23 MCH 28.9 pg (27.0-31.0) 10/14/20 04:23 MCHC 33.1 g/dL (32.0-36.0) 10/14/20 04:23 RDW 14.9 % (12.0-15.0) 10/14/20 04:23 Plt Count 111 10^3/uL (130-450) L 10/14/20 04:23 MPV 10.3 fL (7.9-10.8) 10/14/20 04:23 Neut # (Auto) 3.2 10^3/uL (1.5-6.6) 10/14/20 04:23 Lymph # (Auto) 0.5 10^3/uL (1.5-3.5) L 10/14/20 04:23 Amelia # (Auto) 0.6 10^3/uL (0.0-1.0) 10/14/20 04:23 Eos # (Auto) 0.1 10^3/uL (0.0-0.7) 10/14/20 04:23 Baso # (Auto) 0.0 10^3/uL (0.0-0.1) 10/14/20 04:23 Absolute Nucleated RBC 0.03 x10^3/uL 10/14/20 04:23 Nucleated RBC % 0.6 /100WBC 10/14/20 04:23 PT 14.0 secs (9.9-12.6) H 10/11/20 07:38 INR 1.3 (0.8-1.2) H 10/11/20 07:38 Anti-Xa Level 0.3 U/mL (-0.7) 10/14/20 04:23 Sodium 137 mmol/L (135-145) 10/14/20 04:23 Potassium 3.2 mmol/L (3.5-5.0) L 10/14/20 04:23 Chloride 103 mmol/L (101-111) 10/14/20 04:23 Carbon Dioxide 25 mmol/L (21-32) 10/14/20 04:23 Anion Gap 9.0 (6-13) 10/14/20 04:23 BUN 6 mg/dL (6-20) 10/14/20 04:23 Creatinine 0.6 mg/dL (0.4-1.0) 10/14/20 04:23 Estimated GFR (MDRD) 97 (>89) 10/14/20 04:23 Glucose 116 mg/dL (70-100) H 10/14/20 04:23 Calcium 8.4 mg/dL (8.5-10.3) L 10/14/20 04:23 Magnesium 1.7 mg/dL (1.7-2.8) 10/10/20 11:03 Iron 11 ug/dL (28-170) L 10/11/20 07:38 TIBC 214 ug/dL (250-450) L 10/11/20 07:38 % Saturation 5 % (20-50) L 10/11/20 07:38 Transferrin 153 mg/dL (192-382) L 10/11/20 07:38 Ferritin 111.5 ng/mL (11.0-306.8) 10/11/20 07:38 Total Bilirubin 1.9 mg/dL (0.2-1.0) H 10/14/20 04:23 Direct Bilirubin 0.3 mg/dL (0.1-0.5) 10/14/20 04:23 AST 39 IU/L (10-42) 10/14/20 04:23 ALT 51 IU/L (10-60) 10/14/20 04:23 Alkaline Phosphatase 86 IU/L (42-121) 10/14/20 04:23 Troponin I High Sens 91.1 ng/L (2.3-14.8) H* 10/11/20 05:30 B-Natriuretic Peptide 109 pg/mL (5-100) H 10/10/20 11:03 Total Protein 6.2 g/dL (6.7-8.2) L 10/14/20 04:23 Albumin 2.8 g/dL (3.2-5.5) L 10/14/20 04:23 Globulin 3.4 g/dL (2.1-4.2) 10/14/20 04:23 Albumin/Globulin Ratio 0.9 (1.0-2.2) L 10/10/20 11:03 Lipase 23 U/L (22-51) 10/10/20 11:03 TSH 1.71 uIU/mL (0.34-5.60) 10/10/20 11:03 Urine Color YELLOW 10/10/20 12:24 Urine Clarity CLEAR (CLEAR) 10/10/20 12:24 Urine pH 6.0 PH (5.0-7.5) 10/10/20 12:24 Ur Specific [place] 1.025 (1.002-1.030) 10/10/20 12:24 Urine Protein 30 mg/dL (NEGATIVE) H 10/10/20 12:24 Urine Glucose (UA) NEGATIVE mg/dL (NEGATIVE) 10/10/20 12:24 Urine Ketones >=80 mg/dL (NEGATIVE) H 10/10/20 12:24 Urine Occult Blood NEGATIVE (NEGATIVE) 10/10/20 12:24 Urine Nitrite NEGATIVE (NEGATIVE) 10/10/20 12:24 Urine Bilirubin NEGATIVE (NEGATIVE) 10/10/20 12:24 Urine Urobilinogen 0.2 (NORMAL) E.U./dL (NORMAL) 10/10/20 12:24 Ur Leukocyte Esterase NEGATIVE (NEGATIVE) 10/10/20 12:24 Urine RBC 0-5 /HPF (0-5) 10/10/20 12:24 Urine WBC 0-3 /HPF (0-5) 10/10/20 12:24 Ur Squamous Epith Cells MOD Squamous (<= Few) H 10/10/20 12:24 Urine Bacteria Rare /HPF (None Seen) 10/10/20 12:24 Ur Microscopic Review INDICATED 10/10/20 12:24 Urine Culture Comments NOT INDICATED 10/10/20 12:24 Nasal Adenovirus (PCR) NOT DETECTED 10/10/20 13:11 Nasal B. parapertussis DNA (PCR) NOT DETECTED 10/10/20 13:11 Nasal Coronavir 229E PCR NOT DETECTED 10/10/20 13:11 Nasal Coronavir HKU1 PCR NOT DETECTED 10/10/20 13:11 Nasal Coronavir NL63 PCR NOT DETECTED 10/10/20 13:11 Nasal Coronavir OC43 PCR NOT DETECTED 10/10/20 13:11 Nasal Enterovir/Rhinovir PCR NOT DETECTED 10/10/20 13:11 Nasal Influenza B PCR NOT DETECTED 10/10/20 13:11 Nasal Influenza A PCR NOT DETECTED 10/10/20 13:11 Nasal Parainfluen 1 PCR NOT DETECTED 10/10/20 13:11 Nasal Parainfluen 2 PCR NOT DETECTED 10/10/20 13:11 Nasal Parainfluen 3 PCR NOT DETECTED 10/10/20 13:11 Nasal Parainfluen 4 PCR NOT DETECTED 10/10/20 13:11 Nasal RSV (PCR) NOT DETECTED 10/10/20 13:11 Nasal B.pertussis DNA PCR NOT DETECTED 10/10/20 13:11 Nasal C.pneumoniae (PCR) NOT DETECTED 10/10/20 13:11 Joesph Human Metapneumo PCR NOT DETECTED 10/10/20 13:11 Nasal M.pneumoniae (PCR) NOT DETECTED 10/10/20 13:11 Nasal SARS-CoV-2 (PCR) NOT DETECTED 10/10/20 13:11 Stl Occult Blood (IFOB) NEGATIVE (NEGATIVE) 10/12/20 09:47 - Procedures Procedures: Procedures REPLACEMENT OF LEFT LENS WITH SYNTH SUB, PERC APPROACH (03/17/17) REPLACEMENT OF RIGHT LENS WITH SYNTH SUB, PERC APPROACH (02/10/17)
[2020-10-14] MEDS: HEPARIN 25000UNITS/500ML (D5W) 25,000 UNIT/500 ML BAG IV SCH (16:34)
[2020-10-15] MEDS: SODIUM CHLORIDE FLUSH 0.9% 10 ML SYRINGE IVP SCH ×3 (01:20→16:17)
[2020-10-15 04:55] LABS: BASOPHILS % (AUTO) 0.8 %; EOSINOPHILS % (AUTO) 2.8 %; HCT - HEMATOCRIT 28.9 % (37.0-47.0); HGB - HEMOGLOBIN 9.3 g/dL (12.0-16.0); LYMPHOCYTES % (AUTO) 10.7 %; MEAN CORPUSCULAR HEMOGLOBIN 28.5 pg (27.0-31.0); MEAN CORPUSCULAR HGB CONC 32.2 g/dL (32.0-36.0); MEAN CORPUSCULAR VOLUME 88.7 fL (81.0-99.0); MEAN PLATELET VOLUME 10.4 fL (7.9-10.8); MONOCYTES % (AUTO) 11.3 %; NEUTROPHILS % (AUTO) 67.3 %; PLT - PLATELET COUNT 127 10^3/uL (130-450); RED BLOOD COUNT 3.26 10^6/uL (4.20-5.40); WHITE BLOOD COUNT 4.9 x10^3/uL (4.8-10.8)
[2020-10-15 05:02] LABS: CALCIUM 8.2 mg/dL (8.5-10.3); CREATININE 0.7 mg/dL (0.4-1.0); POTASSIUM 3.4 mmol/L (3.5-5.0)
[2020-10-15 05:23] LABS: ABNORMAL LYMPHS % (MANUAL) 0 %
[2020-10-15 05:36] LABS: BAND NEUTROPHILS % (MANUAL) 2 %; DIFFERENTIAL COMMENT MANUAL DIFFERENTIAL; EOSINOPHILS # (MANUAL) 0.3 10^3/uL (0-0.7); LYMPHOCYTES # (MANUAL) 0.4 10^3/uL (1.5-3.5); LYMPHOCYTES % (MANUAL) 8 %; METAMYELOCYTES % (MANUAL) 4 %; MONOCYTES # (MANUAL) 0.1 10^3/uL (0.0-1.0); MYELOCYTES % (MANUAL) 4 %; NEUTROPHILS # (MANUAL) 3.7 10^3/uL (1.5-6.6); PLATELET ESTIMATE, MANUAL NORMAL (130-450,000) (NORMAL); RBC MORPHOLOGY (MULTIPLE) NORMAL APPEARANCE (NORMAL)
[2020-10-15] MEDS: LEVOTHYROXINE 75 MCG TABLET PO SCH (07:06)
[2020-10-15] MEDS: HEPARIN 25000UNITS/500ML (D5W) 25,000 UNIT/500 ML BAG IV SCH ×2 (08:25→14:08)
[2020-10-15] MEDS ORDERED: POTASSIUM CHLORIDE 10 MEQ CAPSULE PO SCH (09:00)
[2020-10-15] MEDS: hydroCHLOROthiazide 12.5 MG CAPSULE PO SCH (09:24)
[2020-10-15] MEDS: CHOLECALCIFEROL 25 MCG TABLET PO SCH (09:25)
[2020-10-15] MEDS ORDERED: FERROUS GLUCONATE 324 MG TABLET PO SCH (12:00)
--- NOTE | 2020-10-15 12:48 | PROVIDER PROGRESS NOTE ---
Assessment/Plan - Current Meds Current Meds: Current Medications Generic Name Dose Route Start Last Admin Trade Name Daquan PRN Reason Stop Dose Admin Acetaminophen 650 mg 10/10/20 14:00 10/11/20 06:15 Acetaminophen 325 Mg Tablet PO 650 mg Q4HR PRN Administration Pain 1 to 4 Cholecalciferol 25 mcg 10/11/20 09:00 10/15/20 09:25 Cholecalciferol 25 Mcg Tablet PO 25 mcg DAILY RASHI Administration Ferrous Gluconate 324 mg 10/15/20 12:00 10/15/20 12:21 Ferrous Gluconate 324 Mg Tablet PO 324 mg Q24H RASHI Administration Hydrochlorothiazide 12.5 mg 10/11/20 09:00 10/15/20 09:24 Hydrochlorothiazide 12.5 Mg Capsule PO 12.5 mg DAILY RASHI Administration Heparin Sodium/Dextrose 25,000 unit in 500 mls @ 27.15 mls/hr 10/11/20 08:00 10/15/20 08:25 Heparin Sodium/Dextrose IV Not Given .[id number] RASHI Protocol 15 UNIT/KG/HR Sodium Chloride 500 mls @ 0 mls/hr 10/11/20 22:26 10/14/20 16:30 Normal Saline 0.9% IV Infused Q24H PRN Infusion TKO RATE TKO Levothyroxine Sodium 75 mcg 10/11/20 07:00 10/15/20 07:06 Levothyroxine 75 Mcg Tablet PO 75 mcg QDAC RASHI Administration Potassium Chloride 40 meq 10/15/20 09:00 10/15/20 09:24 Potassium Chloride 10 Meq Capsule PO 40 meq DAILY RASHI Administration Sodium Chloride 10 ml 10/10/20 14:00 10/14/20 10:37 Sodium Chloride Flush 0.9% 10 Ml Syringe IVP 10 ml PRN PRN Administration NEEDED PER PROVIDER ORDERS Sodium Chloride 10 ml 10/10/20 17:00 10/15/20 09:25 Sodium Chloride Flush 0.9% 10 Ml Syringe IVP Not Given 0100,0900,1700 RASHI - Lab Result Fish Bone Diagrams: 10/15/20 04:35 10/15/20 04:35 - Additional Planning My Orders: My Active Orders 10/15/20 09:00 Potassium Chloride [Micro-K] 40 meq PO DAILY 10/15/20 12:00 Ferrous Gluconate [Fergon] 324 mg PO Q24H 10/15/20 12:41 ANGIO CHEST W/WO [CT] Routine 10/16/20 05:00 BMP - BASIC METABOLIC PANEL [CHEM] DAILYLAB CBC [CBC - COMP BLD CT W/AUTO DIFF] [HEME] DAILYLAB MAGNESIUM [CHEM] DAILYLAB Objective Vital Signs: Vital Signs - 24 hr 10/14/20 10/14/20 10/15/20 15:44 20:09 00:02 Temperature 37.3 C 37.4 C 37.3 C Heart Rate Heart Rate [ 91 77 79 Brachial] Respiratory 18 18 18 Rate Blood Pressure 149/78 H 122/63 144/77 H [Right Brachial artery] O2 Saturation 97 94 92 10/15/20 10/15/20 10/15/20 00:08 03:37 07:39 Temperature 37 C 36.9 C Heart Rate Heart Rate [ 73 69 Brachial] Respiratory 20 16 Rate Blood Pressure 143/76 H 122/72 [Right Brachial artery] O2 Saturation 94 95 96 10/15/20 10/15/20 10:30 11:23 Temperature 36.8 C Heart Rate 90 Heart Rate [ 73 Brachial] Respiratory 18 Rate Blood Pressure 115/56 L [Right Brachial artery] O2 Saturation 97 Oxygen O2 Source Room air I&O (Last 24 Hrs): Intake and Output Totals x24h 10/13/20 10/14/20 10/15/20 23:59 23:59 23:59 Intake Total 5444.874 8938.833 922 Output Total 900 Balance 707.962 2754.833 922 - Results Results: Laboratory Results WBC 4.9 x10^3/uL (4.8-10.8) 10/15/20 04:35 RBC 3.26 10^6/uL (4.20-5.40) L 10/15/20 04:35 Hgb 9.3 g/dL (12.0-16.0) L 10/15/20 04:35 Hct 28.9 % (37.0-47.0) L 10/15/20 04:35 MCV 88.7 fL (81.0-99.0) 10/15/20 04:35 MCH 28.5 pg (27.0-31.0) 10/15/20 04:35 MCHC 32.2 g/dL (32.0-36.0) 10/15/20 04:35 RDW 15.0 % (12.0-15.0) 10/15/20 04:35 Plt Count 127 10^3/uL (130-450) L 10/15/20 04:35 MPV 10.4 fL (7.9-10.8) 10/15/20 04:35 Neut # (Auto) Not Reportable 10/15/20 04:35 Lymph # (Auto) Not Reportable 10/15/20 04:35 Dukes # (Auto) Not Reportable 10/15/20 04:35 Eos # (Auto) Not Reportable 10/15/20 04:35 Baso # (Auto) Not Reportable 10/15/20 04:35 Absolute Nucleated RBC Not Reportable 10/15/20 04:35 Total Counted 100 10/15/20 04:35 Band Neuts % (Manual) 2 % (0-10) 10/15/20 04:35 Abnorm Lymph % (Manual) 0 % 10/15/20 04:35 Metamyelocytes % 4 % (-0) H 10/15/20 04:35 Myelocytes % 4 % (-0) H 10/15/20 04:35 Nucleated RBC % Not Reportable 10/15/20 04:35 Neutrophils # (Manual) 3.7 10^3/uL (1.5-6.6) 10/15/20 04:35 Lymphocytes # (Manual) 0.4 10^3/uL (1.5-3.5) L 10/15/20 04:35 Monocytes # (Manual) 0.1 10^3/uL (0.0-1.0) 10/15/20 04:35 Eosinophils # (Manual) 0.3 10^3/uL (0-0.7) 10/15/20 04:35 Basophils # (Manual) 0.0 10^3/uL (0-0.1) 10/15/20 04:35 Differential Comment MANUAL DIFFERENTIAL 10/15/20 04:35 Platelet Estimate NORMAL (130-450,000) (NORMAL) 10/15/20 04:35 RBC Morph Micro Appear NORMAL APPEARANCE (NORMAL) 10/15/20 04:35 PT 14.0 secs (9.9-12.6) H 10/11/20 07:38 INR 1.3 (0.8-1.2) H 10/11/20 07:38 Anti-Xa Level 0.4 U/mL (-0.7) 10/15/20 04:35 Sodium 135 mmol/L (135-145) 10/15/20 04:35 Potassium 3.4 mmol/L (3.5-5.0) L 10/15/20 04:35 Chloride 102 mmol/L (101-111) 10/15/20 04:35 Carbon Dioxide 24 mmol/L (21-32) 10/15/20 04:35 Anion Gap 9.0 (6-13) 10/15/20 04:35 BUN 7 mg/dL (6-20) 10/15/20 04:35 Creatinine 0.7 mg/dL (0.4-1.0) 10/15/20 04:35 Estimated GFR (MDRD) 81 (>89) L 10/15/20 04:35 Glucose 112 mg/dL (70-100) H 10/15/20 04:35 Calcium 8.2 mg/dL (8.5-10.3) L 10/15/20 04:35 Magnesium 1.7 mg/dL (1.7-2.8) 10/10/20 11:03 Iron 11 ug/dL (28-170) L 10/11/20 07:38 TIBC 214 ug/dL (250-450) L 10/11/20 07:38 % Saturation 5 % (20-50) L 10/11/20 07:38 Transferrin 153 mg/dL (192-382) L 10/11/20 07:38 Ferritin 111.5 ng/mL (11.0-306.8) 10/11/20 07:38 Total Bilirubin 1.9 mg/dL (0.2-1.0) H 10/14/20 04:23 Direct Bilirubin 0.3 mg/dL (0.1-0.5) 10/14/20 04:23 AST 39 IU/L (10-42) 10/14/20 04:23 ALT 51 IU/L (10-60) 10/14/20 04:23 Alkaline Phosphatase 86 IU/L (42-121) 10/14/20 04:23 Troponin I High Sens 91.1 ng/L (2.3-14.8) H* 10/11/20 05:30 B-Natriuretic Peptide 109 pg/mL (5-100) H 10/10/20 11:03 Total Protein 6.2 g/dL (6.7-8.2) L 10/14/20 04:23 Albumin 2.8 g/dL (3.2-5.5) L 10/14/20 04:23 Globulin 3.4 g/dL (2.1-4.2) 10/14/20 04:23 Albumin/Globulin Ratio 0.9 (1.0-2.2) L 10/10/20 11:03 Lipase 23 U/L (22-51) 10/10/20 11:03 TSH 1.71 uIU/mL (0.34-5.60) 10/10/20 11:03 Urine Color YELLOW 10/10/20 12:24 Urine Clarity CLEAR (CLEAR) 10/10/20 12:24 Urine pH 6.0 PH (5.0-7.5) 10/10/20 12:24 Ur Specific [place] 1.025 (1.002-1.030) 10/10/20 12:24 Urine Protein 30 mg/dL (NEGATIVE) H 10/10/20 12:24 Urine Glucose (UA) NEGATIVE mg/dL (NEGATIVE) 10/10/20 12:24 Urine Ketones >=80 mg/dL (NEGATIVE) H 10/10/20 12:24 Urine Occult Blood NEGATIVE (NEGATIVE) 10/10/20 12:24 Urine Nitrite NEGATIVE (NEGATIVE) 10/10/20 12:24 Urine Bilirubin NEGATIVE (NEGATIVE) 10/10/20 12:24 Urine Urobilinogen 0.2 (NORMAL) E.U./dL (NORMAL) 10/10/20 12:24 Ur Leukocyte Esterase NEGATIVE (NEGATIVE) 10/10/20 12:24 Urine RBC 0-5 /HPF (0-5) 10/10/20 12:24 Urine WBC 0-3 /HPF (0-5) 10/10/20 12:24 Ur Squamous Epith Cells MOD Squamous (<= Few) H 10/10/20 12:24 Urine Bacteria Rare /HPF (None Seen) 10/10/20 12:24 Ur Microscopic Review INDICATED 10/10/20 12:24 Urine Culture Comments NOT INDICATED 10/10/20 12:24 Nasal Adenovirus (PCR) NOT DETECTED 10/10/20 13:11 Nasal B. parapertussis DNA (PCR) NOT DETECTED 10/10/20 13:11 Nasal Coronavir 229E PCR NOT DETECTED 10/10/20 13:11 Nasal Coronavir HKU1 PCR NOT DETECTED 10/10/20 13:11 Nasal Coronavir NL63 PCR NOT DETECTED 10/10/20 13:11 Nasal Coronavir OC43 PCR NOT DETECTED 10/10/20 13:11 Nasal Enterovir/Rhinovir PCR NOT DETECTED 10/10/20 13:11 Nasal Influenza B PCR NOT DETECTED 10/10/20 13:11 Nasal Influenza A PCR NOT DETECTED 10/10/20 13:11 Nasal Parainfluen 1 PCR NOT DETECTED 10/10/20 13:11 Nasal Parainfluen 2 PCR NOT DETECTED 10/10/20 13:11 Nasal Parainfluen 3 PCR NOT DETECTED 10/10/20 13:11 Nasal Parainfluen 4 PCR NOT DETECTED 10/10/20 13:11 Nasal RSV (PCR) NOT DETECTED 10/10/20 13:11 Nasal B.pertussis DNA PCR NOT DETECTED 10/10/20 13:11 Nasal C.pneumoniae (PCR) NOT DETECTED 10/10/20 13:11 Joesph Human Metapneumo PCR NOT DETECTED 10/10/20 13:11 Nasal M.pneumoniae (PCR) NOT DETECTED 10/10/20 13:11 Nasal SARS-CoV-2 (PCR) NOT DETECTED 10/10/20 13:11 Stl Occult Blood (IFOB) NEGATIVE (NEGATIVE) 10/12/20 09:47 - Procedures Procedures: Procedures REPLACEMENT OF LEFT LENS WITH SYNTH SUB, PERC APPROACH (03/17/17) REPLACEMENT OF RIGHT LENS WITH SYNTH SUB, PERC APPROACH (02/10/17)
[2020-10-15] MEDS ORDERED: IOVERSOL 320 100 ML VIAL IVP ONE (13:02)
--- NOTE | 2020-10-15 13:54 | CT Report ---
PROCEDURE: ANGIO CHEST W/WO INDICATIONS: F/U pulm emboli CONTRAST: IV CONTRAST: Optiray 320 ml: 80 PO CONTRAST: *NO PO CONTRAST TECHNIQUE: After the administration of intravenous contrast, 2 mm thick sections acquired from the pulmonary api omero to the posterior costophrenic angles. 3-dimensional maximum intensity projection (MIP) coronal a nd sagittal reformats were then acquired through the thorax. For radiation dose reduction, the follow ing was used: automated exposure control, adjustment of mA and/or kV according to patient size. COMPARISON: 10/10/2020 CT examination FINDINGS: Image quality: Excellent. Pulmonary arteries: Pulmonary arteries are normal in size. Previously seen filling defects within th e right lower lobe pulmonary artery have increased in diameter, and are nearly occlusive within the r ight lower lobe pulmonary artery. Remaining previously seen emboli within the bilateral lobar, segmen fatmata, and subsegmental pulmonary arteries have decreased in size. Lungs and pleura: No evidence of pneumonia nor edema. Calcified granuloma within the right lower lobe posteriorly, as before. No evidence of pulmonary infarction. No pleural effusions or pneumothorax. Central and peripheral airways are patent. Mediastinum: Heart size is normal, without pericardial effusion. No mediastinal or hilar adenopathy calcified granuloma within the right hilar and subcarinal locations. Thoracic aorta is normal in sam iber and enhancement. Esophagus is normal in caliber, without hiatal hernia. Bones and chest wall: No suspicious bony lesions. Ribs and thoracic spine appear intact throughout. The thyroid is normal. No axillary or supraclavicular adenopathy. Abdomen: Visualized portions of the upper abdomen demonstrate multiple calculi within the gallbladde r lumen as well as splenic calcifications, as before. IMPRESSION: 1. The pulmonary emboli previously seen within the right lower lobe pulmonary artery have become more confluent and are nearly occlusive. However, there is no evidence of associated pulmonary infarction . Otherwise, previously seen bilateral pulmonary emboli have decreased. 2. Remote granulomatous disease. 3. Cholelithiasis. Reviewed by: Julio Salvador MD on 10/15/2020 1:53 PM PST Approved by: Julio Salvador MD on 10/15/2020 1:53 PM PST Station ID: [id number]
[2020-10-15] MEDS: SODIUM CHLORIDE FLUSH 0.9% 10 ML SYRINGE IVP PRN (14:08)
[2020-10-15 15:48] VITALS: BP 133/67
--- NOTE | 2020-10-15 16:22 | Discharge Plan ---
Discharge Plan Problem Reviewed?: Yes Disposition: 02 Transfer Acute Care Hosp Condition: Serious No Smoking: If you smoke, Please STOP! Call for help. Follow-up with: Vinay Espinal MD [Primary Care Provider] -
--- NOTE | 2020-10-15 16:23 | DISCHARGE SUMMARY ---
Discharge Summary Admit Date: 10/10/20 Discharge Date: 10/15/20 Discharging Provider: Dr Gisselle Castillo Primary Care Provider: Dr Vinay Espinal Code Status: Attempt Resuscitation Condition at Discharge: Serious Discharge Disposition: 02 Transfer Acute Care Hosp Discharge Facility Name: [facility] History of Present Illness: From the admission H&P of Dr Juan Conklin: This is a pleasant 79-year-old white female, retired pharmacist, with a past medical history significant for hypertension, hypothyroidism, psoriasis who presents today complaining of fatigue and weakness that began this morning. She was just discharged from our facility yesterday after undergoing a left total knee replacement on September,. She states she felt fine yesterday evening but when she woke up this morning, she felt very weak and fatigued. She drank some water this morning and then had an episode of emesis. She felt ligh theaded and dizzy. She also felt slightly diaphoretic at times. She reported no chest pain or dyspnea and denied palpitations. She sat in a recliner and elevated her legs briefly. She then checked her blood pressure as she felt it was likely low and it came back at 90/46. Her pulse was also noted to be in the 140s. She contacted her orthopedic surgeon who spoke with her primary care provider and it was recommended that she go to the emergency department. She denies any prior history of atrial fibrillation or heart disease. She has never had a stress test. She is normally quite active and never has chest pain or dyspnea. She is a non-smoker. She has been taking Tylenol postoperatively to help control her pain. She has been taking the medication prescribed by orthopedics for DVT prophylaxis. In the emergency department, she was found to be in atrial fibrillation with a heart rate in the 140s. She was given diltiazem iv push and she eventually converted to a sinus rhythm. Repeat EKG showed a sinus rhythm without any ischemic changes. Her labs were significant for a platelet count in the 90s as well as mildly elevated LFTs. Her troponin was also initially elevated at 100 and repeat was 108. Her chest x-ray was unremarkable. Given her elevated troponin and new onset atrial fibrillation, the Hospitalist team was consulted to manage the patient in Observation. I did discuss goals of care with the patient and she would like to be a full code. - HOSPITAL COURSE Hospital Course: (1) Bilateral pulmonary embolism She underwent CTAngio of the chest on 10/10/20 and was found to have bilateral pulmonary emboli that involved multiple segmental and subsegmental pulmonary arteries and an RV/LV ratio of 1.3, consistent with RV strain. She was admitted to Inpatient status. She was treated with Heparin. This appears to be provoked pulmonary emboli secondary to her recent orthopedic procedure. She was dyspneic and had air hunger with exertion and with speaking. She was desaturating to 89% and needed supplemental oxygen started at 3L per n.c. Duplex Doppler evaluation of the lower extremities did reveal a DVT in her left calf and that calf became more swollen, but was not painful. She was treated with Heparin. Pradaxa was planned to be started since it is on the preferred [facility] formulary, but Pradaxa does require 5 days of parenteral anticoagulation and we kept her on Heparin for that time. She remained hospitalized because of her marked dyspnea with activity or speaking, which she reported felt like she could not get in a full breath. She also developed a dry cough. The supplemental oxygen was weaned to off at rest but she underwent exercise oximetry test with RT, and she did desaturate below 90% on 2 occasions with walking, then needed to stop and regain her breath and the sats improved to 94%. She underwent repeat chest imaging with CTAngio on 10/15/20, and this showed slight improvement in the left sided PE, but near complete occlusion of the right pulmonary artery from PE. [facility] was contacted for transfer and she was accepted in transfer to [facility] for being managed at a facility with higher level of care. (2) Occlusive thrombus As above, seen on repeat CTA chest imaging. (3) Acute pulmonary embolism with acute cor pulmonale The RV was larger than the LV by CT imaging. A resting Echo was done and her Echo findings did show RV dilation but with normal RV function and pulmonary HTN (PA pressure 63 mmHg). She had a new murmur of tricuspid regurg, as she reported never having a murmur before. With those findings, she does have acute Cor Pulmonale from the PE. (4) Paroxysmal atrial fibrillation with rapid ventricular response This was likely caused by the pulmonary embolism. She remained in a sinus rhythm, after converting out of Afib. She was treated with full dose Heparin (for the pulmonary embolism) and was to be switched to Pradaxa. She declined to be started on any AV iftikhar blocking agents for the time being. (5) Thrombocytopenia Plts were 91 at admission. There were no signs of bleeding. She was likely thrombocytopenic due to consumption from the pulmonary embolism. Platelet count was low (91>> 83>> 99>> 94) but started to improve (106>> 111>> and was 127 at the time of transfer). (6) Iron deficiency anemia She was found to have mild postoperative Iron deficincy anemia but her hemoglobin remained 8.8-10.0 and did not drop further. There was no evidence of bleeding. She was started on oral Iron replacement. (7) Status post total left knee replacement She was doing well postoperatively. She continued working with physical therapy and was needing only Tylenol prn for pain. (8) Hypertension Her low BP at admission was treated with iv fluids and stopping her HCTZ. Her systolic BP improved to the 130s. We then resumed her Hydrochlorothiazide to treat the significant left leg edema. (9) Hypokalemia Her low Potassium of 3.2-3.4 was likely chronic from HCTZ. We continued po potassium supplementation and replaced with iv K riders also. (10) Hypothyroidism TSH was checked because of the new Afib and it was normal at 1.7. She was continued on her home dose of Synthroid. (11) Psoriasis Stable and not on therapy for this. (12) Elevated troponin Her troponins were 100>> 108>> 126>> then dropped to 112>> 91 by the next day . This was likely demand ischemia due to pulmonary embolism and rapid atrial fibrillation. There were no LV wall motion normalities on Echo and EKG showed no ischemia. (13) Elevated LFTs Her AST was 85 and ALT was 86, at admission, likely due to passive congestion given the pulmonary hypertension. These resolved after 4 days. - ALLERGIES Allergies/Adverse Reactions: Allergies Allergy/AdvReac Type Severity Reaction Status Date / Time coffee (Coffea arabica) Allergy Anaphylaxis Verified 10/08/20 07:52 adhesive AdvReac Rash Verified 10/08/20 13:24 Wnzoisl-Fvi-Ity Reductase AdvReac Cramps Verified 10/08/20 13:24 Inhibitor - MEDICATIONS Home Medications: Ambulatory Orders Medication Instructions Recorded Confirmed Levothyroxine [Synthroid] 75 mcg PO QDAC 02/09/17 10/10/20 Hydrochlorothiazide 12.5 mg PO DAILY 03/17/17 10/10/20 Cholecalciferol [Vitamin D3] 25 mcg PO DAILY 10/01/20 10/10/20 Potassium Chloride 10 meq PO DAILY 10/01/20 10/10/20 Aspirin EC [Ecotrin] 325 mg PO BID 10/10/20 10/10/20 - PHYSICAL EXAM AT DISCHARGE General Appearance: positive: No acute distress, Alert Eyes Bilateral: positive: Normal inspection, EOMI ENT: positive: ENT inspection nml, No signs of dehydration Neck: positive: Nml inspection, No JVD Respiratory: positive: Other (Dry cough, diminished breath sounds bilaterally, no wheezing or rales.) Cardiovascular: positive: Regular rate & rhythm, Systolic murmur Abdomen: positive: Non-tender, No distention Skin: positive: Warm, Dry Extremities: positive: Other (L knee and calf moderately swollen, skinn of cox taut) Neurologic/Psychiatric: positive: Oriented x3 (Non-focal ) - LABS Result Diagrams: 10/15/20 04:35 10/15/20 04:35 - FOLLOW UP Follow Up: This will be determined after her hospitalization at [facility]. - TIME SPENT Time Spent in Discharge (Minutes): 60
== END 2020-10-15 18:10 | disposition short-term general hospital (02) | DRG 175 ==
LOC: EDUNIT# → ED 10:36 → MS2 14:00 → OBSVTOIN 10-11 10:00
PROVIDERS: ADMIT Internal Medicine; ATTEND Internal Medicine
DX: I26.09 Other pulmonary embolism with acute cor pulmonale (principal); I82.4Z2 Acute embolism and thrombosis of unspecified deep veins of left distal lower extremity; I24.8 Other forms of acute ischemic heart disease; I48.0 Paroxysmal atrial fibrillation; D69.59 Other secondary thrombocytopenia; D50.9 Iron deficiency anemia, unspecified; Z96.652 Presence of left artificial knee joint; D69.6 Thrombocytopenia, unspecified; I10 Essential (primary) hypertension; E87.6 Hypokalemia; E03.9 Hypothyroidism, unspecified; L40.9 Psoriasis, unspecified; R77.8 Other specified abnormalities of plasma proteins; R79.89 Other specified abnormal findings of blood chemistry; I27.20 Pulmonary hypertension, unspecified; Z20.822 Contact with and (suspected) exposure to COVID-19
CPT/HCPCS: 36415; 71045; 71275; 80048; 80053; 80076; 81001; 82274; 82728; 83540; 83690; 83735; 83880; 84443; 84466; 84484; 85025; 85027; 85520; 85610; 87631; 93005; 93306; 93970; 94761; 96365; 96366; 96367; 96368; 96375; 96376; 97110; 97116; 97161; 97530; 99284; 99285; A9270; G0378; J7120; Q9967; 0202U; 81003; 82272; 87086

== ENCOUNTER 2020-12-04 14:12 | Outpatient (CLI) | payer MEDICARE ==
--- NOTE | 2020-12-04 17:06 | XRAY Report ---
PROCEDURE: Knee Standing LT INDICATIONS: TOTAL LT KNEE REPLACEMENT TECHNIQUE: 3 views of the left knee, and 1 views of the right knee. COMPARISON: Knee x-ray 10/08/2020 FINDINGS: Bones: No acute fractures or dislocations. No suspicious bony lesions. Bilateral knee arthroplastie s are present. Hardware is intact without evidence of hardware fracture or periprosthetic loosening. Soft tissues: Mild left knee joint effusion. No suspicious soft tissue calcification. IMPRESSION: Bilateral arthroplasties as above. Reviewed by: Dannielle Cleveland MD on 12/04/2020 5:05 PM PDT Approved by: Dannielle Cleveland MD on 12/04/2020 5:05 PM PDT Station ID: [id number]
== END 2020-12-04 23:59 | disposition home or self-care (01) ==
LOC: DI.N 14:12
PROVIDERS: ATTEND Physician Assistant
DX: Z96.659 Presence of unspecified artificial knee joint (principal)

== ENCOUNTER 2021-09-10 08:27 | Outpatient (CLI) | payer MEDICARE ==
[2021-09-10 12:15] LABS: BASOPHILS % (AUTO) 0.6 %; HCT - HEMATOCRIT 43.1 % (37.0-47.0); HGB - HEMOGLOBIN 13.7 g/dL (12.0-16.0); LYMPHOCYTES # (AUTO) 0.4 10^3/uL (1.5-3.5); LYMPHOCYTES % (AUTO) 12.7 %; MEAN CORPUSCULAR HGB CONC 31.8 g/dL (32.0-36.0); MEAN CORPUSCULAR VOLUME 84.8 fL (81.0-99.0); MEAN PLATELET VOLUME 11.7 fL (7.9-10.8); MONOCYTES # (AUTO) 0.3 10^3/uL (0.0-1.0); MONOCYTES % (AUTO) 10.2 %; NEUTROPHILS # (AUTO) 2.4 10^3/uL (1.5-6.6); NEUTROPHILS % (AUTO) 75.5 %; PLT - PLATELET COUNT 153 10^3/uL (130-450); RED BLOOD COUNT 5.08 10^6/uL (4.20-5.40); RED CELL DISTRIBUTION WIDTH 15.2 % (12.0-15.0); WHITE BLOOD COUNT 3.2 x10^3/uL (4.8-10.8)
[2021-09-10 12:42] LABS: THYROID STIMULATING HORMONE 2.46 uIU/mL (0.34-5.60)
[2021-09-10 12:56] LABS: ALBUMIN 3.5 g/dL (3.2-5.5); ALKALINE PHOSPHATASE 50 IU/L (42-121); ALT ALANINE AMINOTRANSFERASE 19 IU/L (10-60); AST ASPARTATE AMINOTRANSFERASE 22 IU/L (10-42); BILIRUBIN,TOTAL 0.9 mg/dL (0.2-1.0); BUN - BLOOD UREA NITROGEN 18 mg/dL (6-20); CALCIUM 8.8 mg/dL (8.5-10.3); CARBON DIOXIDE - CO2 27 mmol/L (21-32); CHLORIDE 102 mmol/L (101-111); CHOL/HDL RATIO 3.5 (<4.4); CHOLESTEROL 176 mg/dL; CREATININE 0.7 mg/dL (0.4-1.0); GFR - MDRD 81 (>89); GLUCOSE 91 mg/dL (70-100); HDL CHOLESTEROL 51 mg/dL; LDL CHOLESTEROL,CALCULATED 110 mg/dL; LDL/HDL RATIO 2.2 (<4.4); POTASSIUM 3.9 mmol/L (3.5-5.0); SODIUM 137 mmol/L (135-145); TRIGLYCERIDES 74 mg/dL; VLDL CHOLESTEROL 15 mg/dL
[2021-09-10 17:49] LABS: ESTIMATED AVERAGE GLUCOSE 114 mg/dL (70-100); HEMOGLOBIN A1c% 5.6 % (4.27-6.07)
== END 2021-09-10 23:59 | disposition home or self-care (01) ==
LOC: LAB.WCP 08:27
PROVIDERS: ATTEND Family Medicine
DX: I82.439 Acute embolism and thrombosis of unspecified popliteal vein (principal); E78.5 Hyperlipidemia, unspecified; L40.9 Psoriasis, unspecified; I10 Essential (primary) hypertension
CPT/HCPCS: 36415; 80053; 80061; 83036; 83721; 84443; 85025

== ENCOUNTER 2021-12-16 08:00 | Outpatient (CLI) | payer MEDICARE ==
--- NOTE | 2021-12-17 09:13 | XRAY Report ---
PROCEDURE: Wrist 2 View LT INDICATIONS: L WRIST PX TECHNIQUE: 2 views of the wrist were acquired. COMPARISON: None FINDINGS: Bones: Moderate left wrist joint osteoarthritic changes are seen particularly along radial aspect of left wrist prominent at scaphotrapezial joint and first CMC joint. No fractures or dislocations. No suspicious bony lesions. Scaphoid view: Scaphoid is grossly intact. No evidence of osteonecrosis. Soft tissues: Chondrocalcinosis in the region of triangle of fibrocartilage is seen. IMPRESSION: Moderate left wrist osteoarthritis particularly along radial aspect as above. No acute fracture or di slocation. Mild dorsal soft tissue swelling. Chondrocalcinosis as above. Reviewed by: Parminder Beltre MD on 12/17/2021 9:12 AM PDT Approved by: Parminder Beltre MD on 12/17/2021 9:12 AM PDT Station ID: [id number]
== END 2021-12-16 23:59 | disposition home or self-care (01) ==
LOC: DI.N 08:00
PROVIDERS: ATTEND Nurse Practitioner
DX: M19.032 Primary osteoarthritis, left wrist (principal); M11.232 Other chondrocalcinosis, left wrist; M79.89 Other specified soft tissue disorders

== ENCOUNTER 2021-12-29 16:06 | Outpatient (CLI) | payer MEDICARE ==
[2021-12-29 17:48] LABS: BASOPHILS % (AUTO) 0.6 %; EOSINOPHILS % (AUTO) 0.8 %; HCT - HEMATOCRIT 42.6 % (37.0-47.0); HGB - HEMOGLOBIN 13.8 g/dL (12.0-16.0); LYMPHOCYTES # (AUTO) 0.7 10^3/uL (1.5-3.5); LYMPHOCYTES % (AUTO) 14.1 %; MEAN CORPUSCULAR HEMOGLOBIN 27.9 pg (27.0-31.0); MEAN CORPUSCULAR HGB CONC 32.4 g/dL (32.0-36.0); MEAN CORPUSCULAR VOLUME 86.1 fL (81.0-99.0); MEAN PLATELET VOLUME 11.6 fL (7.9-10.8); MONOCYTES # (AUTO) 0.6 10^3/uL (0.0-1.0); NEUTROPHILS # (AUTO) 3.5 10^3/uL (1.5-6.6); NEUTROPHILS % (AUTO) 71.9 %; PLT - PLATELET COUNT 145 10^3/uL (130-450); RED BLOOD COUNT 4.95 10^6/uL (4.20-5.40); WHITE BLOOD COUNT 4.9 x10^3/uL (4.8-10.8)
[2021-12-29 18:10] LABS: CALCIUM 8.6 mg/dL (8.5-10.3); CREATININE 0.6 mg/dL (0.4-1.0); CRP - C-REACTIVE PROTEIN 7.8 mg/dL (0-1.0); POTASSIUM 3.6 mmol/L (3.5-5.0)
== END 2021-12-29 23:59 | disposition home or self-care (01) ==
LOC: LAB.N 16:06
PROVIDERS: ATTEND Physician Assistant
DX: M25.532 Pain in left wrist (principal)
CPT/HCPCS: 36415; 80048; 85025; 85651; 86140

== ENCOUNTER 2022-09-08 13:49 | Outpatient (CLI) | payer MEDICARE ==
--- NOTE | 2022-09-09 12:16 | Mammography Report ---
BILATERAL DIGITAL SCREENING MAMMOGRAM 3D/2D: 09/08/2022 CLINICAL: Family history of breast cancer. Routine screening. Comparison is made to exams dated: 06/26/2018 mammogram, 05/11/2017 mammogram, 01/03/2014 mammogram, an d 12/02/2011 mammogram - [facility]. Both breasts are heterogeneously dense, which may obscure small masses (category c / 51-75% glandular tissue). No significant masses, calcifications, or other findings are seen in either breast. There has been no significant interval change. IMPRESSION: NEGATIVE There is no mammographic evidence of malignancy. A 1 year screening mammogram is recommended. Based on the Tyrer Cuzick model (a risk assessment model) the patients lifetime risk is 5.0% and her 10 year risk is 0.0%. According to the ACR, ACS, and NCCN guidelines, an annual breast MRI exam rita g with mammogram is recommended if the patients lifetime risk is 20% or greater. This exam was interpreted at Station ID: [id number]. NOTE: For mammograms, a report in lay terms will be sent to the patient. Approximately 15% of breast malignancies will not be visualized mammographically. In the management of a palpable breast mass, a negative mammogram must not discourage biopsy of a clinically suspicious lesion. Electronically Signed By: Letty [email or web address]/larry:09/08/2022 16:19:05 ACR BI-RADS Category 1: Negative 3341F PARENCHYMAL PATTERN: (D) - The breast(s) demonstrate(s) heterogeneously dense fibroglandular federico solorzano. BI-RADS CATEGORY: (1) - 1 RECOMMENDATION: (ANNUAL) - Recommend routine annual screening mammography. [id number] 1 year screening LATERALITY: (B)
== END 2022-09-08 13:50 | disposition home or self-care (01) ==
LOC: DI.N 13:49
DX: Z12.31 Encounter for screening mammogram for malignant neoplasm of breast (principal); Z80.3 Family history of malignant neoplasm of breast

== ENCOUNTER 2022-11-12 09:08 | Outpatient (CLI) | payer MEDICARE ==
[2022-11-12 12:02] LABS: EOSINOPHILS # (AUTO) 0.1 10^3/uL (0.0-0.7); EOSINOPHILS % (AUTO) 1.5 %; HCT - HEMATOCRIT 45.1 % (37.0-47.0); HGB - HEMOGLOBIN 14.3 g/dL (12.0-16.0); LYMPHOCYTES # (AUTO) 0.6 10^3/uL (1.5-3.5); LYMPHOCYTES % (AUTO) 13.5 %; MEAN CORPUSCULAR HEMOGLOBIN 27.6 pg (27.0-31.0); MEAN CORPUSCULAR HGB CONC 31.7 g/dL (32.0-36.0); MEAN CORPUSCULAR VOLUME 87.1 fL (81.0-99.0); MEAN PLATELET VOLUME 11.9 fL (7.9-10.8); MONOCYTES # (AUTO) 0.4 10^3/uL (0.0-1.0); MONOCYTES % (AUTO) 10.3 %; NEUTROPHILS % (AUTO) 73.5 %; PLT - PLATELET COUNT 148 10^3/uL (130-450); RED BLOOD COUNT 5.18 10^6/uL (4.20-5.40); RED CELL DISTRIBUTION WIDTH 14.2 % (12.0-15.0); WHITE BLOOD COUNT 4.1 x10^3/uL (4.8-10.8)
[2022-11-12 12:26] LABS: ALBUMIN 3.8 g/dL (3.2-5.5); ALBUMIN/GLOBULIN RATIO 1.1 (1.0-2.2); ALKALINE PHOSPHATASE 56 IU/L (42-121); ALT ALANINE AMINOTRANSFERASE 18 IU/L (10-60); AST ASPARTATE AMINOTRANSFERASE 21 IU/L (10-42); BILIRUBIN,TOTAL 0.9 mg/dL (0.2-1.0); BUN - BLOOD UREA NITROGEN 17 mg/dL (6-20); CALCIUM 8.9 mg/dL (8.5-10.3); CARBON DIOXIDE - CO2 28 mmol/L (21-32); CHLORIDE 105 mmol/L (101-111); CHOL/HDL RATIO 3.9 (<4.4); CHOLESTEROL 188 mg/dL; CREATININE 0.7 mg/dL (0.4-1.0); GFR - MDRD 81 (>89); GLUCOSE 97 mg/dL (70-100); HDL CHOLESTEROL 48 mg/dL; LDL CHOLESTEROL,CALCULATED 123 mg/dL; LDL/HDL RATIO 2.6 (<4.4); POTASSIUM 4.1 mmol/L (3.5-5.0); SODIUM 141 mmol/L (135-145); TOTAL PROTEIN 7.4 g/dL (6.7-8.2); TRIGLYCERIDES 84 mg/dL; VLDL CHOLESTEROL 17 mg/dL
[2022-11-12 12:31] LABS: THYROID STIMULATING HORMONE 1.72 uIU/mL (0.34-5.60)
[2022-11-12 12:33] LABS: FREE T3 2.61 pg/mL (2.5-3.9); FREE T4 (FREE THYROXINE) 1.16 ng/dL (0.58-1.64)
== END 2022-11-12 09:09 | disposition home or self-care (01) ==
LOC: LAB.N 09:08
PROVIDERS: ATTEND Family Medicine
DX: I10 Essential (primary) hypertension (principal); E03.9 Hypothyroidism, unspecified; L40.9 Psoriasis, unspecified; E78.5 Hyperlipidemia, unspecified
CPT/HCPCS: 36415; 80053; 80061; 83721; 84439; 84443; 84481; 85025

== ENCOUNTER 2023-09-29 11:18 | Outpatient (CLI) | payer MEDICARE ==
--- NOTE | 2023-09-30 12:05 | Mammography Report ---
BILATERAL DIGITAL SCREENING MAMMOGRAM 3D/2D: 09/29/2023 CLINICAL: Routine screening. Family history of breast cancer. Comparison is made to exams dated: 09/08/2022 mammogram, 06/26/2018 mammogram, 05/11/2017 mammogram, mammogram, and 12/02/2011 mammogram - [facility]. Both breasts are heterogeneously dense, which may obscure small masses (category c / 51-75% glandular tissue). No significant masses, calcifications, or other findings are seen in either breast. There has been no significant interval change. IMPRESSION: NEGATIVE There is no mammographic evidence of malignancy. A 1 year screening mammogram is recommended. Based on the Tyrer Cuzick model (a risk assessment model) the patient's lifetime risk is 4.3% and her 10 year risk is 0.0%. According to the ACR, ACS, and NCCN guidelines, an annual breast MRI exam rita g with mammogram is recommended if the patient's lifetime risk is 20% or greater. This exam was interpreted at Station ID: [id number]. NOTE: For mammograms, a report in lay terms will be sent to the patient. Approximately 15% of breast malignancies will not be visualized mammographically. In the management of a palpable breast mass, a negative mammogram must not discourage biopsy of a clinically suspicious lesion. Electronically Signed By: Shamar sadler/larry:09/29/2023 13:21:21 letter sent: No_Letter ACR BI-RADS Category 1: Negative 3341F PARENCHYMAL PATTERN: (D) - The breast(s) demonstrate(s) heterogeneously dense fibroglandular federico solorzano. BI-RADS CATEGORY: (1) - 1 Mammogram [id number] 1 year screening LATERALITY: (B)
== END 2023-09-29 11:19 | disposition home or self-care (01) ==
LOC: DI.N 11:18
DX: Z12.31 Encounter for screening mammogram for malignant neoplasm of breast (principal); R92.333 Mammographic heterogeneous density, bilateral breasts; Z80.3 Family history of malignant neoplasm of breast

== ENCOUNTER 2024-03-09 08:34 | Outpatient (CLI) | payer MEDICARE ==
[2024-03-09 12:21] LABS: BASOPHILS % (AUTO) 0.5 %; EOSINOPHILS % (AUTO) 0.7 %; HCT - HEMATOCRIT 44.8 % (37.0-47.0); HGB - HEMOGLOBIN 14.1 g/dL (12.0-16.0); LYMPHOCYTES # (AUTO) 0.7 10^3/uL (1.5-3.5); LYMPHOCYTES % (AUTO) 11.8 %; MEAN CORPUSCULAR HEMOGLOBIN 26.5 pg (27.0-31.0); MEAN CORPUSCULAR HGB CONC 31.5 g/dL (32.0-36.0); MEAN CORPUSCULAR VOLUME 84.2 fL (81.0-99.0); MEAN PLATELET VOLUME 11.5 fL (7.9-10.8); MONOCYTES # (AUTO) 0.4 10^3/uL (0.0-1.0); MONOCYTES % (AUTO) 7.7 %; NEUTROPHILS # (AUTO) 4.5 10^3/uL (1.5-6.6); NEUTROPHILS % (AUTO) 79.1 %; PLT - PLATELET COUNT 168 10^3/uL (130-450); RED BLOOD COUNT 5.32 10^6/uL (4.20-5.40); RED CELL DISTRIBUTION WIDTH 15.6 % (12.0-15.0); WHITE BLOOD COUNT 5.7 x10^3/uL (4.8-10.8)
[2024-03-09 12:45] LABS: ALBUMIN/GLOBULIN RATIO 1.1 (1.0-2.2); ALKALINE PHOSPHATASE 63 IU/L (42-121); ALT ALANINE AMINOTRANSFERASE 23 IU/L (10-60); AST ASPARTATE AMINOTRANSFERASE 21 IU/L (10-42); BILIRUBIN,TOTAL 0.9 mg/dL (0.2-1.0); BUN - BLOOD UREA NITROGEN 20 mg/dL (6-20); CALCIUM 9.5 mg/dL (8.5-10.3); CARBON DIOXIDE - CO2 27 mmol/L (21-32); CHLORIDE 105 mmol/L (101-111); CHOL/HDL RATIO 3.8 (<4.4); CHOLESTEROL 163 mg/dL; CREATININE 0.8 mg/dL (0.6-1.3); GFR - MDRD 69 (>89); GLUCOSE 90 mg/dL (74-104); HDL CHOLESTEROL 43 mg/dL; LDL CHOLESTEROL,CALCULATED 104 mg/dL; LDL/HDL RATIO 2.4 (<4.4); POTASSIUM 4.3 mmol/L (3.5-4.5); SODIUM 139 mmol/L (135-145); TOTAL PROTEIN 7.6 g/dL (6.4-8.9); TRIGLYCERIDES 82 mg/dL; VLDL CHOLESTEROL 16 mg/dL
[2024-03-09 12:52] LABS: THYROID STIMULATING HORMONE 1.93 uIU/mL (0.34-5.60)
[2024-03-09 14:23] LABS: ESTIMATED AVERAGE GLUCOSE 108 mg/dL (70-100); HEMOGLOBIN A1c% 5.4 % (4.27-6.07)
== END 2024-03-09 08:35 | disposition home or self-care (01) ==
LOC: LAB.N 08:34
PROVIDERS: ATTEND Family Medicine
DX: E03.9 Hypothyroidism, unspecified (principal); Z96.652 Presence of left artificial knee joint; M17.0 Bilateral primary osteoarthritis of knee; R73.9 Hyperglycemia, unspecified; D70.9 Neutropenia, unspecified; L40.9 Psoriasis, unspecified
CPT/HCPCS: 36415; 80053; 80061; 83036; 83721; 84443; 85025